=== PATIENT | male | born 1975 | race African-American/Black ===

== ENCOUNTER 2017-09-13 09:49 | Inpatient (IN) | payer OTHER ==
[2017-09-13 12:49] LABS: #Basophils 0.1 thou/uL (0.0-0.2); #Eosinphils 0.2 thou/uL (0.0-0.7); #Monocytes 0.6 thou/uL (0.11-0.59); #Neutrophils 5.6 thou/uL (1.40-6.50); %Basophils 0.6 % (0.0-1.0); %Eosinophils 2.4 % (0.0-10.0); %Lymphocytes 31.4 % (21.0-51.0); %Monocytes 6.4 % (0.0-10.0); %Neutrophils 59.3 % (42.0-75.0); Hemoglobin 13.3 g/dL (14.0-18.0); MDiff Complete? YES; Macrocytosis SLIGHT = 6-15 cells (100X) (0-5/hpf); Mean Corpuscular HGB CONC 34.8 g/dL (32.0-36.0); Mean Corpuscular Hemoglobin 36.3 pg (27.0-31.0); Mean Platelet Volume 6.7 fL (7.4-10.4); Platelet Count 253 thou/uL (130-400); RBC Distribution Width 13.2 % (11.5-14.5); Red Blood Cell (RBC) Count 3.66 mill/uL (4.70-6.10); White Blood Cell (WBC) Count 9.5 thou/uL (4.8-10.8)
[2017-09-13 12:54] LABS: ALT (SGPT) 28 U/L (8-55); AST (SGOT) 28 U/L (5-34); Albumin 3.9 g/dL (3.5-5.0); Alkaline Phosphatase 154 U/L (40-150); Anion Gap 17 mmol/L (10-20); BUN (Urea Nitrogen) 35 mg/dL (8.9-20.6); Bilirubin, Total 0.8 mg/dL (0.2-1.2); Calc. Creatinine Clearance 0 mL/min (70-130); Calcium 9.9 mg/dL (7.8-10.44); Carbon Dioxide 19 mmol/L (22-29); Chloride 104 mmol/L (98-107); Estimated GFR-MDRD 20; Globulin 5.6 g/dL (2.4-3.5); Glucose 80 mg/dL (70-105); Lipase 40 U/L (8-78); Protein, Total 9.5 g/dL (6.0-8.3); Sodium 137 mmol/L (136-145)
[2017-09-13 12:57] LABS: Potassium 2.9 mmol/L (3.5-5.1)
[2017-09-13] MEDS ORDERED: Potassium Chloride 20 MEQ TAB ONE (13:49)
--- NOTE | 2017-09-13 14:18 | RAD ---
UPRIGHT PORTABLE CHEST 1 VIEW: HISTORY: A 42-year-old male with a history of cough, not feeling well. FINDINGS: Monitor leads overlie the chest. Heart size is within normal limits. The lungs are clear. No confl uent pneumonia, overt edema, or pleural effusion. IMPRESSION: No acute intrathoracic disease. No evidence of pneumonia. Stable from prior study. Tracheostomy tu be in place. Gastrostomy tube overlies the left abdomen. POS: [facility]
--- NOTE | 2017-09-13 14:40 | RAD ---
ABDOMEN 2 VIEWS: HISTORY: A 42-year-old male with a history of bleeding around the feeding tube. The patient has not been feel ing well. FINDINGS: There is a PEG tube in place. There is some marked solid fecal material noted in the colon including a dilated rectum, evidence for significant obstipation. No evidence for free intraperitoneal air. Somewhat heterogeneous bony demineralization. Probable small right renal calculi. Possible small le ft renal calculus. IMPRESSION: PEG tube in place. Extensive solid fecal material throughout the colon including a markedly dilated rectum, evidence for significant obstipation. Probable small bilateral renal calculi. Bone deminera lization. POS: [facility]
[2017-09-13 16:45] LABS: Bilirubin Negative (Negative); Blood, Urine Moderate (Negative); Clarity CLEAR (Clear); Glucose, Urine (Dipstick) 100 mg/dL (Negative); Leukocyte Small (Negative); Nitrite Negative (Negative); Protein, Urine (Dipstick) 300 mg/dL (Neg-Trace); Specific Gravity, Urine 1.018 (1.002-1.036); Urobilinogen 0.2 mg/dL (0.2-1.0)
[2017-09-13 16:47] LABS: Bacteria/HPF Rare-Few HPF (None Seen); Hyaline Casts/LPF 4-6 HYALINE CAST LPF (0-3 Hyaline); RBC/HPF GREATER THAN 50-TNTC HPF (0-3); Squamous Epithelial 0-3 HPF (0-3)
[2017-09-13 16:49] LABS: Renal Epithelial None Seen HPF (0-3); Transitional Epithelial NONE SEEN HPF (0-3)
--- NOTE | 2017-09-13 17:29 | CT ---
ABDOMEN AND PELVIC CT SCAN WITHOUT IV CONTRAST: 09/13/17 HISTORY: 42-year-old male with history of bleeding around the PEG tube. Positive HIV, encephalitis, history of prior surgery for encephalitis. There are bilateral pleural based parenchymal changes in both lower lung zones, somewhat worse on the right side, slightly more prominent than on the prior study from 2016. This has more the appearance of chronic change or some subsegmental atelectasis. There appears to be a very small diameter contrac darron gallbladder containing gallstones without overt gallbladder wall thickening or pericholecystic fl uid. Multiple nonobstructing bilateral renal calculi. No evidence for acute obstruction. Considera ble solid fecal material throughout the colon including a markedly dilated rectum, evidence for signi ficant obstipation. No significant rectal wall thickening or perirectal edematous changes or presacra l fluid collection associated with this. Normal appearing appendix. Bone demineralization. Gastrostom y tube in place. No free intraperitoneal fluid or retroperitoneal hematoma. No free intraperitoneal a ir. IMPRESSION: Small contracted gallbladder with multiple gallstones. Left gastrostomy tube in place. Extensive pippa d fecal material including a markedly dilated rectum. Bilateral renal calculi but no acute obstruc tion. No CT evidence for acute appendicitis. POS: [facility]
--- NOTE | 2017-09-13 18:45 | RAD ---
ABDOMEN ONE VIEW 09/13/17 HISTORY: Femoral catheter placement. COMPARISON: Abdomen radiograph from 2016. FINDINGS: Femoral catheter tip projects over the right common iliac vasculature. There is extensive stool burde n throughout the rectal vault. Moderate gaseous distention of the sigmoid colon. Tube projects over the left upper quadrant of the a bdomen likely gastrostomy tube. IMPRESSION: 1. Femoral catheter tip placement in the expected location of the common femoral vasculature on the right. 2. Large volume stool throughout the rectal vault. 3. Bilateral renal calculi. POS: [facility]
[2017-09-13] MEDS ORDERED: Bacitracin Zinc 1 Packet ONE (18:52)
[2017-09-13] MEDS ORDERED: Sodium Chloride 0.9% 1,000 ML IV SCH (21:15)
--- NOTE | 2017-09-13 21:18 | PDOC.FPRHP ---
- History of Present Illness Chief Complaint: Pus from PEG tube History of Present Illness: This is a 42 y/o M with a PMHx of HIV, Hep B, and Seizure d/o, and previous nocardia brain abscess who presents due to the ED due to yellowish pus that has been coming from his PEG tube insertion site. The history was obtained predominately from the patient's mother who is his primary poultry dressing worker. She reports she first noticed the pus 2-3 days ago. He recently had his PEG tube replaced by Dr. Oswald on 08/29/2017 and this was the first time it has been changed out since it was first placed about 4 years ago. She also endorses that the patient has had worsening abdominal distension since yesterday and he had some nausea and one episode of vomiting yesterday. There was no hematemesis. She only gave him one PEG tube feeding yesterday instead of his normal 4-5 due to that. He has not been having decreased bowel movements lately. ED Course: The patient was evaluated in the ED by Dr. Luz and was given 1L NS, 40mEq KCl , and bacitracin was placed around the PEG tube. The patient also had a R femoral triple lumen placed for inability to obtain IV access. - Allergies/Adverse Reactions Allergies Allergy/AdvReac Type Severity Reaction Status Date / Time No Known Allergies Allergy Verified 09/13/17 22:48 - Home Medications Medication Instructions Recorded Confirmed Type Topiramate 50 mg PER TUBE BID 05/01/16 09/13/17 History Scopolamine [Transderm Scop] 1.5 mg TOP Q3D patch 07/02/16 09/13/17 Rx Ipratropium/Albuterol Sulfate 3 ml NEB Q4H PRN 09/13/17 09/13/17 History [Duoneb] Lopinavir/Ritonavir [Kaletra 80 5 ml PER TUBE BID 09/13/17 09/13/17 History mg-20 mg/ml Soln] Multivit,Tx with Iron,Minerals 1 tablet PER TUBE DAILY 09/13/17 09/13/17 History [Thera-M] Sodium Bicarbonate [Bicarbonate, 650 mg PER TUBE DAILY 09/13/17 09/13/17 History Sodium] Tenofovir DISOPROXIL FUMARATE 300 mg PER TUBE DAILY 09/13/17 09/13/17 History [Viread] lamiVUDine [Epivir Oral Solution] 7.5 ml PER TUBE BID 09/13/17 09/13/17 History levETIRAcetam [Levetiracetam] 7.5 ml PER TUBE BID 09/13/17 09/13/17 History - History PMHx: HIV Hepatitis B Seizure disorder h/o Nocardia brain abscess PSHx: Craniotomy for Nocardia brain abscess PEG tube Tracheostomy FHx: Denies Social: former tobacco user, no EtOH or drug use. Is disabled and lives with his mom as his primary poultry dressing worker. PCP: Dr. Briseno at [facility] - Review of Systems General: reports: fever/chills (99.4) Eyes: denies: eye pain ENT: reports: nasal congestion, rhinorrhea Respiratory: reports: congestion. denies: cough, shortness of breath Cardiovascular: denies: chest pain, edema Gastrointestinal: reports: nausea, vomiting, constipation, abdominal pain. denies: diarrhea, GI bleeding Genitourinary: denies: dysuria, polyuria Skin: denies: rashes, lesions Musculoskeletal: denies: pain, tenderness Neurological: reports: weakness (chronic). denies: seizure (last seizure was 1.5 years ago) - Vital signs BP: 107/79 HR: 76 RR: 16 Tmax: 98.6 Pox: 100% on RA Wt: 71 kg - Physical Exam Constitutional: NAD (trach in place), awake, alert and oriented HEENT: normocephalic and atraumatic, PERRLA, EOMI, conjunctiva clear, normal nasal mucosa, MMM, oropharynx clear Neck: supple, trachea midline (tracheostomy in place) Heart: RRR, normal S1/S2, pulses present -Lungs: No use of accessory muscles of respiration, good respiratory effort, coarse breath sounds bilaterally, numerous secretions from trach. Abdomen: soft, non-tender, bowel sounds present, no masses/distention (PEG tube in place, no signs of erythema or pus) -Neurological: follows commands, decreased strength bilaterally Skin: no rash/lesions, good turgor, capillary refill <2 seconds Psychiatric: normal mood and affect FMR H&P: Results - Labs Result Diagrams: 09/14/17 05:00 09/14/17 05:00 Lab results: WBC 9.5 thou/uL (4.8-10.8) 09/13/17 12:23 Hgb 13.3 g/dL (14.0-18.0) L 09/13/17 12:23 Hct 38.2 % (42.0-52.0) L 09/13/17 12:23 MCV 105.0 fl (80.0-94.0) H 09/13/17 12:23 Plt Count 253 thou/uL (130-400) 09/13/17 12:23 Neutrophils % 59.3 % (42.0-75.0) 09/13/17 12:23 Sodium 137 mmol/L (136-145) 09/13/17 12:23 Potassium 2.9 mmol/L (3.5-5.1) L* 09/13/17 12:23 Chloride 104 mmol/L (98-107) 09/13/17 12:23 Carbon Dioxide 19 mmol/L (22-29) L 09/13/17 12:23 BUN 35 mg/dL (8.9-20.6) H 09/13/17 12:23 Creatinine 4.08 mg/dL (0.6-1.3) H 09/13/17 12:23 Glucose 80 mg/dL (70-105) 09/13/17 12:23 Lactic Acid 1.5 mmol/L (0.5-2.2) 09/13/17 12:23 Calcium 9.9 mg/dL (7.8-10.44) 09/13/17 12:23 Total Bilirubin 0.8 mg/dL (0.2-1.2) 09/13/17 12:23 AST 28 U/L (5-34) 09/13/17 12:23 ALT 28 U/L (8-55) 09/13/17 12:23 Alkaline Phosphatase 154 U/L (40-150) H 09/13/17 12:23 Serum Total Protein 9.5 g/dL (6.0-8.3) H 09/13/17 12:23 Albumin 3.9 g/dL (3.5-5.0) 09/13/17 12:23 Lipase 40 U/L (8-78) 09/13/17 12:23 Urine Ketones Trace mg/dL (Negative) H 09/13/17 16:25 Urine Blood Moderate (Negative) H 09/13/17 16:25 Urine Nitrite Negative (Negative) 09/13/17 16:25 Ur Leukocyte Esterase Small (Negative) H 09/13/17 16:25 Urine RBC GREATER THAN 50-TNTC HPF (0-3) H 09/13/17 16:25 Urine WBC 11-20 HPF (0-3) H 09/13/17 16:25 Ur Squamous Epith Cells 0-3 HPF (0-3) 09/13/17 16:25 Urine Bacteria Rare-Few HPF (None Seen) 09/13/17 16:25 - Radiology Interpretation CT scan - abdomen Status: report reviewed by me Additional comment: PEG tube in place, significant amount of stool in rectum, bilaterally non- obstructing renal calculi Chest x-ray Status: report reviewed by me Additional comment: No acute process, trach in place, PEG in place FMR H&P: A/P - Problem List (1) SUSIE (acute kidney injury) Current Visit: Yes Status: Acute Code(s): N17.9 - ACUTE KIDNEY FAILURE, UNSPECIFIED (2) Hypokalemia Current Visit: Yes Status: Acute Code(s): E87.6 - HYPOKALEMIA (3) Constipation Current Visit: Yes Status: Acute Code(s): K59.00 - CONSTIPATION, UNSPECIFIED Qualifiers: Constipation type: unspecified constipation type Qualified Code(s): K59.00 - Constipation, unspecified (4) Human immunodeficiency virus (HIV) seropositivity Current Visit: No Status: Chronic Code(s): Z21 - ASYMPTOMATIC HUMAN IMMUNODEFICIENCY VIRUS INFECTION STATUS (5) S/P percutaneous endoscopic gastrostomy (PEG) tube placement Current Visit: No Status: Chronic Code(s): Z93.1 - GASTROSTOMY STATUS (6) Seizure disorder Current Visit: No Status: Chronic Code(s): G40.909 - EPILEPSY, UNSP, NOT INTRACTABLE, WITHOUT STATUS EPILEPTICUS (7) Status post tracheostomy Current Visit: No Status: Chronic Code(s): Z93.0 - TRACHEOSTOMY STATUS (8) Type B viral hepatitis Current Visit: No Status: Chronic Code(s): B19.10 - UNSPECIFIED VIRAL HEPATITIS B WITHOUT HEPATIC COMA (9) history of nocardia abscess brain Current Visit: No Status: Chronic - Plan SUSIE The patient has a signficant SUSIE with a Cr of 4 and GFR of 20. His baseline Cr is around 1. The patient has had this happen before about a year ago and it was found to be due to dehydration when he had an episode of C. diff. 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 He is s/p 1L NS bolus in the ED. -NS @ 125 -Avoid nephrotoxic agents -Urine Na, Urine Cr, Urine Osm, Serum Osm -Monitor BUN/Cr Hypokalemia The patient's initial K was 2.9. He is s/p 40mEq of K in the ED. Magnesium within normal limits. This could be 2/2 vomiting vs decreased PEG intake. -Replete as needed -Continue to monitor Constipation Unknown cause at this time. The patient had a small BM in the ED and a much larger BM when he got to the floor. -Bowel regimen and monitor Rule-Out for PEG tube Infection It is unlikely that this is infected at this time. There were no signs of infection on our exam. Per the ED physician there appeared to be friable tissue around the insertion site. s/p bacitracin in the ED -f/u outpatient with GI vs inpatient consult depending on if this continues to improve -Continue to monitor HIV -Hold nephrotoxic agents at this time due to SUSIE Seizure disorder Last seizure was 1.5 years ago. 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 removal about 4 years ago VTE ppx: Heparin Code status: full Symptomatic meds will be provided Disposition/LOS: Admit to tele, length of stay likely 2 days FMR H&P: Upper Level - Plan Date/Time: 09/13/172115 Jessica Harding, have evaluated this patient and agree with findings/plan as outlined by fashion intern resident. Pertinent changes/additions are listed here. 42 yr old male with PMH of HIV, epilepsy, hemiplegia, nocardiosis s/p craniotomy for intracranial abscess, Hep B, anemia who presented to ER today for abdominal distention and peg tube drainage. Patients primary poultry dressing worker, his mother, answers all questions. He had peg tube placed 4 years ago with trach and had first change of peg tube on 08/29/[address] Fowler. She notes some yellowish-white pus draining around side of peg tube. His abdomen was distended yesterday and vomited several times. No c/o abdominal pain. 2 large BM s today. Mother reports slightly decreased urine output at night however also had 400 ml last night. She reports a temp to low 99 this past week. Does have a hx of hospitalization at [facility] in 07/2016 for acute renal failure thought to be 2/2 to dehydration from diarrhea from C. diff infection. Cr at that time as high as 4 with improvement to 4. Appears Cr in 01/2017 was 1.94. PE: Gen: NAD, lying in bed Cardiac: RRR no M/R/G Resp: Rhonchi in BLL, course breath sounds throughout with evidence for upper airway secretions from trach Abd: soft, NTTP, hypoactive BS, no guarding or rigidity, no evidence for drainage from peg tube Ext: no BLE edema, 2+ post tibial pulse Imaging Abd and pelvis CT scan with IV contrast- extensive solid fecal material with markedly dilated rectum. Eliceo nonobstructing renal calculi CXR- no acute intrathoracic dz, no PNA, trach tube in place, gastrotomy tube overlies left abdomen. labs- see fashion intern note above A/P 42 year old AAM 1. Acute on chronic kidney injury- Will obtain urine studies and treat with IV fluids. Strict I/O. Will renally dose meds. check urine culture. 2. hypokalemia- repleted in ER and recheck stable. recheck BMP AM 3. Chronic respiratory failure s/p tracheostomy- cont trach care and PRN O2 4. Chronic dysphagia s/p PEG placement- Cont to monitor, consider GI consult if drainage worsens but otherwise likely f/u outpt. 5. HIV- hold HIV meds and monitor creatinine 6. Seizure disorder- will renally dose keppra and check keppra level. 7. history of obstructive hydrocephalus s/p evacuation. 8. hx of nocardia brain abscess s/p removal 9. Bed-bound status- will start ppx heparin 10. chronic Macrocytic anemia 11. hx of chronic Hep B Attending Addendum - Attending Addendum Date/Time: 09/14/17 1121 I personally evaluated the patient and discussed the management with Dr. Chery I agree with the History, Examination, Assessment and Plan documented above with any addition or exceptions noted below. Well known patient to [facility] with history HIV with Intracerebral Nocardia abscess s/p craniotomy secondary seizure d/o, tracheostomy , and peg tube. Recent change out of Peg tube lead to Business Economist(Mother) concern new drainage around tube ER evaluation and notable hypokalemia and SUSIE. Patient with prior SUSIE urine with cast , hematuria will ask Nephrology consultation. REC if none recently, check viral load and CD4 count consider ID consult review HIV Rx
[2017-09-13] MEDS ORDERED: Bisacodyl 10 MG SUPP PR PRN (22:05)
[2017-09-13] MEDS ORDERED: Ondansetron ODT 4 MG TAB PER TUBE PRN (22:05)
[2017-09-13] MEDS ORDERED: Ondansetron HCl/PF 4 MG/2 ML Vial IVP PRN (22:05)
[2017-09-13] MEDS: Sodium Chloride 0.9% 1,000 ML IV SCH (22:49)
[2017-09-13] MEDS ORDERED: Scopolamine 1.5 mg/72 hour Patch TOP SCH (23:00)
[2017-09-14 00:35] LABS: Anion Gap 12 mmol/L (10-20); BUN (Urea Nitrogen) 36 mg/dL (8.9-20.6); Calc. Creatinine Clearance 25 mL/min (70-130); Calcium 9.2 mg/dL (7.8-10.44); Carbon Dioxide 20 mmol/L (22-29); Chloride 109 mmol/L (98-107); Estimated GFR-MDRD 21; Glucose 75 mg/dL (70-105); Potassium 3.4 mmol/L (3.5-5.1); Sodium 138 mmol/L (136-145)
[2017-09-14 02:02] LABS: Creatinine, Urine 104.84 mg/dL (63-166)
[2017-09-14] MEDS: levETIRAcetam 500 mg/5 ml Oral Solution PER TUBE SCH ×3 (04:50→20:59)
[2017-09-14] MEDS: Sodium Chloride 0.9% 1,000 ML IV SCH ×3 (04:50→20:59)
[2017-09-14 05:25] LABS: #Basophils 0.1 thou/uL (0.0-0.2); #Eosinphils 0.2 thou/uL (0.0-0.7); #Lymphocytes 2.6 thou/uL (1.20-3.40); #Monocytes 0.8 thou/uL (0.11-0.59); %Basophils 0.8 % (0.0-1.0); %Eosinophils 2.8 % (0.0-10.0); %Lymphocytes 29.7 % (21.0-51.0); %Monocytes 8.7 % (0.0-10.0); Hemoglobin 11.3 g/dL (14.0-18.0); Mean Corpuscular HGB CONC 33.7 g/dL (32.0-36.0); Mean Corpuscular Hemoglobin 36.2 pg (27.0-31.0); Mean Platelet Volume 6.4 fL (7.4-10.4); Platelet Count 231 thou/uL (130-400); Red Blood Cell (RBC) Count 3.11 mill/uL (4.70-6.10); White Blood Cell (WBC) Count 8.7 thou/uL (4.8-10.8)
[2017-09-14 05:37] LABS: Anion Gap 12 mmol/L (10-20); BUN (Urea Nitrogen) 34 mg/dL (8.9-20.6); Calc. Creatinine Clearance 26 mL/min (70-130); Calcium 9.2 mg/dL (7.8-10.44); Carbon Dioxide 20 mmol/L (22-29); Chloride 113 mmol/L (98-107); Estimated GFR-MDRD 22; Glucose 78 mg/dL (70-105); Potassium 3.6 mmol/L (3.5-5.1); Sodium 141 mmol/L (136-145)
--- NOTE | 2017-09-14 07:47 | PDOC.FM ---
- Subjective Subjective: Pt reports doing fine. Mother is one in room. Denies any fever or chills overnight. Denies any acute events overnight. Denies any increased SOB. Concerned because he is having a lot of secretions out of his trach. Came in because was concerned about PEG tube sight. Denies any drainage this morning - Objective MAR Reviewed: Yes Vital Signs & Weight: Vital Signs (12 hours) Temp Pulse Resp BP Pulse Ox 09/14/17 06:16 100 09/14/17 05:06 97.8 F 71 17 105/62 100 09/14/17 04:33 100 09/13/17 21:34 98.3 F 89 18 164/64 H 92 L 09/13/17 21:21 98.3 F 89 18 100 Weight Weight 70.896 kg I&O: 09/13/17 09/14/17 09/15/17 06:59 06:59 06:59 Intake Total 1375 Output Total 350 Balance 1025 Result Diagrams: 09/14/17 05:00 09/14/17 05:00 Radiology Reviewed by me: Yes (Imaging reviewed. Shows obstipation in rectal canal) <Wilber Pollard - Last Filed: 09/14/17 07:43> - Objective Vital Signs & Weight: Vital Signs (12 hours) Temp Pulse Resp BP Pulse Ox 09/14/17 11:29 98.4 F 67 18 104/59 L 100 09/14/17 08:35 98.3 F 65 16 100 09/14/17 08:30 98.3 F 65 16 92/55 L 100 09/14/17 06:16 100 09/14/17 05:06 97.8 F 71 17 105/62 100 09/14/17 04:33 100 Weight Weight 70.896 kg I&O: 09/13/17 09/14/17 09/15/17 06:59 06:59 06:59 Intake Total 1375 Output Total 350 Balance 1025 Result Diagrams: 09/14/17 05:00 09/14/17 05:00 <Kevin Ryan - Last Filed: 09/14/17 12:41> Phys Exam - Physical Examination Constitutional: NAD HEENT: PERRLA, moist MMs Neck: no nodes, no JVD, supple, full ROM Rales and some mild crackles noted Cardiovascular: RRR, no significant murmur, no rub Gastrointestinal: soft, non-tender, positive bowel sounds Mild distention No sign of redness, swelling or drainage noted around PEG Tube Musculoskeletal: no edema, pulses present Neurological: non-focal, moves all 4 limbs Skin: no rash, cap refill <2 seconds <Wilber Pollard - Last Filed: 09/14/17 07:43> Dx/Plan (1) SUSIE (acute kidney injury) Code(s): N17.9 - ACUTE KIDNEY FAILURE, UNSPECIFIED Status: Acute (2) Constipation Code(s): K59.00 - CONSTIPATION, UNSPECIFIED Status: Acute QualifierTitle: Constipation type: unspecified constipation type Qualified Code(s): K59.00 - Constipation, unspecified (3) Hypokalemia Code(s): E87.6 - HYPOKALEMIA Status: Acute (4) Human immunodeficiency virus (HIV) seropositivity Code(s): Z21 - ASYMPTOMATIC HUMAN IMMUNODEFICIENCY VIRUS INFECTION STATUS Status: Chronic (5) Seizure disorder Code(s): G40.909 - EPILEPSY, UNSP, NOT INTRACTABLE, WITHOUT STATUS EPILEPTICUS Status: Chronic - Plan Plan: SUSIE The patient has a signficant SUSIE with a Cr of 4 and GFR of 20. His baseline Cr is around 1. The patient has had this happen before about a year ago and it was found to be due to dehydration when he had an episode of C. diff. 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 He is s/p 1L NS bolus in the ED. -NS @ 125 -Avoid nephrotoxic agents -Urine Na, Urine Cr, Urine Osm, Serum Osm. FeNa calculates 1.5%. Shows intrinsic pathology. Hyaline casts noted. Likely due to medications and dehydration. -Could be possible UTI, UA shows LE and WBC, not having sx's at this time. Will get urine cx and tx if positive. -Monitor BUN/Cr -improving today. -Possibly consult Nephrology to discuss medications and help with tx Hypokalemia-Resolved The patient's initial K was 2.9. He is s/p 40mEq of K in the ED. Magnesium within normal limits. This could be 2/2 vomiting vs decreased PEG intake. -K 3.6 today -Replete as needed -Continue to monitor Constipation Unknown cause at this time. The patient had a small BM in the ED and a much larger BM when he got to the floor. -Bowel regimen and monitor Rule-Out for PEG tube Infection It is unlikely that this is infected at this time. There were no signs of infection on our exam. Per the ED physician there appeared to be friable tissue around the insertion site. s/p bacitracin in the ED -f/u outpatient with GI vs inpatient consult depending on if this continues to improve -Continue to monitor. Improved today no redness or swelling noted. No sign of infection HIV -Hold nephrotoxic agents at this time due to SUSIE -Will want to f/u outpatient to discuss medications Seizure disorder Last seizure was 1.5 years ago. 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 removal about 4 years ago VTE ppx: Heparin Code status: full Symptomatic meds will be provided <Wibler Pollard - Last Filed: 09/14/17 07:43> (1) SUSIE (acute kidney injury) Code(s): N17.9 - ACUTE KIDNEY FAILURE, UNSPECIFIED Status: Acute (2) Hypokalemia Code(s): E87.6 - HYPOKALEMIA Status: Acute (3) Constipation Code(s): K59.00 - CONSTIPATION, UNSPECIFIED Status: Acute Qualifiers: Constipation type: unspecified constipation type Qualified Code(s): K59.00 - Constipation, unspecified (4) Human immunodeficiency virus (HIV) seropositivity Code(s): Z21 - ASYMPTOMATIC HUMAN IMMUNODEFICIENCY VIRUS INFECTION STATUS Status: Chronic (5) S/P percutaneous endoscopic gastrostomy (PEG) tube placement Code(s): Z93.1 - GASTROSTOMY STATUS Status: Chronic (6) Seizure disorder Code(s): G40.909 - EPILEPSY, UNSP, NOT INTRACTABLE, WITHOUT STATUS EPILEPTICUS Status: Chronic (7) Status post tracheostomy Code(s): Z93.0 - TRACHEOSTOMY STATUS Status: Chronic (8) Type B viral hepatitis Code(s): B19.10 - UNSPECIFIED VIRAL HEPATITIS B WITHOUT HEPATIC COMA Status: Chronic (9) history of nocardia abscess brain Status: Chronic <Kevin Ryan - Last Filed: 09/14/17 12:41> Attending Addendum - Attending Addendum Date/Time: 09/14/17 1240 I personally evaluated the patient and discussed the management with Dr. Pollard I agree with the History, Examination, Assessment and Plan documented above with any addition or exceptions noted below.Appreciate Pier Master Assistant rec regard SUSIE. <Kevin Ryan - Last Filed: 09/14/17 12:41>
[2017-09-14] MEDS ORDERED: FLU VACC QS2017-18 36 mo. & older 0.5 ML SYRINGE IM ONE (09:00)
[2017-09-14] MEDS ORDERED: Prevnar 13-Val Conj/PF 0.5 ML SYRINGE IM ONE (09:00)
[2017-09-14] MEDS ORDERED: Enoxaparin Sodium 30 MG/0.3 ML SYRINGE SC SCH (09:00)
[2017-09-14] MEDS: Multivitamin W/ Minerals 1 TAB PER TUBE SCH (09:05)
[2017-09-14] MEDS: Topiramate 25 MG TAB PER TUBE SCH ×2 (09:05→21:09)
[2017-09-14] MEDS: Docusate Sodium 100 MG/10 ML UDCUP PER TUBE SCH ×2 (09:05→21:00)
[2017-09-14] MEDS: Sodium Bicarbonate Tab 325 MG TAB PER TUBE SCH (09:06)
[2017-09-14] MEDS: Heparin 5,000 UNITS/ML VIAL SC SCH ×2 (09:07→16:17)
--- NOTE | 2017-09-14 19:28 | CON ---
DATE OF CONSULTATION: 09/14/2017 NEPHROLOGY CONSULTATION REASON FOR CONSULTATION: Elevated creatinine. HISTORY OF PRESENT ILLNESS: This is a very pleasant 42-year-old gentleman, who is bed-bound, present ed to the hospital last night for G-tube evaluation, which was site. The patient's baseline cr eatinine was 0.9 in 06/2016 and 1.9 in January, which increased to 4.08 yesterday and has improved to 3.76 after hydration. The patient has never been under the care of a robot programmer. The patient is n onverbal. PAST MEDICAL HISTORY: Significant for HIV, history of encephalopathy, history of feeding tube placem ent, history of bed-bound. HOME MEDICATIONS: Reviewed. HOSPITAL MEDICATIONS: Reviewed. FAMILY HISTORY: Reviewed. ALLERGIES: Reviewed. REVIEW OF SYSTEMS: Unobtainable, the patient is nonverbal. PHYSICAL EXAMINATION: VITAL SIGNS: The patient is afebrile, pulse 67, blood pressure 104/59. GENERAL APPEARANCE AND MENTAL STATUS: Fair. HEAD/NECK: Normocephalic. Atraumatic. EYES: EOMI. No deformity. EARS: Clear. No ulcers. NOSE: Intact. No lesions. MOUTH: Clear. No discharge. THROAT: Clear. No exudate. LUNGS: Clear. No crackles. CARDIAC: S1, S2. No rub. ABDOMEN: Benign. BS+. GENITALIA/RECTUM: Funez absent. BACK/EXTREMITIES: Edema 0+ Ulcer- NEUROLOGICAL: The patient is nonverbal. SKIN: Rash- Bruise- LYMPHATICS: Edema- Ulcer- LABORATORY DATA: Shows potassium 3.6, bicarbonate 20, and creatinine 3.76. ASSESSMENT AND RECOMMENDATIONS: 1. Acute kidney injury with chronic kidney disease, most likely because of the decreased effective a rterial blood volume. Other etiologies could be lactic acidosis and blood volume. Other possible causes could be tenofovir induced acute kidney injury. Again, I will leave it up to Infect ious Disease to adjust medications. 2. Metabolic acidosis, stable. 3. Hypotension. We would recommend hydration aggressive and follow renal function closely. No mary cation for dialysis at this time. Prognosis is extremely poor.
[2017-09-14] MEDS: Acetaminophen 650 MG/20.3 ML UDCUP PO PRN (20:59)
[2017-09-14] MEDS: Lopinavir/Ritonavir 80 MG/20 MG per ML Oral Solution PER TUBE SCH (21:00)
[2017-09-15] MEDS: Heparin 5,000 UNITS/ML VIAL SC SCH ×4 (00:14→21:45)
[2017-09-15] MEDS: Sodium Chloride 0.9% 1,000 ML IV SCH ×4 (04:47→18:54)
[2017-09-15] MEDS: Acetaminophen 650 MG/20.3 ML UDCUP PO PRN (04:48)
[2017-09-15 05:31] LABS: #Basophils 0.1 thou/uL (0.0-0.2); #Eosinphils 0.1 thou/uL (0.0-0.7); #Lymphocytes 2.6 thou/uL (1.20-3.40); #Monocytes 0.6 thou/uL (0.11-0.59); #Neutrophils 4.5 thou/uL (1.40-6.50); %Basophils 0.8 % (0.0-1.0); %Eosinophils 1.6 % (0.0-10.0); %Lymphocytes 32.4 % (21.0-51.0); %Monocytes 7.7 % (0.0-10.0); %Neutrophils 57.4 % (42.0-75.0); Hemoglobin 10.8 g/dL (14.0-18.0); Mean Corpuscular HGB CONC 34.9 g/dL (32.0-36.0); Mean Corpuscular Hemoglobin 36.7 pg (27.0-31.0); Mean Platelet Volume 7.3 fL (7.4-10.4); Platelet Count 205 thou/uL (130-400); Red Blood Cell (RBC) Count 2.94 mill/uL (4.70-6.10); White Blood Cell (WBC) Count 7.9 thou/uL (4.8-10.8)
[2017-09-15 06:01] LABS: Anion Gap 11 mmol/L (10-20); BUN (Urea Nitrogen) 30 mg/dL (8.9-20.6); Calc. Creatinine Clearance 33 mL/min (70-130); Calcium 8.7 mg/dL (7.8-10.44); Carbon Dioxide 16 mmol/L (22-29); Chloride 118 mmol/L (98-107); Estimated GFR-MDRD 26; Glucose 86 mg/dL (70-105); Potassium 3.2 mmol/L (3.5-5.1); Sodium 142 mmol/L (136-145)
--- NOTE | 2017-09-15 06:04 | PDOC.FM ---
- Subjective Subjective: This morning patient denies N/V/D, pain, shortness of breath, or cough. Mother states she has no concerns and is wondering when she will be able to take patient home. Discussed persistent elevated creatinine and need for IVF. Mother is in understanding. - Objective Vital Signs & Weight: Vital Signs (12 hours) Temp Pulse Resp BP Pulse Ox 09/15/17 00:05 99.1 F 58 L 24 H 105/50 L 100 09/14/17 20:05 100 F H 74 20 132/74 100 09/14/17 20:04 73 16 99 Weight Weight 74.979 kg I&O: 09/13/17 09/14/17 09/15/17 06:59 06:59 06:59 Intake Total 1375 367 Output Total 350 1010 Balance 1025 -643 Result Diagrams: 09/15/17 04:25 09/15/17 04:25 Phys Exam - Physical Examination Constitutional: NAD HEENT: PERRLA, moist MMs Neck: no nodes, full ROM Respiratory: no wheezing mild stridor throughout Cardiovascular: RRR, no significant murmur Gastrointestinal: soft, non-tender, no distention, positive bowel sounds Musculoskeletal: no edema, pulses present Neurological: non-focal, moves all 4 limbs Psychiatric: normal affect Skin: no rash, cap refill <2 seconds Deviation from normal: PEG site shows no signs of redness or inflammation Dx/Plan (1) SUSIE (acute kidney injury) Code(s): N17.9 - ACUTE KIDNEY FAILURE, UNSPECIFIED Status: Acute (2) Constipation Code(s): K59.00 - CONSTIPATION, UNSPECIFIED Status: Acute Qualifiers: Constipation type: unspecified constipation type Qualified Code(s): K59.00 - Constipation, unspecified (3) Hypokalemia Code(s): E87.6 - HYPOKALEMIA Status: Acute (4) UTI (urinary tract infection) Status: Acute Qualifiers: Urinary tract infection type: acute cystitis (5) Human immunodeficiency virus (HIV) seropositivity Code(s): Z21 - ASYMPTOMATIC HUMAN IMMUNODEFICIENCY VIRUS INFECTION STATUS Status: Chronic (6) S/P percutaneous endoscopic gastrostomy (PEG) tube placement Code(s): Z93.1 - GASTROSTOMY STATUS Status: Chronic (7) Status post tracheostomy Code(s): Z93.0 - TRACHEOSTOMY STATUS Status: Chronic (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 His baseline Cr is around 1. The patient has had this happen before about a year ago and it was found to be due to dehydration when he had an episode of C. diff. 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 He is s/p 1L NS bolus in the ED. -NS @ 150, 500ml bolus 09/15 -Avoid nephrotoxic agents - Keppra dose decreased by 1/2 -Urine Na, Urine Cr, Urine Osm, Serum Osm. FeNa calculates 1.5%. Shows intrinsic pathology. Hyaline casts noted. Likely due to medications and dehydration. -Could be possible UTI, UA shows LE and WBC, not having sx's at this time. Will get urine cx and tx if positive. -Cr 4 -> 3.79-> 3.19 -Possibly consult Nephrology to discuss medications and help with tx Hypokalemia-Resolved The patient's initial K was 2.9. He is s/p 40mEq of K in the ED. Magnesium within normal limits. This could be 2/2 vomiting vs decreased PEG intake. -K 3.2 today, added PO BID -Replete as needed -Continue to monitor Constipation - CT on admission shows obstipation, had large BM upon arriving on floor - large BM early AM 09/15 Rule-Out for PEG tube Infection It is unlikely that this is infected at this time. There were no signs of infection on our exam. Per the ED physician there appeared to be friable tissue around the insertion site. s/p bacitracin in the ED -f/u outpatient with GI vs inpatient consult depending on if this continues to improve -Continue to monitor. no redness or swelling noted. No sign of infection HIV -restarted HIV meds, will follow Cr - check viral load, CD4 Seizure disorder Last seizure was 1.5 years ago. 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
[2017-09-15 08:31] VITALS: BMI 24.4
[2017-09-15] MEDS ORDERED: Potassium Chloride 20 MEQ TAB PO SCH ×2 (08:43→09:00)
[2017-09-15] MEDS ORDERED: Sodium Chloride 0.9% 500 ML IV SCH (08:45)
[2017-09-15] MEDS: levETIRAcetam 500 mg/5 ml Oral Solution PER TUBE SCH ×2 (09:59→21:44)
[2017-09-15] MEDS: Topiramate 25 MG TAB PER TUBE SCH ×2 (09:59→21:44)
[2017-09-15] MEDS: Docusate Sodium 100 MG/10 ML UDCUP PER TUBE SCH ×2 (09:59→21:43)
[2017-09-15] MEDS: Sodium Bicarbonate Tab 325 MG TAB PER TUBE SCH (09:59)
[2017-09-15] MEDS: Multivitamin W/ Minerals 1 TAB PER TUBE SCH (09:59)
[2017-09-15] MEDS: Lopinavir/Ritonavir 80 MG/20 MG per ML Oral Solution PER TUBE SCH ×2 (10:03→21:46)
--- NOTE | 2017-09-15 12:03 | PRG ---
DATE OF SERVICE: 09/15/2017 SUBJECTIVE: Patient was seen and examined at bedside and overnight events noted. Patient denies any shortness of breath or chest pain or palpitation. No history of nausea or vomitin g or diarrhea or fever or chills or cramps. OBJECTIVE: GENERAL: This is a thin-built male, in no apparent distress. VITAL SIGNS: Temperature 98.9, pulse 60, respiratory rate 18, blood pressure 134/93. HEENT: Atraumatic, normocephalic. Oral mucosa is moist NECK: Supple. CARDIOVASCULAR: S1 and S2 heard. Rate and rhythm regular. RESPIRATORY: Clear to auscultation. GASTROINTESTINAL: Abdomen is soft. MUSCULOSKELETAL: No tenderness. No edema. DERMATOLOGIC: No skin rash. NEUROLOGIC: Alert and awake and oriented X3, No focal neurologic deficits. Moving all the extremitie s. PSYCHIATRIC: Mood and affect normal. LABORATORY DATA: Potassium is 3.2, BUN 30, creatinine is 3.1. ASSESSMENT AND PLAN: 1. Acute kidney injury on chronic kidney disease with significant improvement. Today, creatinine is 3.1 from 3.7. Continue supportive care, avoid nephrotoxins. 2. Hypokalemia, replace and monitor. 3. Metabolic acidosis seems to be chronic and need close monitoring as outpatient. 4. Hypertension with improvement today. 5. Continue supportive care. We will follow. 6. Anemia of chronic disease.
--- NOTE | 2017-09-15 13:39 | ADD-PRG ---
DATE OF SERVICE: 09/15/2017 ADDENDUM This is an addendum to the note of Dr. Isaias Rodriguez. Mr. Russell is an unfortunate 42-year-old black ma n well known to the service. He was admitted with acute kidney injury likely secondary to dehydratio n versus medication effect. In the event, we are giving him intravenous fluids. We have temporarily reduced and/or held medications that might be responsible for his SUSIE as well. His BUN and creatini ne are trending back to his baseline of normalcy. We will continue IV fluids and recheck this tomorr ow. Anticipation of discharge in a day or two.
[2017-09-15] MEDS: Potassium Chloride 20 MEQ TAB PO SCH (17:05)
[2017-09-16] MEDS: Sodium Chloride 0.9% 1,000 ML IV SCH ×3 (00:56→16:29)
[2017-09-16 05:34] LABS: #Basophils 0.1 thou/uL (0.0-0.2); #Eosinphils 0.2 thou/uL (0.0-0.7); #Lymphocytes 2.3 thou/uL (1.20-3.40); #Monocytes 0.6 thou/uL (0.11-0.59); %Basophils 0.8 % (0.0-1.0); %Eosinophils 2.2 % (0.0-10.0); %Lymphocytes 32.6 % (21.0-51.0); %Monocytes 8.1 % (0.0-10.0); %Neutrophils 56.4 % (42.0-75.0); Hemoglobin 10.5 g/dL (14.0-18.0); Mean Corpuscular HGB CONC 33.7 g/dL (32.0-36.0); Mean Platelet Volume 6.7 fL (7.4-10.4); Platelet Count 189 thou/uL (130-400); RBC Distribution Width 13.3 % (11.5-14.5); Red Blood Cell (RBC) Count 2.83 mill/uL (4.70-6.10); White Blood Cell (WBC) Count 7.1 thou/uL (4.8-10.8)
--- NOTE | 2017-09-16 06:05 | PDOC.FM ---
- Subjective Subjective: This morning patient's mother reports there were no concerns overnight. No pain or shortness of breath reported, making adequate urine. Patient's mother is anxious to go home when medically indicated. - Objective Vital Signs & Weight: Vital Signs (12 hours) Temp Pulse Resp BP BP Pulse Ox 09/16/17 04:00 97.8 F 61 20 98/63 100 09/16/17 00:00 97.9 F 59 L 20 92/50 L 100 09/15/17 20:00 98.3 F 59 L 18 99/55 L 100 Weight Admit Weight 71.033 kg Weight 74.979 kg I&O: 09/14/17 09/15/17 09/16/17 06:59 06:59 06:59 Intake Total 1375 2647 1295 Output Total 350 1710 750 Balance 1025 937 545 Result Diagrams: 09/16/17 05:05 09/16/17 05:05 Phys Exam - Physical Examination Constitutional: NAD HEENT: PERRLA, moist MMs Neck: no nodes, full ROM Respiratory: no wheezing, no rales, no rhonchi stridorous throughot, trach collar in place Cardiovascular: RRR, no significant murmur Gastrointestinal: soft, non-tender, no distention, positive bowel sounds Musculoskeletal: no edema, pulses present Neurological: non-focal Skin: no rash, cap refill <2 seconds Dx/Plan (1) SUSIE (acute kidney injury) Code(s): N17.9 - ACUTE KIDNEY FAILURE, UNSPECIFIED Status: Acute (2) Constipation Code(s): K59.00 - CONSTIPATION, UNSPECIFIED Status: Acute Qualifiers: Constipation type: unspecified constipation type Qualified Code(s): K59.00 - Constipation, unspecified (3) Hypokalemia Code(s): E87.6 - HYPOKALEMIA Status: Acute (4) UTI (urinary tract infection) Status: Acute Qualifiers: Urinary tract infection type: acute cystitis (5) Human immunodeficiency virus (HIV) seropositivity Code(s): Z21 - ASYMPTOMATIC HUMAN IMMUNODEFICIENCY VIRUS INFECTION STATUS Status: Chronic (6) S/P percutaneous endoscopic gastrostomy (PEG) tube placement Code(s): Z93.1 - GASTROSTOMY STATUS Status: Chronic (7) Status post tracheostomy Code(s): Z93.0 - TRACHEOSTOMY STATUS Status: Chronic (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 FeNa calculates 1.5%. Shows intrinsic pathology. Hyaline casts noted. Likely due to medications and dehydration. -Could be possible UTI, UA shows LE and WBC, not having sx's at this time. Will get urine cx and tx if positive. -Cr 4 -> 3.79-> 3.19 -> 2.59 -Nephro consulted, appreciate recs -anticipate d/c later today with close f/u outpatient, SUSIE likely 2/2 dehydration Hypokalemia-Resolved The patient's initial K was 2.9. He is s/p 40mEq of K in the ED. Magnesium within normal limits. -K 3.9 today -Replete as needed -Continue to monitor Constipation - CT on admission shows obstipation, had large BM upon arriving on floor - large BM early AM 09/15 Rule-Out for PEG tube Infection It is unlikely that this is infected at this time. There were no signs of infection on our exam. Per the ED physician there appeared to be friable tissue around the insertion site. s/p bacitracin in the ED -f/u outpatient with GI vs inpatient consult depending on if this continues to improve -Continue to monitor. no redness or swelling noted. No sign of infection HIV -restarted HIV meds, will follow Cr - check viral load, CD4 Seizure disorder Last seizure was 1.5 years ago. 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
[2017-09-16 06:07] LABS: Anion Gap 7 mmol/L (10-20); BUN (Urea Nitrogen) 21 mg/dL (8.9-20.6); Calc. Creatinine Clearance 40 mL/min (70-130); Calcium 8.4 mg/dL (7.8-10.44); Carbon Dioxide 16 mmol/L (22-29); Chloride 124 mmol/L (98-107); Estimated GFR-MDRD 33; Glucose 97 mg/dL (70-105); Potassium 3.9 mmol/L (3.5-5.1); Sodium 143 mmol/L (136-145)
[2017-09-16] MEDS: Docusate Sodium 100 MG/10 ML UDCUP PER TUBE SCH (09:52)
[2017-09-16] MEDS: Heparin 5,000 UNITS/ML VIAL SC SCH ×3 (09:53→16:29)
[2017-09-16] MEDS: Sodium Bicarbonate Tab 325 MG TAB PER TUBE SCH (09:53)
[2017-09-16] MEDS: Multivitamin W/ Minerals 1 TAB PER TUBE SCH (09:54)
[2017-09-16] MEDS: Topiramate 25 MG TAB PER TUBE SCH (09:54)
[2017-09-16] MEDS: Potassium Chloride 20 MEQ TAB PO SCH (09:55)
[2017-09-16] MEDS: Lopinavir/Ritonavir 80 MG/20 MG per ML Oral Solution PER TUBE SCH (09:57)
[2017-09-16] MEDS: levETIRAcetam 500 mg/5 ml Oral Solution PER TUBE SCH (10:37)
--- NOTE | 2017-09-16 13:55 | ADD-PRG ---
ADDENDUM This is an addendum to the note of Dr. Isaias Rodriguez. SUBJECTIVE: Mr. Russell is lying in bed in no distress. His hemoglobin is 10.5, hematocrit is 31. OBJECTIVE: VITAL SIGNS: He is afebrile. His pulse rate is 50 and regular, respirations 18. His blood pressure is 90/60, which is near his baseline. We will obtain an EKG given his relatively low heart rate, but it likely represents asymptomatic sinu s bradycardia. Otherwise, he is ready for discharge later today.
--- NOTE | 2017-09-16 14:21 | DIS-2 ---
DATE OF ADMISSION: 09/13/2017 DATE OF DISCHARGE: 09/16/2017 RESIDENT: Isaias Rodriguez MD ADMITTING ATTENDING: Kevin Ryan M.D. DISCHARGE ATTENDING: Elmo Delgado M.D. CONSULTATIONS: Nephrology. PROCEDURES: None. PRIMARY DIAGNOSIS: Acute kidney injury secondary to dehydration. SECONDARY DIAGNOSES: Hypokalemia, constipation, rule out PEG tube infection, human immunodeficiency virus, seizure disorder, history of nocardia brain abscess. DISCHARGE MEDICATIONS: Tenofovir 300 mg b.i.d., DuoNebs p.r.n., lamivudine 7.5 mL b.i.d., Keppra 750 mg b.i.d., topiramate 50 mg b.i.d., sodium bicarbonate 650 mg daily, scopolamine 1.5 mg every 3 days, multivitamin, Kaletra 5 mL b.i.d. DISCHARGE MEDICATIONS: Changed tenofovir to b.i.d. from daily until GFR is greater than 50. HISTORY OF PRESENT ILLNESS AND HOSPITAL COURSE: A 42-year-old male with history of HIV, hepatitis B, seizure disorder and previous nocardia brain abscess presented due to "yellowish pus" that has been coming from the PEG tube insertion site. He recently had the PEG tube replaced on 08/29/2017 and mother was concerned for infection. Upon evaluation in the ED, the PEG tube did not appear infected, but it was noted that the patient had a creatinine of around 4. His baseline is around 1. On the date of discharge, the patient's pulse was noted to be in the 50 whereas it was in the 60s during the rest of the hospitalization. Also, his blood pressure was noted to be in the low 90s, whereas it was in the high 90s to low 100s previously. An EKG was completed which showed normal sinus rhythm. The patient is discharged with instructions for close followup with PCP. SUSIE was worked up. Differential included medication-induced SUSIE versus dehydration. The patient had an acute kidney injury 1 year ago with similar creatinine elevation secondary to dehydration from C. diff. The patient's Keppra dose was halved while in the hospital and Keppra level was checked and it was within normal limits. Tenofovir was renally dosed, so it was moved from once daily dosing to b.i.d. Patient was aggressively hydrated while in the hospital and the creatinine decreased from starting of 4.1 down to 2.59 on day of discharge. DISPOSITION: Stable. DISCHARGE INSTRUCTIONS: 1. Location: Home with home health. 2. Diet: Tube feeds. Resume home regimen. ACTIVITY: As tolerated. FOLLOWUP: Dr. Diego Briseno in 2 days. Please follow up on creatinine and adjust tenofovir dose accordingly based on glomerular filtration rate. if greater than 50 the tenofovir can be given once daily. Please follow up on bradycardia and blood pressure as well. MTDD
[2017-09-16 14:31] LABS: %CD4 (Helper/Inducer) 12.5 % (30.8-58.5); Absolute CD4 313 /uL (359-1519); Lymphocytes/Gated Cell Count 2.5 x10E3/uL (0.7-3.1); Total Lymphocyte 31 % (Not Estab.); WBC Total Count 7.8 x10E3/uL (3.4-10.8)
--- NOTE | 2017-09-16 15:24 | PRG ---
DATE OF SERVICE: 09/16/2017 SUBJECTIVE: Patient was seen and examined at bedside and overnight events noted. Patient denies any shortness of breath or chest pain or palpitation. No history of nausea or vomitin g or diarrhea or fever or chills or cramps. OBJECTIVE: GENERAL: This is a well-built male, in no apparent distress. VITAL SIGNS: Temperature 97.7, pulse 49, respiratory rate 18, blood pressure 98/63. HEENT: Atraumatic, normocephalic. Oral mucosa is moist NECK: Supple. CARDIOVASCULAR: S1 and S2 heard. Rate and rhythm regular. RESPIRATORY: Clear to auscultation. GASTROINTESTINAL: Abdomen is soft. MUSCULOSKELETAL: No tenderness. No edema. DERMATOLOGIC: No skin rash. NEUROLOGIC: Alert and awake and oriented X3, No focal neurologic deficits. Moving all the extremitie s. PSYCHIATRIC: Mood and affect normal. LABORATORY DATA: Creatinine is 2.5 from 3.1, potassium is 3.9, bicarbonate is 16. ASSESSMENT AND PLAN: 1. Acute kidney injury. Renal function is much better. 2. Hypokalemia. 3. Metabolic acidosis, stable. 4. Hypertension. 5. Renal function better. Avoid nephrotoxins.
[2017-09-16 16:14] VITALS: BP 110/64; TEMP 97.5
--- NOTE | 2017-09-16 20:42 | EKG ---
Test Reason : Blood Pressure : / mmHG Vent. Rate : 053 BPM Atrial Rate : 053 BPM P-R Int : 180 ms QRS Dur : 090 ms QT Int : 472 ms P-R-T Axes : 057 083 073 degrees QTc Int : 442 ms Sinus bradycardia Otherwise normal ECG When compared with ECG of 05-OCT-2016 15:07, No significant change was found Confirmed by BARRON FIGUEROA, SZulma ([id number]) on 09/16/2017 8:42:17 PM Referred By: JERMAINE Confirmed By:DR. Yane MART MD
[2017-09-17 13:17] LABS: LOG10 HIV-1 RNA 2.653 (.)
== END 2017-09-16 16:34 | disposition home health service (06) | DRG 683 ==
LOC: ERS 09:49 → 2NO 19:45 → T4-A 09-15 12:21
PROVIDERS: ADMIT Family Medicine; ATTEND Family Medicine
DX: N17.9 Acute kidney failure, unspecified (principal); B19.10 Unspecified viral hepatitis B without hepatic coma; J96.10 Chronic respiratory failure, unspecified whether with hypoxia or hypercapnia; E87.2 Acidosis; Z93.0 Tracheostomy status; G81.90 Hemiplegia, unspecified affecting unspecified side; R13.10 Dysphagia, unspecified; Z93.1 Gastrostomy status; Z21 Asymptomatic human immunodeficiency virus [HIV] infection status; G40.909 Epilepsy, unspecified, not intractable, without status epilepticus; Z87.891 Personal history of nicotine dependence; E87.6 Hypokalemia; E86.0 Dehydration; K59.00 Constipation, unspecified; D63.8 Anemia in other chronic diseases classified elsewhere; N18.9 Chronic kidney disease, unspecified; Z74.01 Bed confinement status
CPT/HCPCS: 36415; 36556; 71045; 74018; 74019; 74176; 80048; 80053; 80177; 81003; 81015; 82550; 82570; 83605; 83690; 83735; 83930; 83935; 84300; 85025; 85048; 86361; 87040; 87086; 87536; 90471; 90670; 90682; 93005; 93010; 94640; 96360; 96361; A4216; C9399; G0008; G0009; J1644; J7620; Q2036

== ENCOUNTER 2019-09-08 11:45 | Inpatient (IN) | payer OTHER ==
[2019-09-08 13:14] LABS: #Basophils 0.1 thou/uL (0.0-0.2); #Eosinphils 0.2 thou/uL (0.0-0.7); #Lymphocytes 3.3 thou/uL (1.20-3.40); #Monocytes 0.7 thou/uL (0.11-0.59); #Neutrophils 6.6 thou/uL (1.40-6.50); %Basophils 0.5 % (0.0-1.0); %Eosinophils 1.6 % (0.0-10.0); %Lymphocytes 30.3 % (21.0-51.0); %Monocytes 6.3 % (0.0-10.0); %Neutrophils 61.3 % (42.0-75.0); Hemoglobin 11.4 g/dL (14.0-18.0); Mean Corpuscular HGB CONC 34.2 g/dL (32.0-36.0); Mean Corpuscular Volume 99.5 fL (78.0-98.0); Mean Platelet Volume 6.9 fL (7.4-10.4); Platelet Count 248 thou/uL (130-400); RBC Distribution Width 12.9 % (11.5-14.5); Red Blood Cell (RBC) Count 3.36 mill/uL (4.70-6.10); White Blood Cell (WBC) Count 10.8 thou/uL (4.8-10.8)
--- NOTE | 2019-09-08 13:42 | RAD ---
PORTABLE CHEST 1 VIEW: DATE: 09/08/2019. TIME: 12:35 PM. HISTORY: Mucus from tracheostomy tube. FINDINGS: Comparison is made with the exam of 09/13/2017. Tracheostomy tube remains in place. The aorta is tortuous. No lobar consolidation, pneumothoraces, or pleural effusions are seen. IMPRESSION: No acute process. POS: [facility]
[2019-09-08 13:56] LABS: ALT (SGPT) 41 U/L (8-55); AST (SGOT) 37 U/L (5-34); Albumin 3.8 g/dL (3.5-5.0); Alkaline Phosphatase 284 U/L (40-110); Anion Gap 15 mmol/L (10-20); BUN (Urea Nitrogen) 96 mg/dL (8.9-20.6); Bilirubin, Total 0.3 mg/dL (0.2-1.2); Calc. Creatinine Clearance 0 mL/min (70-130); Carbon Dioxide 28 mmol/L (22-29); Chloride 91 mmol/L (98-107); Estimated GFR-MDRD 10; Globulin 6.3 g/dL (2.4-3.5); Glucose 96 mg/dL (70-105); Lipase 121 U/L (8-78); Protein, Total 10.1 g/dL (6.0-8.3); Sodium 131 mmol/L (136-145)
[2019-09-08 14:06] LABS: Calcium 16.9 mg/dL (7.8-10.44)
--- NOTE | 2019-09-08 15:54 | PDOC.FPRHP ---
- Allergies/Adverse Reactions Allergies Allergy/AdvReac Type Severity Reaction Status Date / Time No Known Allergies Allergy Verified 09/13/17 22:48 - Home Medications Medication Instructions Recorded Confirmed Type Topiramate 50 mg PER TUBE BID 05/01/16 09/13/17 History Scopolamine [Transderm Scop] 1.5 mg TOP Q3D patch 07/02/16 09/13/17 Rx Ipratropium/Albuterol Sulfate 3 ml NEB Q4H PRN 09/13/17 09/13/17 History [DuoNeb] Lopinavir/Ritonavir [Kaletra 80 5 ml PER TUBE BID 09/13/17 09/13/17 History mg-20 mg/ml Soln] Multivit,Tx with Iron,Minerals 1 tablet PER TUBE DAILY 09/13/17 09/13/17 History [Thera-M] Sodium Bicarbonate [Bicarbonate, 650 mg PER TUBE DAILY 09/13/17 09/13/17 History Sodium] Tenofovir DISOPROXIL FUMARATE 300 mg PER TUBE DAILY 09/13/17 09/13/17 History [Viread] lamiVUDine [Epivir Oral Solution] 7.5 ml PER TUBE BID 09/13/17 09/13/17 History levETIRAcetam [Levetiracetam] 7.5 ml PER TUBE BID 09/13/17 09/13/17 History Tenofovir DISOPROXIL FUMARATE 300 mg PER TUBE BID 60 Days #30 tab 09/16/17 Rx [Viread] - History PMHx: PSHx: FHx: Social: - Vital signs BP: [] HR: [] RR: [] Tmax: [] Pox: []% on [] Wt: [] FMR H&P: Results - Labs Result Diagrams: 09/08/19 12:58 09/08/19 15:46 Lab results: WBC 10.8 thou/uL (4.8-10.8) 09/08/19 12:58 Hgb 11.4 g/dL (14.0-18.0) L 09/08/19 12:58 Hct 33.4 % (42.0-52.0) L 09/08/19 12:58 MCV 99.5 fL (78.0-98.0) H 09/08/19 12:58 Plt Count 248 thou/uL (130-400) 09/08/19 12:58 Neutrophils % 61.3 % (42.0-75.0) 09/08/19 12:58 Sodium 131 mmol/L (136-145) L 09/08/19 12:58 Potassium 3.0 mmol/L (3.5-5.1) L 09/08/19 12:58 Chloride 91 mmol/L (98-107) L 09/08/19 12:58 Carbon Dioxide 28 mmol/L (22-29) 09/08/19 12:58 BUN 96 mg/dL (8.9-20.6) H 09/08/19 12:58 Creatinine 7.09 mg/dL (0.7-1.3) H 09/08/19 12:58 Glucose 96 mg/dL (70-105) 09/08/19 12:58 Lactic Acid 1.9 mmol/L (0.5-2.2) 09/08/19 12:58 Calcium 16.9 mg/dL (7.8-10.44) H* 09/08/19 12:58 Total Bilirubin 0.3 mg/dL (0.2-1.2) 09/08/19 12:58 AST 37 U/L (5-34) H 09/08/19 12:58 ALT 41 U/L (8-55) 09/08/19 12:58 Alkaline Phosphatase 284 U/L (40-110) H 09/08/19 12:58 Serum Total Protein 10.1 g/dL (6.0-8.3) H 09/08/19 12:58 Albumin 3.8 g/dL (3.5-5.0) 09/08/19 12:58 Lipase 121 U/L (8-78) H 09/08/19 12:58 FMR H&P: Upper Level - Pertinent findings PCP: Atul HPI: This is a 44 yo gentleman brought in by his mother for bleeding from his trach site. She states he has just not been acting himself for the last 2 days. States he had a bloody nose last night and had some blood coming up when he was sneezing. She denies fevers, chills, sweats or cough. She states peg feeds are going as per normal. No reflux, no bleeding from PEG. She denies blood in stool. She says he was discharged from [facility] after treatment for pneumonia about a month ago and thought he was doing fine since that time up until a day or two ago. He is following commands, mom says he can say a few words, but is just not quite himself. 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 REVIEW OF SYSTEMS: Gen: no fever, chills, or sweats Neuro: denies headache Eyes: no visual changes ENT: no hearing changes, no sore throat, no congestion Resp: see hpi Card: denies palpitations or chest pain GI: no N/V/D, no abdominal pain Skin: no rash, no erythema Vitals: 98/67, MAP: 77, Pulse: 69, Resp: 16, Temp: 98.0 O2 sat: 100 on (Room Air), PHYSICAL EXAMINATION: General: NAD, alert and oriented x3 HEENT: PERRLA, EOMI, normal sclera, oropharynx without erythema or exudate, dry oral mucosa, no oozing from trach site at time of exam Neck: Supple. Full ROM. Heart/Cardiovascular System: RRR, Cap refill < 3 seconds, no rub, no murmur Lungs/Respiratory System: CTA-B, no resp distress Abdomen/Gastro-Intestinal System: no abdominal tenderness, normal bowel sounds Extremities: Warm extremities. No cyanosis or edema Neuro: able to follow commands, quadriplegic Psychiatry: Awake, Alert Skin: No lesions, rashes, or ulcers Musculoskeletal: Full ROM A/P: # Acute Renal Failure, Hypercalcemic Crisis, Hypokalemia - Baseline Cr 1, Cr 7.09, Calcium 16.9, K 3.0 - Mother refused dialysis even acutely, understands that this may mean he could , she would like to talk with palliative care team - Dr. Salazar consulted appreciate recs - Calcitonin, fluid resuscitation, check PTH - Recheck Calcium in AM - Elevated BUN could contribute to bleeding # HIV - Check CD4, viral load, cont home meds - Will start unasyn, tracheitis is a possibility # Seizure disorder - Renally dose keppra at 500mg once daily for now # Palliative Care - Mother wants patient to be full code for now - Refuses even acute dialysis - Will consult palliative care team appreciate assistance - Patient may ultimately be candidate for hospice Fluids: NS 200 ml/hr Code: full PPx: SCD Dispo: inpatient, pending palliative discussions - Plan Date/Time: 09/08/19 [id number] I, [], have evaluated this patient and agree with findings/plan as outlined by international logistics coordinator resident. Pertinent changes/additions are listed here. Addendum - Attending - Attending Attestation Date/Time: 09/08/19 [id number] I personally evaluated the patient and discussed the management with Dr. Rodriguez. I agree with the History, Examination, Assessment and Plan documented above with any addition or exceptions noted below. Patient very well known to our service here with bloody mucous from tracheostomy , and labs showing acute renal failure and hypercalcemia. Patient will be aggressively fluid hydrated, Calcitonin admin, and nephrology consult. Will start empiric Unasyn for possible tracheitis, possible pulm consult if does not improve or worsens but currently no evidence of pulmonary disease. He does have HIV so will keep immunosuppression in mind.
[2019-09-08 16:09] LABS: ALT (SGPT) 40 U/L (8-55); AST (SGOT) 36 U/L (5-34); Albumin 3.8 g/dL (3.5-5.0); Alkaline Phosphatase 282 U/L (40-110); Anion Gap 16 mmol/L (10-20); BUN (Urea Nitrogen) 92 mg/dL (8.9-20.6); Bilirubin, Total 0.3 mg/dL (0.2-1.2); Calc. Creatinine Clearance 0 mL/min (70-130); Carbon Dioxide 26 mmol/L (22-29); Chloride 91 mmol/L (98-107); Estimated GFR-MDRD 10; Globulin 6.3 g/dL (2.4-3.5); Glucose 80 mg/dL (70-105); Potassium 3.1 mmol/L (3.5-5.1); Protein, Total 10.1 g/dL (6.0-8.3); Sodium 130 mmol/L (136-145)
[2019-09-08 16:14] LABS: Calcium 16.5 mg/dL (7.8-10.44)
[2019-09-08 16:15] LABS: Bacteria/HPF None Seen HPF (None Seen); Bilirubin Negative (Negative); Blood, Urine 2+ (Negative); Clarity Clear (Clear); Glucose, Urine (Dipstick) 50 mg/dL (Negative); Leukocyte 25 Leu/uL (Negative); Nitrite Negative (Negative); Protein, Urine (Dipstick) 100 mg/dL (Neg-Trace); Squamous Epithelial 0-3 HPF (0-3); Urobilinogen Normal mg/dL (Less than 2)
[2019-09-08] MEDS ORDERED: Pharmacy to Dose UNASYN IVPB PRN (16:26)
--- NOTE | 2019-09-08 17:50 | CON ---
DATE OF CONSULTATION: REASON FOR CONSULTATION: Acute kidney injury and hypercalcemia. HISTORY OF PRESENT ILLNESS: This is a very pleasant 44-year-old gentleman, who presented to the hospital for increasing mucus from trachea. The patient was noted to have a calcium of 16.9 and a creatinine of 7.3. The patient can give no further history. The mother denies having giving him any calcium supplementation. PAST MEDICAL HISTORY: Significant for HIV, history of quadriplegia, history of chronic tracheostomy, history of encephalopathy, feeding tube placement, and history of being bedbound. MEDICATIONS: Home medications list, reviewed. Hospital medications list, reviewed. ALLERGIES: REVIEWED. REVIEW OF SYSTEMS: Unobtainable. PHYSICAL EXAMINATION: GENERAL: The patient is resting. VITAL SIGNS: Afebrile, pulse 75, breathing at 16, blood pressure 104/69. HEENT: Head normocephalic and atraumatic. Eyes intact, no ulcers. Nose intact, no ulcers. Ears intact, no ulcers. NECK: Supple. No JVD. CHEST: Symmetrical and clear. CARDIOVASCULAR: Shows S1 and S2, no rub, no murmur. GASTROINTESTINAL: Abdomen is soft, bowel sounds positive. EXTREMITIES: Show no edema or ulcers. SKIN: Shows no rash or petechiae. MUSCULOSKELETAL: Shows no joint swelling or stiffness. GENITOURINARY: Shows no Funez or CVA tenderness. NEUROLOGIC: The patient is nonverbal and cannot move extremities. LABORATORY DATA: Show calcium 16.9, potassium is 3.1, creatinine 7.3. ASSESSMENT AND PLAN: 1. Acute kidney injury with chronic kidney disease, stage 5, most likely due to decreased effective arterial blood volume. I have discussed risks versus benefits of dialysis. The patient's mother declined after understanding all risks and benefits. 2. Hypercalcemia. Offered dialysis. Family has declined. The patient wants to be treated with medical therapy. 3. Hypokalemia. Recommend low-dose potassium replacement. 4. History of human immunodeficiency virus and hypercalcemia. We would recommend Infectious Disease consultation. 5. Overall prognosis is poor. I will sign off on this patient. Please reconsult as needed. Job ID: [id number]
--- NOTE | 2019-09-08 18:12 | PDOC.BPN ---
- Brief Progress Note will hold HAART medications for tonight and see how renal function is doing in AM Alicia renally dosed
[2019-09-08] MEDS ORDERED: Ondansetron PF 4 MG/2 ML Vial IVP PRN (22:32)
[2019-09-08] MEDS ORDERED: Acetaminophen 325 MG TAB PO PRN (22:32)
[2019-09-08] MEDS ORDERED: Ampicillin/Sulbactam 1.5 GM in Sodium Chloride 0.9% 100 ML IVPB SCH (22:32)
[2019-09-08] MEDS ORDERED: Melatonin 3 MG TAB PO SCH (23:00)
[2019-09-08] MEDS ORDERED: Melatonin 3 MG TAB PER TUBE SCH (23:30)
[2019-09-08] MEDS: Sodium Chloride 0.9% 1,000 ML IV SCH (23:34)
[2019-09-09] MEDS ORDERED: Lactated Ringer's 500 ML IV SCH (02:00)
[2019-09-09] MEDS ORDERED: Sodium Chloride 0.9% 1,000 ML IV SCH (02:15)
[2019-09-09 04:31] LABS: #Eosinphils 0.1 thou/uL (0.0-0.7); #Lymphocytes 1.8 thou/uL (1.20-3.40); #Monocytes 0.5 thou/uL (0.11-0.59); #Neutrophils 4.5 thou/uL (1.40-6.50); %Basophils 0.1 % (0.0-1.0); %Eosinophils 1.3 % (0.0-10.0); %Lymphocytes 26.4 % (21.0-51.0); %Monocytes 7.5 % (0.0-10.0); %Neutrophils 64.7 % (42.0-75.0); Hemoglobin 9.1 g/dL (14.0-18.0); Mean Corpuscular HGB CONC 34.8 g/dL (32.0-36.0); Mean Corpuscular Hemoglobin 34.7 pg (27.0-31.0); Mean Corpuscular Volume 99.7 fL (78.0-98.0); Mean Platelet Volume 7.3 fL (7.4-10.4); Platelet Count 198 thou/uL (130-400); Red Blood Cell (RBC) Count 2.62 mill/uL (4.70-6.10)
[2019-09-09 05:05] LABS: ALT (SGPT) 31 U/L (8-55); AST (SGOT) 31 U/L (5-34); Albumin 2.9 g/dL (3.5-5.0); Alkaline Phosphatase 206 U/L (40-110); Anion Gap 10 mmol/L (10-20); BUN (Urea Nitrogen) 81 mg/dL (8.9-20.6); Bilirubin, Total 0.3 mg/dL (0.2-1.2); Calc. Creatinine Clearance 15 mL/min (70-130); Calcium 13.9 mg/dL (7.8-10.44); Carbon Dioxide 23 mmol/L (22-29); Chloride 105 mmol/L (98-107); Estimated GFR-MDRD 12; Globulin 4.9 g/dL (2.4-3.5); Glucose 101 mg/dL (70-105); Potassium 3.3 mmol/L (3.5-5.1); Protein, Total 7.8 g/dL (6.0-8.3); Sodium 135 mmol/L (136-145)
[2019-09-09] MEDS: Calcitonin,Salmon,Synthetic 200 UNITS/ML MDV IM SCH ×2 (07:33→16:23)
[2019-09-09] MEDS: Scopolamine 1.5 mg/72 hour Patch TOP SCH (07:33)
[2019-09-09] MEDS: Ampicillin/Sulbactam 3 GM in Sodium Chloride 0.9% 100 ML IVPB SCH ×3 (07:33→16:59)
[2019-09-09] MEDS: Sodium Chloride 0.9% 1,000 ML IV SCH ×4 (07:34→22:56)
--- NOTE | 2019-09-09 07:57 | PDOC.FM ---
- Subjective Subjective: Doing well this morning, did have hypothermia to 94.6 overnight, placed on bear- hugger and responded. Mother at bedside. Initial discussion with Dr. Salazar and primary team was for no acute dialysis. This morning pt himself states he would like to pursue dialysis, at least acutely. They would however still like to talk to hospice to get information from them as well. Pt confirms full code status. - Objective MAR Reviewed: Yes Vital Signs & Weight: Vital Signs (12 hours) Temp Pulse Resp BP Pulse Ox 09/09/19 06:49 100.6 F H 09/09/19 06:43 95 09/09/19 06:29 70 20 95 09/09/19 03:20 93 16 85/50 L 97 09/09/19 02:57 97 09/09/19 01:32 96.4 F L 75 18 86/52 L 96 Weight Weight 68.039 kg Result Diagrams: 09/09/19 04:08 09/09/19 04:08 EKG Reviewed by me: Yes (tele: no acute events, NSR, 1st degree block) Phys Exam - Physical Examination Constitutional: NAD (resting comfortably, nonverbal can answer yes or no questions) HEENT: moist MMs trach in place Neck: supple Respiratory: no wheezing, no rales, no rhonchi course upper airway sounds BL Cardiovascular: RRR, no significant murmur, no rub Gastrointestinal: soft, non-tender, no distention, positive bowel sounds Musculoskeletal: no edema quadreplegic Dx/Plan (1) Hypercalcemia Code(s): E83.52 - HYPERCALCEMIA Status: Acute (2) SUSIE (acute kidney injury) Code(s): N17.9 - ACUTE KIDNEY FAILURE, UNSPECIFIED Status: Acute (3) Human immunodeficiency virus (HIV) seropositivity Code(s): Z21 - ASYMPTOMATIC HUMAN IMMUNODEFICIENCY VIRUS INFECTION STATUS Status: Chronic - Plan Plan: 44yo M with h/o HIV, Hep B, seizure disorder, 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 Salazar, nephro, consulted, spoke with family and offered dialysis, mother initialy decline dialysis. Pt himself now wanting dialysis, spoke with Dr. Salazar who will discuss with pt and family and begin dialysis. - Dr. Lacy consulted for trialysis cath placement - Given calcitonin, PTH low at 18.3 - Hypercalcemia likely 2/2 ESRD, consider PTHrP, Vit D 1-25 and Vit D 25 for further workup - Palliative care team consulted, apprec assistance - family would like to speak with hospice but currently confirmed full code status and pursuing treatment - will replace K as needed, check Mg #HIV - Currently holding HAART, will consider restarting this AM - Check CD4 and viral load - Possible tracheitis - will cont unasyn #Seizure disorder and quadriplegia - cont keppra, renally dosed at 500mg daily #Palliative care - Mother currently wants full code for now, declines even acute dialysis - Palliative care team consulted, apprec assistance - consider hospice Code: Full PCP: ANGELICA IVF: NS @ 200cc/hr Diet: NPO VTE: SCDs Dispo: Admitted for ESRD and hypercalcemia. Plan for dialysis today. Palliative consulted to assist with care goals. Addendum - Attending - Attending Attestation Date/Time: 09/09/19 2186 I personally evaluated the patient and discussed the management with Dr. Cantu. I agree with the History, Examination, Assessment and Plan documented above with any addition or exceptions noted below.
[2019-09-09] MEDS ORDERED: levETIRAcetam 500 mg/5 ml Oral Solution PER TUBE SCH (09:00)
[2019-09-09] MEDS ORDERED: FLU VACC QS2019-20(6MOS UP)/PF 60 MCG/0.5 ML SYRINGE IM ONE (09:00)
[2019-09-09] MEDS ORDERED: levETIRAcetam 500 MG TAB PO SCH (09:00)
--- NOTE | 2019-09-09 09:48 | PDOC.PALCO ---
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 Became totally dependent for all ADL secondary to quadraplegia, PEG for nutritional support and trach for maintenance of airway. Patient lives in a private home with his mother as primary caregiver. He has had frequent hospital stays. 2 days prior to recent admission patient was having a non specific change. He had bleeding from his trach site and was brought to the hospital for further evaluation. Admitted for renal failure and higher level of care. - Pertinent PMH HIV, craniotomy for nocardia, quadriplegic, PEG, Trach, Hep B, seizure - Social History Smoking Status: Former smoker Smoking: no tobacco exposure Alcohol Use: none Living Situation: with caregiver (who is his mother and KHADAR Guerrier), other - Medications MAR Reviewed: Yes - Allergies Allergies/Adverse Reactions: Allergies Allergy/AdvReac Type Severity Reaction Status Date / Time No Known Allergies Allergy Verified 09/13/17 22:48 - Subjective Awake, able to communicate with Plug to trach. Bedbound. ROS difficult secondary to limited ability to talk, utilized for conversation related to dialysis and resuscitation status - ROS Constitutional: alert ENT: alteration in dentition (secretions from trach) Cardiology: other (negative for chest pain) Genitourinary: other (negative for changes in urination) Neurological: other (negative for changes in confusion) - Objective Vital Signs: Vital Signs - Most Recent Temp Pulse Resp BP Pulse Ox 98.9 F 102 H 14 93/51 L 94 L 09/09/19 08:15 09/09/19 08:15 09/09/19 08:15 09/09/19 08:15 09/09/19 08:15 Palliative Performance Scale: 30 - Physical Exam Constitutional: ill appearing HEENT: moist MMs, sclera anicteric Deviation from normal: trach, secretions milky white Cardiovascular: RRR Gastrointestinal: soft, non-tender, incontinent Deviation from normal: PEG Musculoskeletal: edema present, diffuse muscle atrophy Deviation from normal: focal deficit, quadraplegic Skin: cap refill <2 seconds, normal turgor Psychiatric: A&O x 3, normal affect - Problem List (1) Palliative care encounter Code(s): Z51.5 - ENCOUNTER FOR PALLIATIVE CARE Current Visit: Yes Status: Acute (2) Physical deconditioning Code(s): R53.81 - OTHER MALAISE Current Visit: Yes Status: Acute (3) Acute kidney failure Current Visit: Yes Status: Acute (4) Hypercalcemia Code(s): E83.52 - HYPERCALCEMIA Current Visit: Yes Status: Acute (5) Seizure Code(s): R56.9 - UNSPECIFIED CONVULSIONS Current Visit: Yes Status: Acute (6) Acquired immune deficiency syndrome (AIDS) Code(s): B20 - HUMAN IMMUNODEFICIENCY VIRUS [HIV] DISEASE Current Visit: No Status: Chronic (7) Hemiplegia affecting left nondominant side Code(s): G81.94 - HEMIPLEGIA, UNSPECIFIED AFFECTING LEFT NONDOMINANT SIDE Current Visit: No Status: Chronic (8) Seizure disorder Code(s): G40.909 - EPILEPSY, UNSP, NOT INTRACTABLE, WITHOUT STATUS EPILEPTICUS Current Visit: No Status: Chronic (9) Type B viral hepatitis Code(s): B19.10 - UNSPECIFIED VIRAL HEPATITIS B WITHOUT HEPATIC COMA Current Visit: No Status: Chronic (10) history of nocardia abscess brain Current Visit: No Status: Chronic - Plan/Recommendations Plan: Trach dependent with PEG. Physical deconditioning. At time of initial visit patient non verbal secondary to Trach. Visited with mother at length in relation to disease processes and need to initiate dialysis. Mother and patient initially agree to temp dialysis cath, uncertain of alf. Appear to have difficulty grasping fully the alf commitment to dialysis. Mother is overwhelmed and states that she currently has difficulty caring for son and transportation. When Dr Lacy came to assess patient and place dialysis cath patient adamantly refused. Palliative Care followed up, mother placed plug on trach so Brett could communicate. He expressed he did not want dialysis and that he also wanted to be a DNAR. Completed paper work for DNAR and communicated with physicians involved. Spiritual care (Rocael) present and engaged with patient and mother. Discussion in relation to outcome with decision of no dialysis, introduced Hospice again. Will continue to follow and provide emotional support and therapeutic listening. [75] minutes spent on this encounter with >50% of the time in counseling and coordination of care. Thank you for this very appropriate consult.
[2019-09-09] MEDS: Famotidine/PF 20 mg/2ml Vial SLOW IVP SCH (10:27)
[2019-09-09 10:53] LABS: Prothrombin Time 13.6 SEC (12.0-14.7)
[2019-09-09 11:23] LABS: HBSAB Concentration 0.24 mIU/mL; Hep B Surf AB Non-Reactive (NonReactive); Hep C IgG Ab Non-Reactive (NonReactive)
[2019-09-09 11:23] LABS: Phosphorus 2.7 mg/dL (2.3-4.7)
[2019-09-09 12:17] LABS: HBSAg Index 7358.58 S/CO (0-0.99); Hep B Core Total Index 11.54 S/CO (0-0.79)
[2019-09-09 12:18] LABS: Hep B Core Total Ab Reactive (NonReactive); Hep B Surf Ag Reflx Confirmation S/CO (NonReactive)
--- NOTE | 2019-09-09 12:33 | PRG ---
DATE OF SERVICE: 09/09/2019 SUBJECTIVE: A 44-year-old male being seen for chronic kidney disease. The patient denies any nausea, vomiting, or chest pain. OBJECTIVE: GENERAL: The patient is awake and alert. VITAL SIGNS: Afebrile, pulse 75, breathing at 16, blood pressure 93/51. HEENT: Head normocephalic and atraumatic. Eyes intact, no ulcers. Nose intact, no ulcers. Ears intact, no ulcers. NECK: Supple. No JVD. CHEST: Symmetrical and clear. CARDIOVASCULAR: Shows S1 and S2, no rub, no murmur. GASTROINTESTINAL: Abdomen is soft, bowel sounds positive. EXTREMITIES: Show no edema or ulcers. SKIN: Shows no rash or petechiae. MUSCULOSKELETAL: Shows no joint swelling or stiffness. GENITOURINARY: Shows no Funez or CVA tenderness. NEUROLOGIC: Motor intact. Cranial nerves intact. LABORATORY DATA: Labs show hemoglobin 9.1. Potassium 3.3, creatinine 6.04, calcium 13.9. ASSESSMENT AND PLAN: 1. Acute kidney injury with chronic kidney disease stage 5 family has agreed for dialysis. We will plan dialysis. 2. Uremia. We will plan dialysis. 3. Hypercalcemia, improved. We will plan dialysis with 2.5 calcium bath. Recheck calcium. 4. Hyperparathyroidism is not present, and vitamin D levels . 5. Hypercalcemia. Plan dialysis. 6. Hypokalemia. Recommend 40 mEq of potassium. 7. Medication based on GFR appropriate. Job ID: [id number]
[2019-09-09 14:34] LABS: Band 9 % (5-11); Eosinophils 2 % (0-10); Lymphocytes 17 % (21-51); Monocytes 7 % (0-10); Reactive Lymphocytes 4 % (0-10)
[2019-09-09 14:35] LABS: Macrocytosis SLIGHT = 6-15 cells (100X) (0-5/hpf); Polychromasia SLIGHT = 2-3 cells (100X) (0-2/hpf)
[2019-09-09 14:37] LABS: Anisocytosis SLIGHT = 6-15 cells (100X) (0-5/hpf)
[2019-09-09 14:38] LABS: Platelet Morphology Comment Appears Adequate
--- NOTE | 2019-09-09 16:38 | CON ---
DATE OF CONSULTATION: Brett Russell has progressive chronic kidney disease and denies the need of dialysis access. I have been asked to see him regarding temporary dialysis access. The patient has not wanted dialysis in the past. He is a full code, HIV positive, nonambulatory. The patient with a permanent tracheostomy and a feeding tube. He is 44 years old. When I entered the room to place the dialysis femoral catheter to initiate dialysis, family had other questions. I then paused to talk to them. The patient stated he had changed his mind and he does not want dialysis. I have told the patient and his family that if he does not want dialysis, then DNR would be necessary and explained that in detail. After explaining this, the patient and family are agreeable to DNR status. At this point, I would not place a dialysis catheter. We will initiate DNR. I have called the palliative care team and employment case manager to initiate hospice care and DNR status and we will order DNR in the chart. Job ID: [id number]
[2019-09-09] MEDS: Topiramate 100 MG TAB PER TUBE SCH (22:56)
[2019-09-10] MEDS ORDERED: Lorazepam 2 MG/ML VIAL ONE ×2 (03:10→03:17)
[2019-09-10] MEDS ORDERED: levETIRAcetam In NaCl (Iso-Os) 1,000 MG in Premix Bag 1 BAG IVPB SCH (03:45)
--- NOTE | 2019-09-10 04:01 | PDOC.BPN ---
- Brief Progress Note Called by Drs. Hinkle and Liane to Brett's room. Patient is having status epilepticus. Ativan doses have been given but without cessation of seizure activity. They are also going to give keppra. Seizure activity continues. He is DNAR. However, his seizure activity requires higher level of nursing care, so we are moving to IMCU while seizure medication is judiciously given to try to avoid respiratory depression while achieving cessation of seizure activity. Prognosis is poor.
[2019-09-10 04:17] LABS: #Basophils 0.1 thou/uL (0.0-0.2); #Eosinphils 0.2 thou/uL (0.0-0.7); #Lymphocytes 4.9 thou/uL (1.20-3.40); #Monocytes 1.1 thou/uL (0.11-0.59); #Neutrophils 6.3 thou/uL (1.40-6.50); %Basophils 0.7 % (0.0-1.0); %Eosinophils 1.8 % (0.0-10.0); %Lymphocytes 38.9 % (21.0-51.0); %Monocytes 8.4 % (0.0-10.0); %Neutrophils 50.1 % (42.0-75.0); Hemoglobin 9.5 g/dL (14.0-18.0); Mean Corpuscular HGB CONC 33.2 g/dL (32.0-36.0); Platelet Count 231 thou/uL (130-400); RBC Distribution Width 13.1 % (11.5-14.5); White Blood Cell (WBC) Count 12.5 thou/uL (4.8-10.8)
[2019-09-10 04:39] LABS: ALT (SGPT) 29 U/L (8-55); AST (SGOT) 29 U/L (5-34); Alkaline Phosphatase 267 U/L (40-110); Anion Gap 12 mmol/L (10-20); BUN (Urea Nitrogen) 69 mg/dL (8.9-20.6); Bilirubin, Total 0.2 mg/dL (0.2-1.2); Calc. Creatinine Clearance 17 mL/min (70-130); Carbon Dioxide 22 mmol/L (22-29); Chloride 113 mmol/L (98-107); Estimated GFR-MDRD 14; Glucose 101 mg/dL (70-105); Potassium 3.4 mmol/L (3.5-5.1); Sodium 144 mmol/L (136-145)
[2019-09-10 04:42] LABS: Calcium 12.8 mg/dL (7.8-10.44)
[2019-09-10] MEDS: Sodium Chloride 0.9% 1,000 ML IV SCH ×4 (04:59→20:40)
[2019-09-10] MEDS: Ampicillin/Sulbactam 3 GM in Sodium Chloride 0.9% 100 ML IVPB SCH ×2 (05:10→16:05)
--- NOTE | 2019-09-10 06:28 | PDOC.FM ---
- Subjective Subjective: Overnight had seizure and status epilepticus, given Ativan and loading dose keppra with increase dose of keppra to 500 BID, total event lasted approx 15min , transferred to [facility]. This morning he is still lethargic and post-ictal however resting comfortably and no seizure-like activity. He does not open eyes and only withdrawals from pain. Spoke with mom and states she is overwhelmed with his new condition and events. He did decide yesterday to not pursue dialysis and with help of Palliative care team, goals of care transitioning to comfort and pt decided to change to DNR status. This morning mom states they are still considering hospice but need time to think and process. Told we are here for any questions. - Objective MAR Reviewed: Yes Vital Signs & Weight: Vital Signs (12 hours) Temp Pulse Resp BP Pulse Ox 09/10/19 04:25 95 09/10/19 04:00 97.4 F L 09/09/19 20:00 97.6 F 77 18 98/58 L 100 Weight Admit Weight 68.039 kg Weight 69.309 kg Most Recent Monitor Data Heart Rate from ECG 91 NIBP 106/70 NIBP BP-Mean 82 Respiration from ECG 28 SpO2 100 I&O: 09/08/19 09/09/19 09/10/19 06:59 06:59 06:59 Intake Total 4130 Balance 4130 Result Diagrams: 09/10/19 03:16 09/10/19 03:16 Phys Exam - Physical Examination Constitutional: NAD (resting comfortably, does not respond to sternal rub, only withdrawals from pain) HEENT: moist MMs trach in place, no gag with suctioning Neck: supple Respiratory: no wheezing, no rales, no rhonchi upper airway noise throughout Cardiovascular: RRR, no significant murmur, no rub Gastrointestinal: soft, no distention, positive bowel sounds Musculoskeletal: no edema quadraplegic Dx/Plan (1) Hypercalcemia Code(s): E83.52 - HYPERCALCEMIA Status: Acute (2) SUSIE (acute kidney injury) Code(s): N17.9 - ACUTE KIDNEY FAILURE, UNSPECIFIED Status: Acute (3) Human immunodeficiency virus (HIV) seropositivity Code(s): Z21 - ASYMPTOMATIC HUMAN IMMUNODEFICIENCY VIRUS INFECTION STATUS Status: Chronic (4) Seizure Code(s): R56.9 - UNSPECIFIED CONVULSIONS Status: Acute - Plan Plan: 44yo M with h/o HIV, Hep B, seizure disorder, 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 Salazar, nephro, consulted, spoke with family and offered dialysis, mother initially decline dialysis, pt and mother then decided to pursue temporary dialysis, but after further discuss with Dr. Lacy, primary team, and palliative care, pt and family declined dialysis and changed code status to DNR and would like to pursue comfort care, considering hospice - Given calcitonin initially, PTH low at 18.3, Vit D normal at 54.6 - Hypercalcemia likely 2/2 ESRD, consider PTHrP, Vit D 1-25 - Palliative care team consulted, apprec assistance - mother overwhelmed this morning, will allow time to process and told we are here to provide any information, spiritual care consulted; will consult hospice when mother ready #Status epilepticus, known seizure disorder - s/p 15min event, given ativan and keppra with increased daily dose - post ictal this AM - cont vimpat and keppra 500 BID, monitor status - in IMCU for close monitoring #Leukocytosis - WBC 12.5, likely 2/2 seizure, will monitor #HIV - Cont HAART, renally dosed - Check CD4 and viral load #Possible tracheitis - will cont unasyn (Day 3) #Palliative care - Apprec Palliative care team assistance - Changed to DNR/DNI yesterday - Spiritual care consulted - Mother considering hospice but states needs time to process, given support Code: DNR PCP: ANGELICA IVF: NS @ 150cc/hr Diet: NPO VTE: SCDs Dispo: Admitted for ESRD and hypercalcemia. Palliative consulted. Goals of care transitioning to comfort and changed to DNR. S/p status epilectipus, cont seizure medications and monitoring. Addendum - Attending - Attending Attestation Date/Time: 09/10/19 1037 I personally evaluated the patient and discussed the management with Dr. Cantu. I agree with the History, Examination, Assessment and Plan documented above with any addition or exceptions noted below.
[2019-09-10] MEDS: Lopinavir/Ritonavir 80 MG/20 MG per ML Oral Solution PER TUBE SCH (09:46)
[2019-09-10] MEDS: Famotidine/PF 20 mg/2ml Vial SLOW IVP SCH (09:46)
[2019-09-10] MEDS: Loratadine 10 MG TAB PER TUBE SCH (09:46)
[2019-09-10] MEDS ORDERED: Lorazepam 2 MG/ML VIAL SLOW IVP SCH (10:00)
[2019-09-10] MEDS: Lacosamide 50 mg Tablet PER TUBE SCH (10:15)
[2019-09-10] MEDS ORDERED: Calcitonin,Salmon,Synthetic 200 UNITS/ML MDV IM SCH ×2 (10:45)
[2019-09-10] MEDS ORDERED: Aspirin 81 mg Enteric Coated Tablet PO SCH (13:00)
[2019-09-10 13:13] LABS: Troponin I 0.031 ng/mL (< 0.028)
[2019-09-10 13:27] VITALS: BMI 22.5
--- NOTE | 2019-09-10 14:03 | PDOC.PALPN ---
Palliative Progress Note - Subjective Less responsive today. Seizure activity noted intermittently. Makes eye contact at time, not able to communicate today with trachplug secondary to increasing encelopathic state. - Objective Vital Signs: Vital Signs - Most Recent Temp Pulse Resp BP Pulse Ox 95.9 F L 102 H 22 H 113/64 96 09/10/19 12:00 09/10/19 03:10 09/10/19 03:10 09/10/19 03:10 09/10/19 08:00 - Physical Exam Constitutional: encephalitic, ill appearing, mild distress HEENT: moist MMs, sclera anicteric, poor dentition Deviation from normal: Strabismus Deviation from normal: trach/ intermittantly clear/milky secretions via trach Cardiovascular: RRR, diminished peripheral pulses Gastrointestinal: soft, non-tender, positive bowel sounds, incontinent Deviation from normal: PEG Genitourinary: incontinent Musculoskeletal: diffuse muscle atrophy Deviation from normal: focal deficit, quadriplegic Skin: no lesions, no rash Deviation from normal: encelopathic - Assessment (1) Acute kidney failure Current Visit: Yes Status: Acute (2) Hypercalcemia Code(s): E83.52 - HYPERCALCEMIA Current Visit: Yes Status: Acute (3) Seizure Code(s): R56.9 - UNSPECIFIED CONVULSIONS Current Visit: Yes Status: Acute (4) Aspiration pneumonia due to gastric secretions Code(s): J69.0 - PNEUMONITIS DUE TO INHALATION OF FOOD AND VOMIT Current Visit : No Status: Acute Qualifiers: Laterality: bilateral Lung location: unspecified part of lung Qualified Code(s): J69.0 - Pneumonitis due to inhalation of food and vomit (5) Acquired immune deficiency syndrome (AIDS) Code(s): B20 - HUMAN IMMUNODEFICIENCY VIRUS [HIV] DISEASE Current Visit: No Status: Chronic (6) Status post tracheostomy Code(s): Z93.0 - TRACHEOSTOMY STATUS Current Visit: No Status: Chronic - Plan Plan: 09/09/2019 patient elected to not pursue dialysis and transition to no resuscitation measures if indicated. He was transferred to [facility] last night for a higher level of care. Episodes of bradycardia with altered EKG, increasing confusion, facial tick/seizure activity today. Dr Cantu myself and RN Met with his mother Cee after she arrived to [facility] to discuss transition to hospice care for comfort measures. Dr Cantu reviewed current trajectory toward decline with multiple morbidities and absence of dialysis. Ramakrishna Ruiz mother understanding, tearful, however is in agreement to transition to hospice care. Choice letter, [facility] contacted to evaluate Ramakrishna Russell. Order placed and Ant Gonzales CM contacted. Father Gabo to bedside to offer spiritual care. Continued emotional support and therapeutic listening offered. [60] minutes spent on this encounter with >50% of the time in counseling and coordination of care. - ROS Non Response: due to mental status
--- NOTE | 2019-09-10 15:11 | PQF ---
DATE: 09-10-19 ATTN: DR. DANN PHELPS Please exercise your independent, professional judgment in responding to the clarification form. Clinical indicators are provided on the bottom of this form for your review Please check appropriate box(s): [ x ] Encephalopathy: Type: [ x] Acute [ ] Subacute [ ] Chronic Etiology: [ x] Metabolic [ ] Toxic [ ] Hypoxic [ ] Other (please specify) [ ] Transient Alteration of Awareness [ ] Other diagnosis [ ] Unable to determine In addition, please specify: Present on Admission (POA): [ x ] Yes [ ] No [ ] Unable to determine For continuity of documentation, please document condition throughout progress notes and discharge summary. Thank You. CLINICAL INDICATORS - SIGNS / SYMPTOMS / LABS / RESULTS AND LOCATION IN EMR: PN DR. DANN PHELPS 09-10-19: OVERNIGHT HAS SEIZURE AND STATUS EPILEPTICUS, STILL LETHARGIC AND POST-ICTAL CONSULT NOTE [facility] 09-10-19: LESS RESPONSIVE TODAY, INCREASING ENCEPHALOPATHIC STATE RISK FACTORS / RESULTS AND LOCATION IN EMR: PN DR. DANN PHELPS 09-10-19: OVERNIGHT HAS SEIZURE AND STATUS EPILEPTICUS, STILL LETHARGIC AND POST-ICTAL, PATIENT ELECTED NOT TO PURSUE DIALYSIS, TREATMENTS / RESULTS AND LOCATION IN EMR: CONSULT NOTE [facility] 09-10-19: PATIENT ELECTED NOT TO PURSUE DIALYSIS, TRANSFERRED LAST NIGHT FOR HIGHER LEVEL OF CARE. COMFORT MEASURES DISCUSSION MAR: 09-10-19: KEPPRA IV, 09-08-19: ZOSYN IV RT OXYGEN 09-09-19: TRACH COLLAR 6L/MIN (This form is maintained as a part of the permanent medical record) 2014 [employer] All Rights Reserved TAY [email or web address] Office: [phone] [facility]
[2019-09-10] MEDS ORDERED: DOLUTEGRAVIR SODIUM 50 MG PER TUBE SCH (15:15)
[2019-09-10] MEDS: DOLUTEGRAVIR SODIUM 50 MG PER TUBE SCH (15:24)
[2019-09-10] MEDS: Lorazepam 2 MG/ML VIAL SLOW IVP PRN (17:49)
--- NOTE | 2019-09-10 18:13 | PDOC.BPN ---
- Brief Progress Note Patient made it very clear to Primary team, Palliative and Surgeon that he did not want dialysis or resuscitation DNAR was documented very thorougly by Palliative team Patient continuing to have seizures this afternoon Added phenytoin Long discussion with family and palliative care team Mother not ready to transition to hospice but agrees that son did not want aggressive measures when he was able to speak for himself Mother is in agreement with current treatment plan at this time
[2019-09-10] MEDS: Topiramate 100 MG TAB PER TUBE SCH (20:40)
[2019-09-11] MEDS: Lorazepam 2 MG/ML VIAL SLOW IVP PRN ×4 (00:32→23:44)
[2019-09-11] MEDS: Ampicillin/Sulbactam 3 GM in Sodium Chloride 0.9% 100 ML IVPB SCH ×2 (04:15→17:02)
[2019-09-11 04:21] LABS: ALT (SGPT) 32 U/L (8-55); AST (SGOT) 38 U/L (5-34); Albumin 2.7 g/dL (3.5-5.0); Alkaline Phosphatase 244 U/L (40-110); Anion Gap 15 mmol/L (10-20); BUN (Urea Nitrogen) 60 mg/dL (8.9-20.6); Bilirubin, Total Less than 0.2 mg/dL (0.2-1.2); Calc. Creatinine Clearance 20 mL/min (70-130); Calcium 11.4 mg/dL (7.8-10.44); Carbon Dioxide 16 mmol/L (22-29); Chloride 117 mmol/L (98-107); Estimated GFR-MDRD 17; Globulin 4.7 g/dL (2.4-3.5); Glucose 111 mg/dL (70-105); Potassium 3.6 mmol/L (3.5-5.1); Protein, Total 7.4 g/dL (6.0-8.3); Sodium 144 mmol/L (136-145)
[2019-09-11 04:26] LABS: Band 1 % (5-11); Eosinophils 2 % (0-10); Lymphocytes 17 % (21-51); MDiff Complete? YES; Mean Corpuscular HGB CONC 33.3 g/dL (32.0-36.0); Mean Corpuscular Hemoglobin 33.8 pg (27.0-31.0); Mean Platelet Volume 7.1 fL (7.4-10.4); Monocytes 5 % (0-10); Neutrophil 74 % (42-75); Platelet Count 187 thou/uL (130-400); Platelet Morphology Comment Appears Adequate; RBC Distribution Width 13.3 % (11.5-14.5); Reactive Lymphocytes 1 % (0-10); Red Blood Cell (RBC) Count 2.67 mill/uL (4.70-6.10); White Blood Cell (WBC) Count 10.9 thou/uL (4.8-10.8)
[2019-09-11] MEDS: Sodium Chloride 0.9% 1,000 ML IV SCH ×3 (05:57→23:43)
--- NOTE | 2019-09-11 06:20 | PDOC.FM ---
- Subjective Subjective: See Palliative care and brief progress notes. Yesterday had long discussion at beside with mom, Palliative care and RN about current state of Brett's health and wishes he had expressed to team prior to his change in condition. Around lunch yesterday he began to have increased seizure activity as well as episodes of bradycardia into the 30s. Pt had expressed very adamently that he did not want dialysis and wanted to be DNR prior to this change on the day prior. After discussion with mom, decision was made to pursue hospice, [facility] was contacted. Overnight, pt has had some seizure-like activity but not requiring prn's and no other acute events. Nursing staff state no gag reflex with suctioning of trach. Mom states she is doing well. Pt's brother is driving into town this AM and they plan to have a family meeting regarding plan of care. - Objective MAR Reviewed: Yes Vital Signs & Weight: Vital Signs (12 hours) Temp Pulse Ox 09/11/19 03:51 96.4 F L 09/11/19 00:00 96.2 F L 09/10/19 20:00 96.1 F L 100 Weight Admit Weight 68.039 kg Weight 70.125 kg Most Recent Monitor Data Heart Rate from ECG 79 NIBP 102/71 NIBP BP-Mean 81 Respiration from ECG 12 SpO2 100 I&O: 09/09/19 09/10/19 09/11/19 06:59 06:59 06:59 Intake Total 4130 5673 Balance 4130 5673 Result Diagrams: 09/11/19 03:33 09/11/19 03:33 Phys Exam - Physical Examination Constitutional: NAD (resting comfortably at time of exam with no seizure activity at this time) HEENT: moist MMs trach in place, no gag reflex with suctioning Neck: supple Respiratory: no wheezing course upper airway sounds transmitted to lower Cardiovascular: RRR, no significant murmur, no rub Gastrointestinal: soft, no distention, positive bowel sounds Musculoskeletal: no edema quadreplegic Deviation from normal: withdrawal only to pain Dx/Plan (1) Hypercalcemia Code(s): E83.52 - HYPERCALCEMIA Status: Acute (2) SUSIE (acute kidney injury) Code(s): N17.9 - ACUTE KIDNEY FAILURE, UNSPECIFIED Status: Acute (3) Human immunodeficiency virus (HIV) seropositivity Code(s): Z21 - ASYMPTOMATIC HUMAN IMMUNODEFICIENCY VIRUS INFECTION STATUS Status: Chronic (4) Seizure Code(s): R56.9 - UNSPECIFIED CONVULSIONS Status: Acute - Plan Plan: 44yo M with h/o HIV, Hep B, seizure disorder, 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 #ARF, Hypercalcemia - Cr 1 -> 7.09 -> 6.04 -> 5.43-> 4.62 - Ca 16.9 -> 13.9 -> 12.8 -> 11.4 (corrected 12.4) - Dr. Salazar, nephro, consulted, spoke with family and offered dialysis, mother initially decline dialysis, pt and mother then decided to pursue temporary dialysis, but after further discuss with Dr. Lacy, primary team, and palliative care, pt and family declined dialysis and changed code status to DNR and would like to pursue comfort care. Discussions occurred on 09/08 when patient was able to fully make decisions and verbalize understanding with trach speaking valve - Given calcitonin initially, PTH low at 18.3, Vit D normal at 54.6. Hypercalcemia likely 2/2 ESRD, consider PTHrP, Vit D 1-25 if pursuing full treatment - Overnight on 09/08-09/09 pt had episode of status epilepticus, transferred to IMCU, throughout the day condition worsened with continuedseizures, and bradycardia episodes - Palliative care team consulted, apprec assistance - Long discussion with mom and PC team on 09/09, honoring pt wishes, plan to pursue hospice care. This morning mom states family is coming in town this morning to help with decision making. Will await family decision and cont to provide support #Status epilepticus, known seizure disorder - s/p 15min event, given ativan and keppra with increased daily dose on 09/09 - still minimally responsive this morning, added phenytoin yesterday - occasional, short seizure episodes overnight, none on exam this morning - cont vimpat and keppra 500 BID, monitor status - in IMCU for close monitoring #Acute metabolic encephalopathy - pt only withdrawal from pain - likely 2/2 ARF, hypercalcemia, uremia - cont to monitor #Bradycardia - occasional episodes, likely 2/2 metabolic derrangements - Trop 0.031 after event, likely elevated from ARF, EKG bradycaria - will monitor #Leukocytosis - WBC 12.5 ->10.9, likely 2/2 seizure, will monitor #HIV - Cont HAART, renally dosed - Check CD4 and viral load #Possible tracheitis - will cont unasyn (Day 3) #Palliative care - Apprec Palliative care team assistance - Changed to DNR/DNI per pt wishes - Spiritual care consulted - Family meeting today to decide on inpt vs outpt hospice Code: DNR PCP: ANGELICA IVF: NS @ 150cc/hr Diet: NPO VTE: SCDs Dispo: Admitted for ESRD and hypercalcemia. Palliative consulted. Goals of care transitioning to comfort and changed to DNR. S/p status epilectipus, cont seizure medications and monitoring.
[2019-09-11] MEDS: ENTECAVIR 0.05 MG/ML PER TUBE SCH (09:28)
[2019-09-11] MEDS: Loratadine 10 MG TAB PER TUBE SCH (09:28)
[2019-09-11] MEDS: DOLUTEGRAVIR SODIUM 50 MG PER TUBE SCH (09:28)
[2019-09-11] MEDS: Famotidine/PF 20 mg/2ml Vial SLOW IVP SCH (09:29)
[2019-09-11] MEDS: Lopinavir/Ritonavir 80 MG/20 MG per ML Oral Solution PER TUBE SCH (10:00)
[2019-09-11] MEDS: Lacosamide 50 mg Tablet PER TUBE SCH (10:01)
--- NOTE | 2019-09-11 12:54 | PRG ---
DATE OF SERVICE: 09/11/2019 Please see the note from Dr. Cantu, for which I agree. The patient was seen, evaluated, discussed, and examined with the residents by bedside. 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 Looking at the computer, it looks like the renal issues have been now for a couple of years or at least that they were present in 2018 as well. Mental status has been waxing and waning a couple of days ago. He was mentally with it and refused dialysis and also refused resuscitation, wanted to be DNR, and so appreciate Palliative Care's help. We are going to get a hospice consult. It sounds like we are debating inpatient versus outpatient hospice at this point in time. He has become more encephalopathic in the last 24 hours, sounds like he is having more seizures despite numerous seizure medicines and as needed benzodiazepines. We will continue obviously treating those as needed and with routine seizure medicines. Mother discussed the case with me in the room and she understands the plan and agrees with that. At this point in time, she stated she had no questions for us. Job ID: [id number]
[2019-09-11 15:13] LABS: %CD4 (Helper/Inducer) 12.8 % (30.8-58.5); Absolute CD4 307 /uL (359-1519); Lymphocytes/Gated Cell Count 2.4 x10E3/uL (0.7-3.1); Total Lymphocyte 28 % (Not Estab.); WBC Total Count 8.5 x10E3/uL (3.4-10.8)
[2019-09-11] MEDS: Topiramate 100 MG TAB PER TUBE SCH (20:48)
[2019-09-11] MEDS: Scopolamine 1.5 mg/72 hour Patch TOP SCH (20:49)
[2019-09-12] MEDS: Sodium Chloride 0.9% 1,000 ML IV SCH ×3 (03:27→16:30)
[2019-09-12] MEDS: Ampicillin/Sulbactam 3 GM in Sodium Chloride 0.9% 100 ML IVPB SCH ×2 (04:22→16:26)
[2019-09-12] MEDS: Lorazepam 2 MG/ML VIAL SLOW IVP PRN ×3 (04:44→17:10)
--- NOTE | 2019-09-12 06:02 | PDOC.FM ---
- Subjective Subjective: Stable this morning, no acute events overnight. Occasional seizure-like activity controlled with prn Ativan. Mom this morning states they are leaning towards outpt hospice, possible with [facility] but still needs to talk to family. Has specific questions regarding logistics of HH and hospice which we will defer to CM and Hospice reps to answer. Pt mentation unimproved per mom and nursing staff , occasionally opens eyes, does not tract, no gag reflex with suctioning. - Objective MAR Reviewed: Yes Vital Signs & Weight: Vital Signs (12 hours) Temp Pulse Ox 09/12/19 04:00 96.7 F L 09/11/19 23:54 97.5 F L 09/11/19 20:00 96.7 F L 100 Weight Admit Weight 68.039 kg Weight 70.125 kg Most Recent Monitor Data Heart Rate from ECG 81 NIBP 96/62 NIBP BP-Mean 73 Respiration from ECG 13 SpO2 100 I&O: 09/10/19 09/11/19 09/12/19 06:59 06:59 06:59 Intake Total 4130 5673 4121 Balance 4130 5673 4121 Result Diagrams: 09/11/19 03:33 09/11/19 03:33 Phys Exam - Physical Examination Constitutional: NAD (resting comfortably, withdrawls to pain. GCS of 7) HEENT: moist MMs trach in place, increased secretions Neck: supple Respiratory: no wheezing, no rales, no rhonchi upper airway sounds transmitted to lower Cardiovascular: RRR, no significant murmur, no rub Gastrointestinal: soft, no distention, positive bowel sounds Musculoskeletal: no edema quadraplegic Dx/Plan (1) Hypercalcemia Code(s): E83.52 - HYPERCALCEMIA Status: Acute (2) SUSIE (acute kidney injury) Code(s): N17.9 - ACUTE KIDNEY FAILURE, UNSPECIFIED Status: Acute (3) Human immunodeficiency virus (HIV) seropositivity Code(s): Z21 - ASYMPTOMATIC HUMAN IMMUNODEFICIENCY VIRUS INFECTION STATUS Status: Chronic (4) Seizure Code(s): R56.9 - UNSPECIFIED CONVULSIONS Status: Acute - Plan Plan: 44yo M with h/o HIV, Hep B, seizure disorder, 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 #ARF, Hypercalcemia - Cr 1 -> 7.09 -> 6.04 -> 5.43-> 4.62 - Ca 16.9 -> 13.9 -> 12.8 -> 11.4 (corrected 12.4) - Dr. Salazar, nephro, consulted, spoke with family and offered dialysis, mother initially decline dialysis, pt and mother then decided to pursue temporary dialysis, but after further discuss with Dr. Lacy, primary team, and palliative care, pt and mother(mPOA) declined dialysis and changed code status to DNR and would like to pursue comfort care. Discussions occurred on 09/08 when patient was able to fully make decisions and verbalize understanding with trach speaking valve - Given calcitonin initially, PTH low at 18.3, Vit D normal at 54.6. Hypercalcemia likely 2/2 ESRD, consider PTHrP, Vit D 1-25 if pursuing full treatment - Overnight on 09/08-09/09 pt had episode of status epilepticus, transferred to IMCU, throughout the day condition worsened with continued seizures, and bradycardia episodes. Seizure episodes more controlled overnight. - Palliative care team consulted, apprec assistance - Long discussion with mom and PC team on 09/09, honoring pt wishes, plan to pursue hospice care. This morning mom states family are most likely to pursue outpt hospice, wanting to talk to [facility] instead of [facility]. Has specific questions regarding logistics. Will await assistance. #Status epilepticus, known seizure disorder - s/p 15min event, given ativan and keppra with increased daily dose on 09/09 - still minimally responsive this morning, prn ativan - occasional, short seizure episodes overnight, none on exam this morning - cont vimpat and keppra 500 BID, monitor status - in IMCU for close monitoring #Acute metabolic encephalopathy - pt only withdrawal from pain, GCS 6-7 - likely 2/2 ARF, hypercalcemia, uremia, seizures - cont to monitor #Bradycardia - occasional episodes, likely 2/2 metabolic derrangements - Trop 0.031 after event, likely elevated from ARF, EKG bradycaria - will monitor #Leukocytosis - WBC 12.5 ->10.9, likely 2/2 seizure, will monitor #HIV - Cont HAART, renally dosed #Possible tracheitis - will cont unasyn (Day 4) #Palliative care - Apprec Palliative care team assistance - Changed to DNR/DNI per pt wishes - Spiritual care consulted - plan to pursue opt hospice, apprec CM and Palliative assistance Code: DNR PCP: ANGELICA IVF: NS @ 100cc/hr Diet: NPO - tube feeds VTE: SCDs Dispo: Admitted for ESRD and hypercalcemia. Palliative consulted. Goals of care transitioning to comfort and changed to DNR. Pursue opt hospice. S/p status epilectipus, cont seizure medications and monitoring.
[2019-09-12] MEDS: DOLUTEGRAVIR SODIUM 50 MG PER TUBE SCH (08:42)
[2019-09-12] MEDS: Famotidine/PF 20 mg/2ml Vial SLOW IVP SCH (08:43)
[2019-09-12] MEDS: Lacosamide 50 mg Tablet PER TUBE SCH (08:43)
[2019-09-12] MEDS: Loratadine 10 MG TAB PER TUBE SCH (08:43)
[2019-09-12] MEDS: Lopinavir/Ritonavir 80 MG/20 MG per ML Oral Solution PER TUBE SCH (09:11)
--- NOTE | 2019-09-12 10:55 | PRG ---
DATE OF SERVICE: 09/12/2019 Please see note [address] Tom Cantu for which I agree. The patient was seen, evaluated, discussed, and examined with residents by bedside. Unfortunately, no real improvement in mental state. He is still having seizures, but sounds like less frequent and less active, but he is not really responding to his mother or anyone else at this point time. He is able to open his eyes often with a dysconjugate gaze. It is a real worst situation, where the family is discussing and deciding either inpatient or outpatient hospice. Discussed this with the mom in the room and she agrees that is the plan and she is "taking one day at a time," and it sounds like she understands the plan and wants to proceed with the plan. So, at this point in time, the patient is do not resuscitate/do not intubate, and we are giving him palliative measures to try to prevent seizures and to keep him comfortable, but mother understands this is keeping with the patient's wishes when he was cognizant and conscious and discussed with some of the previous physicians. We will honor wishes by proceeding with hospice, end of life care. Job ID: [id number]
[2019-09-12] MEDS: Topiramate 100 MG TAB PER TUBE SCH (21:09)
[2019-09-13] MEDS: Sodium Chloride 0.9% 1,000 ML IV SCH (00:16)
[2019-09-13] MEDS: Lorazepam 2 MG/ML VIAL SLOW IVP PRN ×3 (03:15→22:42)
[2019-09-13] MEDS: Ampicillin/Sulbactam 3 GM in Sodium Chloride 0.9% 100 ML IVPB SCH ×2 (05:14→16:51)
--- NOTE | 2019-09-13 06:02 | PDOC.FM ---
- Subjective Subjective: Stable this morning, no change in mentation. Occasional breakthrough seizures, treated with prn ativan. No acute events overnight. Mom at bedside, states plan to speak with Case management, HH, and hospice today so that we can get the process started to get them home with hospice today vs tomorrow. Mom eager to get him home to be around family. - Objective MAR Reviewed: Yes Vital Signs & Weight: Vital Signs (12 hours) Temp Pulse Resp BP Pulse Ox 09/13/19 04:00 97.6 F 88 16 108/75 95 09/13/19 03:28 97.6 F 09/13/19 00:00 97.4 F L 87 15 105/78 100 09/12/19 23:28 97.4 F L 09/12/19 20:00 100 09/12/19 19:43 97.0 F L Weight Admit Weight 68.039 kg Weight 70.125 kg Most Recent Monitor Data Heart Rate from ECG 91 NIBP 101/71 NIBP BP-Mean 81 Respiration from ECG 16 SpO2 99 I&O: 09/11/19 09/12/19 09/13/19 06:59 06:59 06:59 Intake Total 5673 6352 3074 Balance 5673 6352 3074 Result Diagrams: 09/11/19 03:33 09/11/19 03:33 Phys Exam - Physical Examination Constitutional: NAD (resting comfortably, occasional facial twitch, withdrawals from pain, does not track) HEENT: moist MMs trach in place Neck: supple Respiratory: no wheezing trach upper airway noise, good aeration Cardiovascular: RRR, no significant murmur, no rub Gastrointestinal: soft, no distention, positive bowel sounds mild hand and foot, nonpitting edema quadreplegic, occasional facial twitching seizure-like activity Dx/Plan (1) Hypercalcemia Code(s): E83.52 - HYPERCALCEMIA Status: Acute (2) SUSIE (acute kidney injury) Code(s): N17.9 - ACUTE KIDNEY FAILURE, UNSPECIFIED Status: Acute (3) Human immunodeficiency virus (HIV) seropositivity Code(s): Z21 - ASYMPTOMATIC HUMAN IMMUNODEFICIENCY VIRUS INFECTION STATUS Status: Chronic (4) Seizure Code(s): R56.9 - UNSPECIFIED CONVULSIONS Status: Acute - Plan Plan: 44yo M with h/o HIV, Hep B, seizure disorder, 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 #ARF, Hypercalcemia - Cr 1 -> 7.09 -> 6.04 -> 5.43-> 4.62 - Ca 16.9 -> 13.9 -> 12.8 -> 11.4 (corrected 12.4) - Dr. Salazar, nephro, consulted, spoke with family and offered dialysis, mother initially decline dialysis, pt and mother then decided to pursue temporary dialysis, but after further discussion with Dr. Lacy, primary team, and palliative care, pt and mother(mPOA) declined dialysis and changed code status to DNR and would like to pursue comfort care. Discussions occurred on 09/08 when patient was able to fully make decisions and verbalize understanding with trach speaking valve - Given calcitonin initially, PTH low at 18.3, Vit D normal at 54.6. Hypercalcemia likely 2/2 ESRD, consider PTHrP, Vit D 1-25 if pursuing full treatment - Overnight on 09/08-09/09 pt had episode of status epilepticus, transferred to IMCU, throughout the day condition worsened with continued seizures, and bradycardia episodes. Seizure episodes more controlled overnight with occasional breakthrough treated with prn Ativan - Palliative care team consulted, apprec assistance - Long discussion with mom and PC team on 09/09, honoring pt wishes, plan to pursue hospice care. This morning, mom is eager to transition to home care and plans to speak with HH and Hospice as well as CM this morning to begin arrangements, provided support and will assist. - On IVF, however pt appears volume overloaded this AM with BL hand and feet swelling, getting feeds per tube, will d/c IVF this AM #Status epilepticus, resolved, known seizure disorder - s/p 15min event, given ativan and keppra with increased daily dose on 09/09 - still minimally responsive this morning, prn ativan - occasional, short seizure episodes overnight - cont vimpat and keppra 500 BID, monitor status - in IMCU for close monitoring #Acute metabolic encephalopathy - pt only withdrawal from pain, stable - likely 2/2 ARF, hypercalcemia, uremia, seizures - cont to monitor #Bradycardia - occasional episodes, likely 2/2 metabolic derrangements - Trop 0.031 after event, likely elevated from ARF, EKG bradycardia - will monitor #HIV - Cont HAART, renally dosed #Possible tracheitis - Low suspicion, will cont unasyn (Day 5) #Palliative care - Apprec Palliative care team assistance - Changed to DNR/DNI per pt wishes - Spiritual care consulted - plan to pursue opt hospice, apprec CM and Palliative assistance Code: DNR PCP: ANGELICA IVF: SL Diet: NPO - tube feeds VTE: SCDs Dispo: Admitted for ESRD and hypercalcemia. Palliative consulted. Goals of care transitioning to comfort and changed to DNR. Pursue opt hospice. S/p status epilectipus, cont seizure medications and monitoring. Addendum - Attending - Attending Attestation Date/Time: 09/13/19 1150 I personally evaluated the patient and discussed the management with Dr. Cantu. I agree with the History, Examination, Assessment and Plan documented above with any addition or exceptions noted below.
[2019-09-13] MEDS: Loratadine 10 MG TAB PER TUBE SCH (08:11)
[2019-09-13] MEDS: Famotidine/PF 20 mg/2ml Vial SLOW IVP SCH (08:11)
[2019-09-13] MEDS: DOLUTEGRAVIR SODIUM 50 MG PER TUBE SCH (08:12)
[2019-09-13] MEDS ORDERED: levETIRAcetam 500 MG TAB PER TUBE SCH (09:00)
[2019-09-13] MEDS: Lacosamide 50 mg Tablet PER TUBE SCH (09:21)
[2019-09-13] MEDS: Lopinavir/Ritonavir 80 MG/20 MG per ML Oral Solution PER TUBE SCH (09:21)
--- NOTE | 2019-09-13 16:42 | PDOC.PALPN ---
Palliative Progress Note - Subjective Visited patient on two separate occasions today. Initial visit family member at bedside, and mother was running errands. Second visit mother was at bedside with Brett. She continue to hope for recovery, fatigued. Brett has continued to have seizure activity through the day, no purposeful eye contact during my assessment. Head phones on playing his favorite music. - Objective Vital Signs: Vital Signs - Most Recent Temp Pulse Resp BP Pulse Ox 97.3 F L 93 17 108/75 96 09/13/19 15:26 09/13/19 06:48 09/13/19 06:48 09/13/19 04:00 09/13/19 11:03 - Physical Exam Constitutional: encephalitic, ill appearing, mild distress HEENT: EOMI, moist MMs, sclera anicteric Respiratory: no wheezing Deviation from normal: mucous from trach, Cardiovascular: RRR Gastrointestinal: non-tender, positive bowel sounds, incontinent Musculoskeletal: no cyanosis, no clubbing, diffuse muscle atrophy Deviation from normal: quadraplegic Deviation from normal: focal deficits Skin: cap refill <2 seconds, no rash Deviation from normal: encephalopathic - Assessment (1) Palliative care encounter Code(s): Z51.5 - ENCOUNTER FOR PALLIATIVE CARE Current Visit: Yes Status: Acute (2) Physical deconditioning Code(s): R53.81 - OTHER MALAISE Current Visit: Yes Status: Acute (3) Acute kidney failure Current Visit: Yes Status: Acute (4) Hypercalcemia Code(s): E83.52 - HYPERCALCEMIA Current Visit: Yes Status: Acute (5) Seizure Code(s): R56.9 - UNSPECIFIED CONVULSIONS Current Visit: Yes Status: Acute (6) Acquired immune deficiency syndrome (AIDS) Code(s): B20 - HUMAN IMMUNODEFICIENCY VIRUS [HIV] DISEASE Current Visit: No Status: Chronic (7) Hemiplegia affecting left nondominant side Code(s): G81.94 - HEMIPLEGIA, UNSPECIFIED AFFECTING LEFT NONDOMINANT SIDE Current Visit: No Status: Chronic (8) Seizure disorder Code(s): G40.909 - EPILEPSY, UNSP, NOT INTRACTABLE, WITHOUT STATUS EPILEPTICUS Current Visit: No Status: Chronic (9) Type B viral hepatitis Code(s): B19.10 - UNSPECIFIED VIRAL HEPATITIS B WITHOUT HEPATIC COMA Current Visit: No Status: Chronic (10) history of nocardia abscess brain Current Visit: No Status: Chronic - Plan Plan: Continued supportive care, therapeutic listening. Mother continues to hope for full recovery. Brett continues with decline and poor hope of recovery to his baseline on admission. Spiritual Care, Rocael, involved and has good rapport with Ms Ferro. Ms Ferro continues to not wish to sign OOHDNAR, A [facility] registrar followed up. [facility] met with mother to transition home with hospice, mother reluctant and expressed to Hospice she is not certain if she wants to transition home with hospice or home health. Dr Cantu notified of mothers transition of wanting Hospice to possible seeking home health. [30] minutes spent on this encounter with >50% of the time in counseling and coordination of care. - ROS Non Response: due to mental status
[2019-09-13] MEDS: levETIRAcetam 500 mg/5 ml Oral Solution PER TUBE SCH (20:56)
[2019-09-13] MEDS: Topiramate 100 MG TAB PER TUBE SCH (20:57)
[2019-09-13] MEDS ORDERED: levETIRAcetam 100 mg/ml Oral Solution PO SCH (21:00)
[2019-09-14 01:00] VITALS: BP 92/60
[2019-09-14] MEDS: Lorazepam 2 MG/ML VIAL SLOW IVP PRN ×3 (05:18→14:13)
[2019-09-14] MEDS: Ampicillin/Sulbactam 3 GM in Sodium Chloride 0.9% 100 ML IVPB SCH (05:18)
--- NOTE | 2019-09-14 06:19 | PDOC.FM ---
- Subjective Subjective: Overnight pt stable. Decreased breakthrough seizures with increase in Keppra dose, required ativan x2 overnight. Palliative care, spiritual care, and CM spoke with pt's mother yesterday. Has decided to use [facility] and go home with home hospice. She is very eager to be discharged and get him home to be around family and friends. No concerns expressed for this morning. Pt himself with non purposeful eye movement, clear drainage from trach collar. Withdrawals to pain. - Objective MAR Reviewed: Yes Vital Signs & Weight: Vital Signs (12 hours) Temp Pulse Resp BP Pulse Ox 09/14/19 04:00 97.6 F 104 H 09/14/19 00:00 97.6 F 81 20 92/60 94 L 09/13/19 20:00 97.4 F L 87 20 91/66 100 Weight Admit Weight 68.039 kg Weight 70.125 kg Most Recent Monitor Data Heart Rate from ECG 104 NIBP 110/68 NIBP BP-Mean 82 Respiration from ECG 12 SpO2 99 I&O: 09/12/19 09/13/19 09/14/19 06:59 06:59 06:59 Intake Total 6352 4714 1850 Output Total 0 Balance 6352 4714 1850 Result Diagrams: 09/11/19 03:33 09/11/19 03:33 Phys Exam - Physical Examination Constitutional: NAD (non purposeful eye movement, withdrawls to pain) HEENT: moist MMs trach in place with clear drainage Neck: supple Respiratory: no wheezing upper airway rounds, mild rales from increased secretions Cardiovascular: RRR, no significant murmur, no rub Gastrointestinal: soft, no distention, positive bowel sounds Musculoskeletal: no edema quadraplegic Dx/Plan (1) Hypercalcemia Code(s): E83.52 - HYPERCALCEMIA Status: Acute (2) SUSIE (acute kidney injury) Code(s): N17.9 - ACUTE KIDNEY FAILURE, UNSPECIFIED Status: Acute (3) Human immunodeficiency virus (HIV) seropositivity Code(s): Z21 - ASYMPTOMATIC HUMAN IMMUNODEFICIENCY VIRUS INFECTION STATUS Status: Chronic (4) Seizure Code(s): R56.9 - UNSPECIFIED CONVULSIONS Status: Acute - Plan Plan: 44yo M with h/o HIV, Hep B, seizure disorder, 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 #ARF, Hypercalcemia - Cr 1 -> 7.09 -> 6.04 -> 5.43-> 4.62 - Ca 16.9 -> 13.9 -> 12.8 -> 11.4 (corrected 12.4) - Dr. Salazar, nephro, consulted, spoke with family and offered dialysis, mother initially decline dialysis, pt and mother then decided to pursue temporary dialysis, but after further discussion with Dr. Lacy, primary team, and palliative care, pt and mother(mPOA) declined dialysis and changed code status to DNR and would like to pursue comfort care. Discussions occurred on 09/08 when patient was able to fully make decisions and verbalize understanding with trach speaking valve and express his personal wishes. - Given calcitonin initially, PTH low at 18.3, Vit D normal at 54.6. Hypercalcemia likely 2/2 ESRD, consider PTHrP, Vit D 1-25 if pursuing full treatment - Overnight on 09/08-09/09 pt had episode of status epilepticus, transferred to IMCU, throughout the day condition worsened with continued seizures, and bradycardia episodes. Keppra dose incrased. Seizure episodes more controlled overnight with occasional breakthrough treated with prn Ativan - Palliative care team consulted, apprec assistance - Long discussion with mom and PC team on 09/09, honoring pt wishes, plan to pursue hospice care. This morning, mom is eager for discharge home. States she plants to use [facility], awaiting arrangements and plan to discharge as home as soon as arranged. #Status epilepticus, resolved, known seizure disorder - s/p 15min event, given ativan and keppra with increased daily dose on 09/09 - still minimally responsive this morning, prn ativan - occasional, short seizure episodes overnight - cont vimpat. Increased keppra to 750mg BID with improvement of seizure control - in IMCU for close monitoring #Acute metabolic encephalopathy - pt only withdrawal from pain, stable - likely 2/2 ARF, hypercalcemia, uremia, seizures - cont to monitor #Bradycardia - occasional episodes, likely 2/2 metabolic derrangements - Trop 0.031 after event, likely elevated from ARF, EKG bradycardia - will monitor #HIV - Cont HAART, renally dosed #Possible tracheitis - Low suspicion, Unasyn Day 6 #Palliative care - Apprec Palliative care team assistance - Changed to DNR/DNI per pt wishes - Spiritual care consulted - plan to pursue opt hospice, apprec CM and Palliative assistance Code: DNR PCP: ANGELICA IVF: SL Diet: NPO - tube feeds VTE: SCDs Dispo: Admitted for ESRD and hypercalcemia. Palliative consulted. Goals of care transitioning to comfort and changed to DNR. Pursue opt hospice. S/p status epilectipus, cont seizure medications and monitoring. Discharge to [facility] as soon as arranged. Addendum - Attending - Attending Attestation Date/Time: 09/14/19 1100 I personally evaluated the patient and discussed the management with Dr. Cantu. I agree with the History, Examination, Assessment and Plan documented above with any addition or exceptions noted below.
[2019-09-14 07:38] VITALS: TEMP 98.5
[2019-09-14] MEDS: Famotidine/PF 20 mg/2ml Vial SLOW IVP SCH (10:09)
[2019-09-14] MEDS: Loratadine 10 MG TAB PER TUBE SCH (10:09)
[2019-09-14] MEDS: Lacosamide 50 mg Tablet PER TUBE SCH (10:14)
[2019-09-14] MEDS: DOLUTEGRAVIR SODIUM 50 MG PER TUBE SCH (10:14)
[2019-09-14] MEDS: levETIRAcetam 500 mg/5 ml Oral Solution PER TUBE SCH (10:15)
[2019-09-14] MEDS: Lopinavir/Ritonavir 80 MG/20 MG per ML Oral Solution PER TUBE SCH (10:15)
[2019-09-14] MEDS: ENTECAVIR 0.05 MG/ML PER TUBE SCH (10:16)
--- NOTE | 2019-09-14 11:19 | PQF ---
DATE: 09-14-19 ATTN: DR. DANN PHELPS Please exercise your independent, professional judgment in responding to the clarification form. Clinical indicators are provided on the bottom of this form for your review Please check appropriate box(s): [ x ] Hyponatremia [ ] Insignificant Lab Values [ ] Other diagnosis [ ] Unable to determine In addition, please specify: Present on Admission (POA): [ x] Yes [ ] No [ ] Unable to determine For continuity of documentation, please document condition throughout progress notes and discharge summary. Thank You. CLINICAL INDICATORS - SIGNS / SYMPTOMS/ LABS are present in the medical record: SODIUM: 09-08-19: 131 09-08-19: 130 09-09-19: 135 RISK FACTORS: H&P: 09-08-19: ACUTE RENAL FAILURE, HYPERCALCEMIC CRISIS, HYPOKALEMIA, SEIZURE DISORDER TREATMENT: H&P: 09-08-19: NS IVF SERIES OF LABS 09-08-19 THROUGH 09-11-19 (This form is maintained as a part of the permanent medical record) 2014 [employer] All Rights Reserved TAY [email or web address] Office: [phone] [facility]ITALGerman
--- NOTE | 2019-09-14 14:15 | PQF ---
DATE: 09-14-19 ATTN: DR. PING BOLANOS Please exercise your independent, professional judgment in responding to the clarification form. Clinical indicators are provided on the bottom of this form for your review Please check appropriate box(s) to clarify if the following diagnosis has been ruled in or ruled out: PNEUMONIA [ ] Ruled in diagnosis [ ] Continue to treat [ ] Resolved [ ] Ruled out diagnosis [ ] Other diagnosis [ ] Unable to determine In addition, please specify: Present on Admission (POA): [ ] Yes [ ] No [ ] Unable to determine For continuity of documentation, please document condition throughout progress notes and discharge summary. Thank You. CLINICAL INDICATORS - SIGNS / SYMPTOMS / LABS / RESULTS AND LOCATION IN MR: ER DX 09-10-19: NEUTROPENIC FEVER, HEMOPTYSIS, INTRACTABLE NAUSEA AND VOMITING , L INGUINAL HERNIA, PNEUMONIA H&P 09-10-19: NEUTROPENIC FEVER, PLEURAL EFFUSION, TRACE HEMOPTYSIS, LARYNGEAL MASS WBC: 09-10-19: 0.9 09-12-19: 4.1 09-13-19: 9.7 RISK FACTORS / RESULTS AND LOCATION IN MR: H&P 09-10-19: FEVER OF 100.9, SECRETIONS IN THE TRACH, NEUTROPENIC FEVER, PLEURAL EFFUSIONS, TRACE HEMOPTYSIS TREATMENTS / RESULTS AND LOCATION IN MR: ER DX 09-10-19: VANCOMYCIN IV , CEFEPIME IV, NS IVF PULMONARY CONSULT 09-11-19 (This form is maintained as a part of the permanent medical record) 2014 [employer] All Rights Reserved TAY [email or web address] Office: [phone] NEW
--- NOTE | 2019-09-15 13:42 | DIS ---
DATE OF ADMISSION: 09/08/2019 DATE OF DISCHARGE: 09/14/2019 DISCHARGE ATTENDING: Dr. Fernando Truong. CONSULTS: 1. General surgery, Dr. Lacy. 2. Nephrology, Dr. Jerez. 3. Palliative Care. 4. [facility]. PROCEDURES: 1. Chest x-ray on 09/08/2019 demonstrating no acute cardiopulmonary process. 2. Kriss buitrago called on 09/09 for status epilepticus. PRIMARY DIAGNOSES: 1. Acute renal failure and hypercalcemia. 2. Status epilepticus, resolved, secondary to known seizure disorder. 3. Acute metabolic encephalopathy. SECONDARY DIAGNOSES: 1. Bradycardia episodes. 2. HIV. DISCHARGE MEDICATIONS: 1. Topiramate 100 mg per tube at bedtime. 2. Multivitamin one tablet per tube daily. 3. Lamivudine 10 mg/ml solution 5 mL per tube daily. 4. Protonix 40 mg per tube daily. 5. Vimpat 100 mg per tube b.i.d. 6. Zyrtec 10 mg per tube daily. 7. Aspirin 81 mg per tube daily. 8. Entecavir 0.05 mg/mL solution 10 mg per tube q.3 days. 9. Tivicay 50 mg per tube daily. 10. Magnesium oxide 400 mg per tube b.i.d. 11. Kaletra per tube daily. 12. Keppra 750 mg per tube b.i.d. HISTORY OF PRESENT ILLNESS/HOSPITAL COURSE: Mr. Russell is a 44-year-old gentleman brought in by his mother from bleeding from his trach site and states that he has just not been acting himself for the past 2 days. She states that he had a bloody nose the night prior and had mild blood coming from his trach when sneezing. She denied any fevers, chills, sweats or cough and states that his PEG tube feeds are going as normal. No reflux and no bleeding from the PEG. She denies any stool in the blood. Of note, he was recently discharged from [facility] after treatment for pneumonia about a month ago and has been doing fine since then until a day or two ago. He was following commands and able to say few words and was not acting himself. In the ED, he was noted to have a creatinine of 7.09 up from a baseline creatinine of 1. He was hypercalcemic at 12.9 and hypokalemic at 3.0. The patient was given fluid resuscitation and calcitonin and Nephrology was called for emergent dialysis. Initially at presentation, the mother stated that she did not want to pursue dialysis and that she would like to speak with the Palliative Care team. The patient was admitted to telemetry for further evaluation and management. Regarding the patient's acute renal failure and hypercalcemia, initially Dr. Jerez with Nephrology was consulted. I spoke with the family and offered dialysis again. Mother initially declined dialysis and the patient was monitored with IV fluids. On the first day of hospitalization, his creatinine had decreased from 7.09 to 6.04. The patient was given a trach speaking valve and was more alert and awake, able to verbalize understanding of medical decisions and provide further information. After discussion, they decided to pursue temporary dialysis and Dr. Lacy was consulted for dialysis catheter placement. Palliative Care team was also consulted to help elucidate goals of care. After discussion with Dr. Lacy, Dr. Salazar, the primary team, and palliative care, the patient himself was able to vocalize that he would like to decline dialysis, changes code status to DNR, and would like to pursue to comfort care with home hospice. These discussions occurred on September 08 when the patient was able to make decisions and verbalized understanding using his trach speaking valve and expresses personal wishes. Palliative Care team was able to continue to assist. Please see their notes for further information. The patient was monitored closely as the hospice was begun to be arranged. Overnight on through 09/09, the patient had an episode of status epilepticus and thus was transferred to the [facility] for closer monitoring. Throughout that days, condition did continue to worsen with continued seizures and bradycardic episodes. The patient was given initial Keppra loading dose and this was increased to help control breakthrough seizures and he was using p.r.n. Ativan for breakthrough seizures. Starting with the status epilepticus event, the patient continued to have acute metabolic encephalopathy secondary to the acute renal failure, hypercalcemia, uremia, and seizures. The patient did not return to baseline mentation and throughout the remainder of his hospitalization was nonverbal and having nonpurposeful movements. He did not have a gag reflex with deep suctioning and only appeared to withdrawal from pain. The patient's home medications were continued for his HIV and Keppra was initially restarted at 500 b.i.d. and this was increased to 750 b.i.d. to help control breakthrough seizures. All medications were dosed renally. The patient did have bradycardic events throughout the IMCU stay. This is likely secondary to the metabolic derangements including his hypercalcemia, acute renal failure. Troponin was 0.031. During these events, an EKG showed sinus bradycardia, no further intervention was pursued as the patient was transitioned to hospice. Throughout the time in the IMCU, there was much discussion with mother who is MPOA at bedside with palliative care and primary team. As the patient had voiced his wishes to multiple physicians, bilingual patient support caseworker, and palliative care team. This continued to be discussed with mom to arrange home hospice. Mother spoke with family members, who came to visit the patient and had difficulty coming to his ultimate decision, but ultimately voiced that she would like to pursue his wishes and go home with home hospice. This was arranged with the assistance of case management, Palliative Care team, and the patient was discharged home with home hospice. The patient did complete a course of antibiotics for possible tracheitis throughout his hospitalization as well. Spiritual care was consulted, who assisted with comforting family. Palliative Care team to work with mom regarding goals of care and the patient was continued to be DNR DNI during the hospitalization; however, mom states she did not want to sign an out of hospital DNR at this time and home hospice would help with this in the future. At the time of discharge, the patient was stable, having less breakthrough seizures; however, still minimally responsive, only withdrawing to pain. Discharge plan to home hospice discussed with mom at bedside, who voiced agreement understanding and was eager to be discharged home. All questions were answered appropriately. DISPOSITION: Stable. DISCHARGE INSTRUCTIONS: 1. Location: Home with home hospice. 2. Diet: PEG tube feed. 3. Activity: As tolerated. 4. Followup: The patient will follow up with hospice as directed and primary care physician as directed as well. Job ID: [id number] NEW
== END 2019-09-14 14:36 | disposition hospice, home (50) | DRG 682 ==
LOC: ERS 11:45 → ERHOLD 15:34 → 2NO 21:56 → IMCU/EMU 09-10 04:15
PROVIDERS: ADMIT Student in an Organized Health Care Education/Training Program; ATTEND Student in an Organized Health Care Education/Training Program
DX: N17.9 Acute kidney failure, unspecified (principal); G93.41 Metabolic encephalopathy; G82.50 Quadriplegia, unspecified; E87.1 Hypo-osmolality and hyponatremia; B19.10 Unspecified viral hepatitis B without hepatic coma; B20 Human immunodeficiency virus [HIV] disease; Z51.5 Encounter for palliative care; Z66 Do not resuscitate; N18.6 End stage renal disease; E83.52 Hypercalcemia; E87.6 Hypokalemia; G40.909 Epilepsy, unspecified, not intractable, without status epilepticus; J04.10 Acute tracheitis without obstruction; Z93.0 Tracheostomy status; Z87.891 Personal history of nicotine dependence; R00.1 Bradycardia, unspecified; Z87.01 Personal history of pneumonia (recurrent); Z93.1 Gastrostomy status
CPT/HCPCS: 36415; 51701; 71045; 80053; 81015; 82306; 82330; 82652; 83605; 83615; 83690; 83735; 83970; 84100; 84484; 85025; 85048; 85060; 85610; 86361; 86704; 86706; 86803; 87040; 87086; 87149; 87340; 87536; 90471; 90686; 93005; 93010; 94640; 94760; 96360; 96361; 96372; C1752; C9399; G0008; J0295; J0630; J1953; J2060; J3490; J7620; Q2009; S0028

== ENCOUNTER 2020-04-06 08:15 | Emergency (ER) | payer OTHER ==
[2020-04-06] MEDS ORDERED: Lorazepam 2 MG/ML VIAL ONE (08:20)
[2020-04-06] MEDS ORDERED: levETIRAcetam 500 MG/100 ML PREMIX BAG ONE ×2 (08:23→08:25)
[2020-04-06 08:41] LABS: #Eosinphils 0.2 thou/uL (0.0-0.7); #Lymphocytes 3.2 thou/uL (1.20-3.40); #Monocytes 0.6 thou/uL (0.11-0.59); #Neutrophils 4.1 thou/uL (1.40-6.50); %Basophils 0.5 % (0.0-1.0); %Eosinophils 2.3 % (0.0-10.0); %Lymphocytes 39.4 % (21.0-51.0); %Monocytes 6.9 % (0.0-10.0); Hemoglobin 13.7 g/dL (14.0-18.0); Mean Corpuscular HGB CONC 32.9 g/dL (32.0-36.0); Mean Corpuscular Hemoglobin 32.5 pg (27.0-31.0); Mean Corpuscular Volume 98.7 fL (78.0-98.0); Platelet Count 233 thou/uL (130-400); RBC Distribution Width 12.5 % (11.5-14.5); Red Blood Cell (RBC) Count 4.22 mill/uL (4.70-6.10); White Blood Cell (WBC) Count 8.1 thou/uL (4.8-10.8)
[2020-04-06 08:58] LABS: Bacteria/HPF None Seen HPF (None Seen); Bilirubin Negative (Negative); Blood, Urine 2+ (Negative); Clarity Clear (Clear); Glucose, Urine (Dipstick) Normal (Negative); Ketone, Urine Negative (Negative); Leukocyte Negative Leu/uL (Negative); Nitrite Negative (Negative); Protein, Urine (Dipstick) 70 mg/dL (Neg-Trace); Specific Gravity, Urine 1.013 (1.002-1.036); Squamous Epithelial None Seen HPF (0-3); Urobilinogen Normal mg/dL (Less than 2); WBC/HPF 0-3 HPF (0-3)
[2020-04-06 08:59] LABS: AST (SGOT) 52 U/L (5-34); Albumin 3.4 g/dL (3.5-5.0); Alkaline Phosphatase 324 U/L (40-110); Anion Gap 13 mmol/L (10-20); BUN (Urea Nitrogen) 73 mg/dL (8.9-20.6); Bilirubin, Total 0.2 mg/dL (0.2-1.2); Calc. Creatinine Clearance 0 mL/min (70-130); Carbon Dioxide 26 mmol/L (22-29); Chloride 100 mmol/L (98-107); Estimated GFR-MDRD 16; Globulin 5.8 g/dL (2.4-3.5); Glucose 97 mg/dL (70-105); Protein, Total 9.2 g/dL (6.0-8.3); Sodium 136 mmol/L (136-145)
[2020-04-06 09:00] LABS: ALT (SGPT) 42 U/L (8-55); CK (CPK) 64 U/L (30-200)
--- NOTE | 2020-04-06 09:00 | CT ---
CT Brain WO Con: 04/06/2020 8:46 AM CLINICAL HISTORY: History of epilepsy and recent seizure. IMAGING TECHNIQUE: Multiple CT images were obtained of the brain without IV contrast. COMPARISON: CT of the brain without contrast dated April 30, 2016. FINDINGS: BRAIN: Evidence of acute infarct: None. Evidence of chronic ischemic change:There are areas of encephalomalacia involving the left frontal lo be and right frontoparietal cortex that are stable. Diffuse hypodensity and atrophy of the cerebellum appears similar. Evidence of intracranial hemorrhage: None. Evidence of midline shift: Third ventricle and septum pellucidum are midline. Ventricles: There is ex vacuo dilatation of the lateral ventricles due to the encephalomalacia invol ving both cerebral hemispheres. There is ex vacuo dilatation of the fourth ventricle due to the diffuse cerebellar atrophy. SKULL: There is a stable left frontal skull craniectomy. Right frontal craniotomy is similar. No acu te osseous abnormality is demonstrated. VISUALIZED PARANASAL SINUSES: Clear. MASTOID AIR CELLS: Clear. EXTRACRANIAL SOFT TISSUES: Normal. IMPRESSION: No acute intracranial abnormality.
[2020-04-06 09:02] LABS: Calcium 12.8 mg/dL (7.8-10.44); Potassium 2.9 mmol/L (3.5-5.1)
--- NOTE | 2020-04-07 07:46 | RAD ---
Chest AP view INDICATION: History of epileptic seizures COMPARISON: Prior exam dated September 08, 2019 FINDINGS: Lungs: Bronchiectasis and interstitial scarring involving both lower lobes, right greater than left are stable. Cardiac silhouette: The cardiomediastinal silhouette appears within normal limits. Pulmonary vasculature: Normal Pleural spaces: No pleural effusion or pneumothorax is demonstrated. Upper abdomen: No abnormality seen. Osseous structures: There is diffuse osteopenia. No acute fracture or subluxation demonstrated. Additional findings: Tracheostomy tube is unchanged. There is a percutaneous gastrostomy tube within the left upper quadrant of the abdomen. IMPRESSION: No acute cardiopulmonary abnormality.
== END 2020-04-06 14:23 | disposition short-term general hospital (02) ==
LOC: ERS 08:15
DX: G40.901 Epilepsy, unspecified, not intractable, with status epilepticus (principal); N17.9 Acute kidney failure, unspecified; E86.0 Dehydration; Z21 Asymptomatic human immunodeficiency virus [HIV] infection status; G82.50 Quadriplegia, unspecified; F41.9 Anxiety disorder, unspecified; Z87.891 Personal history of nicotine dependence; Z79.899 Other long term (current) drug therapy
CPT/HCPCS: 51701; 70450; 71045; 80053; 81003; 81015; 82550; 83605; 85025; 96365; 96366; 96372; J1953; J2060

== ENCOUNTER 2020-07-25 06:57 | Outpatient (CLI) | payer OTHER ==
[2020-07-25 20:52] LABS: SARS-CoV-2 PCR by NAA Not Detected (NotDetected)
== END 2020-07-25 06:58 | disposition home or self-care (01) ==
LOC: LABBT 06:57
PROVIDERS: ATTEND Internal Medicine Gastroenterology
DX: Z01.812 Encounter for preprocedural laboratory examination (principal); Z20.822 Contact with and (suspected) exposure to COVID-19
CPT/HCPCS: 87635; U0003; U0005

== ENCOUNTER 2020-07-28 09:53 | Day surgery (SDC) | payer OTHER ==
[2020-07-26 12:23] VITALS: BMI 22.1
--- NOTE | 2020-08-01 14:07 | OP ---
DATE OF PROCEDURE: 07/28/2020 OPERATIVE PROCEDURE: Removal of gastrostomy tube at bedside with the subsequent replacement, placed a 22-Thai gastrostomy tube. PREOPERATIVE DIAGNOSES: Status post cerebrovascular accident, aspiration, dysphagia. PROCEDURE NOTE: The original plan was for the patient to have an upper endoscopy to rule out G-tube replace. Due to intravenous access, it was decided to remove the gastrostomy tube at bedside in Day Surgery. DESCRIPTION OF PROCEDURE: The patient was placed on his backside and cleaned the G-tube site with Betadine solution, 10 mL used to aspirate the G-tube alone, and 20 mL of water was aspirated. The tube was easily removed. The area appeared very healthy. A 22-Thai new gastrostomy tube placed without any difficulty. There was good aspiration of gastric contents and also flushing was very easy and return was very easy. The bumper was applied to the G-tube site and dressing applied. The patient did well postprocedure. DISCHARGE PLANNING: This is a 45-year-old male who came for a G-tube placement in the ED. However, the EGD could not be done because of the lack of IV access. The patient underwent replacement of G-tube at bedside in the Day Surgery. He did well and is being discharged home. DISCHARGE RECOMMENDATIONS: His mother advised to call me if he develops any DKA, fever, abdominal pain, nausea, vomiting. The patient will come back to see me as needed. Job ID: [id number]
--- NOTE | 2020-08-01 14:07 | HP ---
HISTORY OF PRESENT ILLNESS: This is a 45-year-old unfortunate black male who has had a CVA, aphasia, dysphagia. The patient had an NG tube placement done in the past. The G-tube appears to warrant a new tube placement. The patient was brought to Day Surgery by the patient's mother for the procedure . MEDICAL ILLNESSES: Significant for: 1. CVA. 2. Nonverbal. 3. Dysphagia from aspiration. 4. Chronic kidney disease. 5. Anemia. ALLERGIES: NONE. PHYSICAL EXAMINATION: GENERAL: Reveals a fragile looking male, appears comfortable. VITAL SIGNS: He is afebrile. Pulse is 76, blood pressure 120/70. HEENT: Conjunctivae are clear. CARDIOVASCULAR SYSTEM: Normal heart sounds. LUNGS: Clear to auscultation. ABDOMEN: Soft. No organomegaly. No tenderness. No masses. The G-tube site appears healthy and does not show any infection. PLAN: Replacement of G-tube at bedside, as an EGD cannot be done because of his lack of IV access. Job ID: [id number]
== END 2020-07-28 12:52 | disposition home or self-care (01) ==
LOC: SDC 09:53
PROVIDERS: ATTEND Internal Medicine Gastroenterology
PROC: 0D20XUZ Change Feeding Device in Upper Intestinal Tract, External Approach (ICD-10-PCS; principal; 2020-07-28)
DX: K94.23 Gastrostomy malfunction (principal); R13.10 Dysphagia, unspecified; N18.9 Chronic kidney disease, unspecified; D64.9 Anemia, unspecified; Z86.73 Personal history of transient ischemic attack (TIA), and cerebral infarction without residual deficits; Z79.82 Long term (current) use of aspirin; Z79.899 Other long term (current) drug therapy

== ENCOUNTER 2020-08-02 20:52 | Inpatient (IN) | payer OTHER ==
--- NOTE | 2020-08-02 21:18 | RAD ---
EXAM: CHEST ONE VIEW HISTORY: Dyspnea and difficulty breathing. Low blood pressure. COMPARISON: 04/06/2020 FINDINGS: Tracheostomy device remains in place. The cardiac silhouette is at the upper limits of normal in size . Minimal bibasilar peripheral opacities are seen at the medial aspect of each lung base which may be related to atelectasis, aspiration pneumonitis, or developing pneumonia. No consolidation or pleur al fluid is identified. No other interval change. IMPRESSION: 1. Mild bibasilar opacities which may be related to atelectasis, aspiration pneumonitis, or related t o developing pneumonia. Follow-up to resolution is recommended.
[2020-08-02] MEDS ORDERED: Cefepime 2 GM VIAL ONE (21:31)
[2020-08-02] MEDS ORDERED: Vancomycin 1 GM/200 ML BAG ONE (21:31)
[2020-08-02 21:33] LABS: Bilirubin Negative (Negative); Blood, Urine Trace (Negative); Clarity Clear (Clear); Glucose, Urine (Dipstick) Normal (Negative); Ketone, Urine Negative (Negative); Leukocyte Negative Leu/uL (Negative); Nitrite Negative (Negative); Protein, Urine (Dipstick) 30 mg/dL (Neg-Trace); Specific Gravity, Urine 1.012 (1.002-1.036); Squamous Epithelial 0-3 HPF (0-3); Urobilinogen Normal mg/dL (Less than 2); pH, Urine 5.5 (5.0-9.0)
[2020-08-02 21:34] LABS: Bacteria/HPF 2+ HPF (None Seen)
[2020-08-02 21:54] LABS: Hemoglobin 9.1 g/dL (14.0-18.0); Mean Corpuscular HGB CONC 32.6 g/dL (32.0-36.0); Mean Corpuscular Hemoglobin 34.1 pg (27.0-31.0); Mean Platelet Volume 10.9 fL (7.4-10.4); Platelet Count 192 thou/uL (130-400); RBC Distribution Width 14.2 % (11.5-14.5); Red Blood Cell (RBC) Count 2.68 mill/uL (4.70-6.10)
[2020-08-02 22:10] LABS: Band 2 % (5-11); Lymphocytes 22 % (21-51); MDiff Complete? YES; Macrocytosis SLIGHT = 6-15 cells (100X) (0-5/hpf); Monocytes 3 % (0-10); Neutrophil 73 % (42-75); Target Cells SLIGHT = 2-5 cells (100X) (0-1/hpf)
[2020-08-02 22:37] LABS: BUN (Urea Nitrogen) 144 mg/dL (8.9-20.6)
[2020-08-02] MEDS ORDERED: Norepinephrine 8 MG/0.9% NS 250 ML ONE (22:54)
[2020-08-02 23:20] LABS: Albumin 2.1 g/dL (3.5-5.0)
[2020-08-02 23:21] LABS: Chloride 89 mmol/L (98-107); Sodium 123 mmol/L (136-145)
[2020-08-02 23:22] LABS: Calcium 11.2 mg/dL (7.8-10.44); Glucose 113 mg/dL (70-105)
[2020-08-02 23:23] LABS: Protein, Total 6.1 g/dL (6.0-8.3)
[2020-08-02 23:24] LABS: Anion Gap 14 mmol/L (10-20); Bilirubin, Total 1.3 mg/dL (0.2-1.2); Carbon Dioxide 23 mmol/L (22-29)
[2020-08-02 23:25] LABS: Alkaline Phosphatase 500 U/L (40-110)
[2020-08-02 23:26] LABS: Calc. Creatinine Clearance 0 mL/min (70-130)
[2020-08-02 23:28] LABS: ALT (SGPT) 52 U/L (8-55); AST (SGOT) 46 U/L (5-34)
[2020-08-02 23:44] LABS: Potassium 2.5 mmol/L (3.5-5.1)
--- NOTE | 2020-08-02 23:44 | PDOC.FPRHP ---
- History of Present Illness Chief Complaint: AMS History of Present Illness: This is a 45-year-old male who presents to the emergency department for a chief complaint of altered mental status and difficulty breathing. The patient was last admitted for pneumonia at [facility] on 05/31/2020. He does have a history of seizure disorder quadriplegia tracheostomy dependence and HIV. Patient also has had acute renal failure hyponatremia and hypercalcemia. The p the patient's mother stated that the patient had been more somnolent today when she spoke with the Neurologist for his seizures. She was concerned and thought about calling an ambulance which she did later call and they were toned out for his difficulty breathing. The patient is unable to provide any history at this time. Per EMS his baseline is slightly improved from this he is usually noncommunicative. His temperature was apparently low at home. - Allergies/Adverse Reactions Allergies Allergy/AdvReac Type Severity Reaction Status Date / Time No Known Allergies Allergy Verified 07/26/20 12:17 - Home Medications Medication Instructions Recorded Confirmed Type Topiramate 100 mg PER TUBE HS 05/01/16 07/26/20 History Multivit,Tx with Iron,Minerals 1 tablet PER TUBE DAILY 09/13/17 07/26/20 History [Thera-M] lamiVUDine [Epivir Oral Solution] 5 ml PER TUBE DAILY 09/13/17 07/26/20 History Aspirin [Ecotrin Low Strength] 81 mg PER TUBE DAILY 09/08/19 07/26/20 History Cetirizine HCl [Zyrtec] 10 mg PER TUBE DAILY PRN 09/08/19 07/26/20 History Dolutegravir Sodium [Tivicay] 50 mg PER TUBE DAILY 09/08/19 07/26/20 History Entecavir [Baraclude] 10 mg PER TUBE Q3DAYS 09/08/19 07/26/20 History Lacosamide [Vimpat] 100 mg PER TUBE BID 09/08/19 07/26/20 History Lopinavir/Ritonavir [Kaletra 80 5 ml PER TUBE DAILY 09/08/19 07/26/20 History mg-20 mg/ml Soln] Nut.tx.impaired Renal Fxn,Soy 1 can PO TID 09/08/19 07/26/20 History [Nepro Carb Steady] levETIRAcetam [Keppra Oral 750 mg PER TUBE BID #450 ml 09/14/19 07/26/20 Rx Solution] Albuterol Sulfate [Albuterol 2.5 mg NEB Q6H PRN 07/26/20 07/26/20 History Sulfate Neb] Hydrocortisone [Cortef] 10 mg PO DAILY 07/26/20 07/26/20 History - History PMHx: HIV, hep B, seizure disorder, 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 - Vital signs BP: [] HR: [] RR: [] Tmax: [] Pox: []% on [] Wt: [] FMR H&P: Results - Labs Result Diagrams: 08/02/20 21:26 08/02/20 23:06 Lab results: WBC 9.0 thou/uL (4.8-10.8) 08/02/20 21:26 Hgb 9.1 g/dL (14.0-18.0) L 08/02/20 21:26 Hct 28.0 % (42.0-52.0) L 08/02/20 21:26 MCV 104.0 fL (78.0-98.0) H 08/02/20 21:26 Plt Count 192 thou/uL (130-400) 08/02/20 21:26 Band Neuts % (Manual) 2 % (5-11) L 08/02/20 21:26 Sodium 123 mmol/L (136-145) L 08/02/20 23:06 Chloride 89 mmol/L (98-107) L 08/02/20 23:06 Carbon Dioxide 23 mmol/L (22-29) 08/02/20 23:06 BUN 144 mg/dL (8.9-20.6) H 08/02/20 23:06 Creatinine 6.20 mg/dL (0.7-1.3) H 08/02/20 23:06 Glucose 113 mg/dL (70-105) H 08/02/20 23:06 Lactic Acid 0.8 mmol/L (0.5-2.2) 08/02/20 Unknown Calcium 11.2 mg/dL (7.8-10.44) H 08/02/20 23:06 Total Bilirubin 1.3 mg/dL (0.2-1.2) H 08/02/20 23:06 AST 46 U/L (5-34) H 08/02/20 23:06 ALT 52 U/L (8-55) 08/02/20 23:06 Alkaline Phosphatase 500 U/L (40-110) H 08/02/20 23:06 Serum Total Protein 6.1 g/dL (6.0-8.3) 08/02/20 23:06 Albumin 2.1 g/dL (3.5-5.0) L 08/02/20 23:06 Urine Ketones Negative mg/dL (Negative) 08/02/20 21:14 Urine Blood Trace (Negative) A 08/02/20 21:14 Urine Nitrite Negative (Negative) 08/02/20 21:14 Ur Leukocyte Esterase Negative Jared/uL (Negative) 08/02/20 21:14 Urine RBC 11-20 HPF (0-3) A 08/02/20 21:14 Urine WBC 4-6 HPF (0-3) A 08/02/20 21:14 Ur Squamous Epith Cells 0-3 HPF (0-3) 08/02/20 21:14 Urine Bacteria 2+ HPF (None Seen) A 08/02/20 21:14 FMR H&P: Upper Level - Plan Date/Time: 08/02/20 2920 I, [], have evaluated this patient and agree with findings/plan as outlined by sourcing intern resident. Pertinent changes/additions are listed here.
[2020-08-02] MEDS ORDERED: Sulfamethoxazole/Trimethoprim 320 MG in Dextrose 5% in Water 500 ML IVPB SCH (23:45)
[2020-08-03] MEDS ORDERED: Acetaminophen 650 MG Suppository PR PRN (02:00)
[2020-08-03] MEDS ORDERED: Norepinephrine 8 MG/0.9% NS 250 ML IVPB PRN (02:00)
[2020-08-03] MEDS ORDERED: Acetaminophen 325 MG TAB PER TUBE PRN (02:00)
--- NOTE | 2020-08-03 02:16 | PDOC.FPRHP ---
- History of Present Illness Chief Complaint: AMS History of Present Illness: This is a 45-year-old male who presents to the emergency department for a chief complaint of altered mental status and difficulty breathing. He presented with his mother who is his strategic communications specialist. Mom stated that she noticed a change in his mental status over the last day and that his trach secretions had changed from clear to a brown/green color. He was also having aspiration as well. For this reason, EMS was called to bring patient to ED for further evaluation. He is usually noncommunicative at baseline. Mom states that at one point, patient was on hospice as he was having worsening renal function into renal failure and did not want dialysis. Pt was taken off of hospice and currently does not have this status at this time. The rest of his ROS was negative. ED Course: ED: NS bolus 30ml/kg, Cefepime, Vancomycin, Bactrim (PJP) R femoral line placed for levophed CXR obtained and showed mild bibasilar opacities which may be related to atelectasis, aspiration pneumonitis, or related to developing PNA - Allergies/Adverse Reactions Allergies Allergy/AdvReac Type Severity Reaction Status Date / Time No Known Allergies Allergy Verified 07/26/20 12:17 - Home Medications Medication Instructions Recorded Confirmed Type Topiramate 100 mg PER TUBE HS 05/01/16 08/03/20 History Multivit,Tx with Iron,Minerals 1 tablet PER TUBE DAILY 09/13/17 08/03/20 History [Thera-M] lamiVUDine [Epivir Oral Solution] 15 ml PER TUBE DAILY 09/13/17 08/03/20 History Aspirin [Ecotrin Low Strength] 81 mg PER TUBE DAILY 09/08/19 08/03/20 History Cetirizine HCl [Zyrtec] 10 mg PER TUBE DAILY PRN 09/08/19 07/26/20 History Dolutegravir Sodium [Tivicay] 50 mg PER TUBE DAILY 09/08/19 08/03/20 History Entecavir [Baraclude] 10 mg PER TUBE Q3DAYS 09/08/19 08/03/20 History Lacosamide [Vimpat] 200 mg PER TUBE BID 09/08/19 08/03/20 History Lopinavir/Ritonavir [Kaletra 80 5 ml PER TUBE BID 09/08/19 08/03/20 History mg-20 mg/ml Soln] Nut.tx.impaired Renal Fxn,Soy 1 can PO TID 09/08/19 07/26/20 History [Nepro Carb Steady] Albuterol Sulfate [Albuterol 2.5 mg NEB Q6H PRN 07/26/20 08/03/20 History Sulfate Neb] Hydrocortisone [Cortef] 10 mg PO DAILY 07/26/20 07/26/20 History Chlorhexidine Gluconate 15 ml MM BID 08/03/20 08/03/20 History [Chlorhexidine Gluconate 0.12% Oral Rinse] Magnesium Oxide 400 mg PER TUBE BID 08/03/20 08/03/20 History levETIRAcetam [Keppra Oral 500 mg PER TUBE DAILY 08/03/20 08/03/20 History Solution] - History PMHx: Quadriplegic, HIV, hep B, seizure disorder, chronic renal failure PSHx: Craniotomy for Nocardia brain abscess, Tracheostomy, PEG placed on 07/19/20 FHx: Non contributory Social: former tobacco user, no EtOH or drug use. - Review of Systems ROS unobtainable: due to mental status - Vital signs BP: 91/58, MAP: 69, Pulse: 72, Resp: 19, Pain: 0, O2 sat: 96 on (Room Air), Time: 08/03/2020 00:15. - Physical Exam Constitutional: NAD HEENT: normocephalic and atraumatic Neck: supple Heart: RRR, normal S1/S2, no murmurs/rubs/gallops Lungs: no respiratory distress, good air movement, no rales/rhonchi, no wheezing, no retractions Abdomen: soft, non-tender, bowel sounds present, no masses/distention Heme/Lymphatic: no unusual bruising or bleeding Psychiatric: other (unable to obtain due to mental status) FMR H&P: Results - Labs Result Diagrams: 08/03/20 06:52 08/03/20 10:22 Lab results: WBC 9.0 thou/uL (4.8-10.8) 08/02/20 21:26 Hgb 9.1 g/dL (14.0-18.0) L 08/02/20 21:26 Hct 28.0 % (42.0-52.0) L 08/02/20 21:26 MCV 104.0 fL (78.0-98.0) H 08/02/20 21:26 Plt Count 192 thou/uL (130-400) 08/02/20 21:26 Band Neuts % (Manual) 2 % (5-11) L 08/02/20 21:26 Sodium 123 mmol/L (136-145) L 08/02/20 23:06 Potassium 2.5 mmol/L (3.5-5.1) L* 08/02/20 23:06 Chloride 89 mmol/L (98-107) L 08/02/20 23:06 Carbon Dioxide 23 mmol/L (22-29) 08/02/20 23:06 BUN 144 mg/dL (8.9-20.6) H 08/02/20 23:06 Creatinine 6.20 mg/dL (0.7-1.3) H 08/02/20 23:06 Glucose 113 mg/dL (70-105) H 08/02/20 23:06 Lactic Acid 0.8 mmol/L (0.5-2.2) 08/02/20 Unknown Calcium 11.2 mg/dL (7.8-10.44) H 08/02/20 23:06 Total Bilirubin 1.3 mg/dL (0.2-1.2) H 08/02/20 23:06 AST 46 U/L (5-34) H 08/02/20 23:06 ALT 52 U/L (8-55) 08/02/20 23:06 Alkaline Phosphatase 500 U/L (40-110) H 08/02/20 23:06 Serum Total Protein 6.1 g/dL (6.0-8.3) 08/02/20 23:06 Albumin 2.1 g/dL (3.5-5.0) L 08/02/20 23:06 Urine Ketones Negative mg/dL (Negative) 08/02/20 21:14 Urine Blood Trace (Negative) A 08/02/20 21:14 Urine Nitrite Negative (Negative) 08/02/20 21:14 Ur Leukocyte Esterase Negative Jared/uL (Negative) 08/02/20 21:14 Urine RBC 11-20 HPF (0-3) A 08/02/20 21:14 Urine WBC 4-6 HPF (0-3) A 08/02/20 21:14 Ur Squamous Epith Cells 0-3 HPF (0-3) 08/02/20 21:14 Urine Bacteria 2+ HPF (None Seen) A 08/02/20 21:14 FMR H&P: A/P - Plan ##Septic Shock 2/2 Aspiration PNA -Presented hypotensive, hypothermic, and altered with CXR findings as described above. Dependent on trach and peg -LA 0.8 -Levophed drip started due to pressures to keep MAP > 65 -Continue with vanc and add zosyn, renally dosing -Blood and urine cultures pending, UA showed 2+ bacteria, was obtained via condom cath -COVID, flu negative -Given bactrim in ED for PJP PPX due to HIV status, sulfa allergy noted on chart on PICIS, day team to confirm this before continuing -Will hold of on fluids after 2L bolus in ED as patient is currently anuric ##Acute Renal Failure -Uremic: presented with BUN 144, Garment Supervisor 6.2, does not desire dialysis at this time -Palliative care consulted to re-discuss goals of care and hospice with family ##Electrolyte Disturbances -K 2.5, replete as necessary -Na 123 -Ca 11.2 -BMP in AM Chronic Conditions: ##HIV ##Quadriplegia ##Seizure disorder ##Hx Hep B -aware, to restart home meds CODE: DNAR DIET: PEG feedings VTE: Heparin PCP: ANGELICA Dispo: admit to CCU based on requirement of levophed for maintaining MAPs > 65. palliative care to see patient in morning to discuss hospice status again and goals of care as patient does not want to pursue dialysis per his wishes. FMR H&P: Upper Level - Plan Date/Time: 08/03/20215 Kyle Harding pgy3, have evaluated this patient and agree with findings/plan as outlined by internet specialist resident. Pertinent changes/additions are listed here. 45yo M with pmh of HIV, ESRD, and quadriplegia 2/2 complication for surgical mgmt of a nocardia brain abscess presents with 1 day hx of "acting different" and changes in sputum. Sputum changed from clear to dark per mother and he has had a temp of 96 at home. On exam pt appears to be very fatigued, he is hypothermic to 95.2 and RR 20. BPs were persistently 80/50s before starting levophed in the ED. He has bilateral inspiratory cracles in lung bases. heart RRR, he rests under bear hugger. A/P GOALS OF CARE: Discussed with mother/caregiver. He was DCd to hospice in August 2019 but mother states eventually hospice was revoked. He has refused dialysis since August per mother. She is somewhat conflicted on his goals of care but knows he would refuse dialysis at this time even with full knowledge that it is the only lifesaving option. She would like to speak with palliative care in the morning about the possibility of hospice. She states he is DNAR but would like to treat his pneumonia and septic shock for the time being. She would like to continue pressors for the time being but may want to discontinue them in the morning after talking with palliative care, she is not ready to make that decision now. Septic Shock 2/2 PNA A- stable on 5 of levophed. He is s/p 30ml/kg IVF. Will be mindful of fluids as it is uncertain how much urine he is able to produce. S/p dose of cefepime and vanc. LA .08. CXR shows bibasilar developing pneumonia. UA gathered from condom cath has bacteria P- admit to CCU -DC cefepime -continue Vanc and start Zosyn for anaerobic coverage, pharmacy to dose renally -fluids will be KVO considering ESRD -if pressures become unstable will titrate up levophed and consider adding more fluids based on volume status/exam Hypokalemia -potassium 2.5, will give IV and check later this morning Hyponatremia -Na 123 on admission, pt then got bolus IVF. ultimately dialysis would be indicated but pt refuses per mother ESRD -pt refuses dialysis, unknown how much urine he produces Uremia -BUN 144, pt seems to be somewhat altered. likely hospice consult in AM Elevated Alk phos -hold workup until palliative consult ESRD, Anemia, HIV, Seizure d/o, HepB -home meds CODE: DNAR dispo: intpt, expect > 2 midnights IVF: KVO Diet: Dietary consulted for PEG feeds Addendum - Attending - Attending Attestation Date/Time: 08/02/20 5471 I personally evaluated the patient and discussed the management with resident team I agree with the History, Examination, Assessment and Plan documented above with any addition or exceptions noted below. Will admit for treatment of sepsis. Currently pending bed placement and will be in ER overnight. Continuous tele monitoring for now. Restart home meds. Patient unsure on HD. Will need to decide due to severity of uremia and GFR. Renal dose meds. Trend labs closely due to changes and effects of GFR along with metabolites. Patient previously on hospice. Discussed with mom but unsure curr ently. Will continue to follow closely throughout the night. Has received fluid bolus. Will add maintenance for now but will likely need to slow after 4 hours. Replace electrolytes. Jennifer
[2020-08-03 02:28] LABS: SARS-CoV-2 NAA Rapid Test Not Detected (NotDetected)
[2020-08-03] MEDS ORDERED: Potassium Chloride 40 MEQ in Sodium Chloride 0.9% 250 ML 250 ML IVPB SCH (03:00)
[2020-08-03] MEDS ORDERED: Albuterol Sulfate 2.5 mg/3 ml Neb NEB PRN (06:06)
[2020-08-03] MEDS ORDERED: Loratadine 10 MG TAB PER TUBE PRN (06:12)
[2020-08-03 06:30] LABS: Anion Gap 17 mmol/L (10-20); Calc. Creatinine Clearance 0 mL/min (70-130); Calcium 11.6 mg/dL (7.8-10.44); Carbon Dioxide 20 mmol/L (22-29); Chloride 89 mmol/L (98-107); Potassium 3.4 mmol/L (3.5-5.1); Sodium 123 mmol/L (136-145)
[2020-08-03 06:33] LABS: Glucose 59 mg/dL (70-105)
[2020-08-03 06:41] LABS: BUN (Urea Nitrogen) 138 mg/dL (8.9-20.6)
[2020-08-03] MEDS: Piperacillin/Tazobactam 2.25 GM in Sodium Chloride 0.9% 100 ML IVPB SCH ×3 (06:50→21:53)
[2020-08-03] MEDS ORDERED: Piperacillin/Tazobactam 2.25 GM VIAL ONE (06:51)
[2020-08-03] MEDS ORDERED: Norepinephrine 8 MG/0.9% NS 250 ML ONE (06:58)
[2020-08-03] MEDS ORDERED: Dextrose 50% Abboject 50 ML SYRINGE ONE (06:59)
[2020-08-03 07:03] LABS: #Lymphocytes 1.2 thou/uL (1.20-3.40); #Monocytes 0.8 thou/uL (0.11-0.59); #Neutrophils 7.4 thou/uL (1.40-6.50); %Basophils 0.3 % (0.0-1.0); %Lymphocytes 13.1 % (21.0-51.0); %Monocytes 8.6 % (0.0-10.0); Hemoglobin 7.4 g/dL (14.0-18.0); Mean Corpuscular Hemoglobin 34.9 pg (27.0-31.0); Mean Platelet Volume 8.1 fL (7.4-10.4); Platelet Count 162 thou/uL (130-400); RBC Distribution Width 13.6 % (11.5-14.5); Red Blood Cell (RBC) Count 2.12 mill/uL (4.70-6.10); White Blood Cell (WBC) Count 9.5 thou/uL (4.8-10.8)
[2020-08-03] MEDS ORDERED: Dextrose 50% Abboject 50 ML SYRINGE SLOW IVP PRN (07:04)
[2020-08-03] MEDS ORDERED: Lorazepam 2 MG/ML VIAL ONE (07:16)
[2020-08-03] MEDS ORDERED: Lorazepam 2 MG/ML VIAL SLOW IVP SCH ×2 (07:30→08:00)
[2020-08-03] MEDS ORDERED: Cefepime 2 GM in Sodium Chloride 0.9% 100 ML IVPB SCH (09:00)
[2020-08-03] MEDS ORDERED: Aspirin Chewable 81 MG TAB ONE (09:09)
[2020-08-03] MEDS ORDERED: Multivitamin W/ Minerals 1 TAB ONE (09:09)
[2020-08-03] MEDS: Heparin 5,000 UNITS/ML VIAL SC SCH ×3 (09:16→21:51)
[2020-08-03] MEDS: Aspirin 81 mg Enteric Coated Tablet PER TUBE SCH (10:47)
[2020-08-03] MEDS: Multivitamin W/ Minerals 1 TAB PER TUBE SCH (10:48)
[2020-08-03] MEDS: Magnesium Oxide 400 MG TAB PO SCH ×2 (10:48→21:53)
[2020-08-03] MEDS: Famotidine 40 MG/5 ML Oral Suspension PER TUBE SCH (10:48)
[2020-08-03] MEDS: levETIRAcetam 500 mg/5 ml Oral Solution PER TUBE SCH (10:48)
[2020-08-03 10:58] LABS: Anion Gap 18 mmol/L (10-20); Calc. Creatinine Clearance 0 mL/min (70-130); Calcium 11.7 mg/dL (7.8-10.44); Carbon Dioxide 20 mmol/L (22-29); Chloride 92 mmol/L (98-107); Glucose 87 mg/dL (70-105); Potassium 3.5 mmol/L (3.5-5.1); Sodium 126 mmol/L (136-145)
[2020-08-03 11:13] LABS: BUN (Urea Nitrogen) 127 mg/dL (8.9-20.6)
[2020-08-03 20:50] LABS: Vancomycin, Random 18.7 ug/mL (See Comment)
[2020-08-03] MEDS: Chlorhexidine Gluconate 15 ML UDCUP SSP SCH (21:51)
[2020-08-03] MEDS: Lopinavir/Ritonavir 80 MG/20 MG per ML Oral Solution PER TUBE SCH (21:52)
[2020-08-03] MEDS: Lacosamide 50 mg Tablet PER TUBE SCH (21:52)
[2020-08-03] MEDS: Topiramate 100 MG TAB PER TUBE SCH (21:53)
[2020-08-03] MEDS ORDERED: Vancomycin HCl 500 MG in Sodium Chloride 0.9% 100 ML IVPB SCH (22:00)
[2020-08-03] MEDS ORDERED: Vancomycin 1 GM in Premix Bag 1 BAG IVPB SCH (22:00)
--- NOTE | 2020-08-04 00:46 | CON ---
DATE OF CONSULTATION: 08/03/2020 CONSULTING PHYSICIAN: Cierra Li DO REASON FOR CONSULTATION: Acute kidney injury. REASON FOR ADMISSION: Altered mentation. HISTORY OF PRESENT ILLNESS: This is a 45-year-old male with history of cardioplegia, HIV, hep B, and seizure disorder, came to the hospital with altered mentation and the patient was diagnosed with aspiration pneumonia and is being treated, where he was found to have worsening renal labs. The patient has seen Dr. Salazar in the past, but did not follow up at the clinic. Family is even thinking about hospice and they do not wish to have any dialysis. PAST MEDICAL HISTORY: Positive for cardioplegia, HIV, hepatitis B, and seizure disorder. PAST SURGERY HISTORY: Craniotomy, tracheostomy, and PEG tube placement. HOME MEDICATIONS: Reviewed. ALLERGIES: NO KNOWN DRUG ALLERGIES. SOCIAL HISTORY: Former smoker. No alcohol or illicit drug abuse. FAMILY HISTORY: No history of kidney disease. REVIEW OF SYSTEMS: Could not be obtained due to mental status. PHYSICAL EXAMINATION: GENERAL: This is a well-built male, in no apparent distress, but not responding. VITAL SIGNS: Blood pressure 91/58, pulse 72, respiratory rate 19, and temperature afebrile. HEENT: Atraumatic, normocephalic. NECK: Supple. CV: S1 and S2 heard. RESPIRATORY: Clear. GI: Abdomen is soft. MUSCULOSKELETAL: Negative for pain, swelling. NEUROLOGIC: Responding. LABORATORY DATA: Hemoglobin is 7.4. Potassium is 3.5, sodium is 126, BUN is 127, and creatinine is 6.3. ASSESSMENT AND PLAN: 1. Acute kidney injury on chronic kidney disease stage 4 or 5. BUN actually getting better. Continue hydration, supportive care, and antibiotics. 2. Hyponatremia. 3. Hyperkalemia, better. 4. Edema, controlled. 5. Hypoalbuminemia. 6. Quadriplegia. 7. Anemia. 8. History of hypertension. No acute indication for dialysis. The patient wishes not to have any hemodialysis. The patient's mom was asking questions on peritoneal dialysis at home, but that may be even harder for them to do as the patient is not able to have clinic visits that often. Family is also exploring hospice options. We will continue to follow. Avoid nephrotoxins and renally dose the medications with close monitoring of renal function and electrolytes. Thank you for the consult. We will be happy to follow the case along with you. Job ID: [id number]
[2020-08-04] MEDS: Piperacillin/Tazobactam 2.25 GM in Sodium Chloride 0.9% 100 ML IVPB SCH (05:17)
--- NOTE | 2020-08-04 06:57 | PDOC.FM ---
- Subjective Subjective: Pt has had last secretions overnight. Discussed with mom regular intake. He gets Nepro 3-4 times a day and has 20 mL total of flushes around feeds. He also has 4 flushes throughout the day of 20 mL, so total intake is 140 mL/day of free water. Mother also states that he has high residuals. She says every time he comes into the hospital he is dehydrated. - Objective MAR Reviewed: Yes Vital Signs & Weight: Vital Signs (12 hours) Temp Pulse Resp BP Pulse Ox 08/04/20 04:30 97 F L 60 19 106/67 100 08/04/20 00:30 98 F 58 L 17 99/60 98 08/03/20 19:20 97.9 F 76 20 106/65 99 Weight Weight 68.946 kg I&O: 08/02/20 08/03/20 08/04/20 06:59 06:59 06:59 Intake Total 550 Output Total 1100 Balance -550 Result Diagrams: 08/03/20 06:52 08/03/20 10:22 Phys Exam - Physical Examination Constitutional: NAD film over eyes, dry mucous membranes Trach in place, no phlegm present at this time coarse breath sounds Cardiovascular: RRR Gastrointestinal: soft, non-tender, positive bowel sounds Musculoskeletal: pulses present Unable to follow commands Deviation from normal: decreased skin turgor Dx/Plan (1) Sepsis Code(s): A41.9 - SEPSIS, UNSPECIFIED ORGANISM Status: Acute (2) PNA (pneumonia) Code(s): J18.9 - PNEUMONIA, UNSPECIFIED ORGANISM Status: Acute (3) Hypercalcemia Code(s): E83.52 - HYPERCALCEMIA Status: Acute (4) Hypokalemia Code(s): E87.6 - HYPOKALEMIA Status: Acute (5) Hyponatremia Code(s): E87.1 - HYPO-OSMOLALITY AND HYPONATREMIA Status: Acute (6) Seizure Code(s): R56.9 - UNSPECIFIED CONVULSIONS Status: Acute (7) UTI (urinary tract infection) Status: Acute Qualifiers: Urinary tract infection type: acute cystitis - Plan Plan: This is a 45-year-old male who presents to the emergency department for a chief complaint of altered mental status and difficulty breathing.' 1. Septic Shock 2/2 PNA Vs. UTI -Meds: * Abx: S/p dose of cefepime and vanc in ED. Currently on Vanc and Zosyn, will transition to Augmentin and Azithro * Pressors: Weaned off levophed yesterday -LA .08 -CXR shows bibasilar developing pneumonia. -UA: 2+ micha, 4-6 wbc, no LE, no nitrates.UCx: shows gram neg rods -LR @ 100 -COVID, Flu: Neg 2. Hypokalemia, Resolved K: 2.5 > 3.5 -Will monitor with daily labs 3. Hyponatremia, Improving Na: 123 > 126 -Likely due to dehydration, calcualted totals and was receiving 140 mL/d -Will monitor with daily labs 4. SUSIE on CKD Stage 4-5 Cre: 6.2 > 6.3 -Giving fluids as still producing urine and pt has good urinary output 5. Uremia BUN 144 > 127 -Pt was more somnolent to mother -Will continue to monitor, will likely improve with hydration 6. Elevated Alk phos, likely due to chronic deconditioning Alk Phos: 500 -Consider work up 7. Anemia Hgb: 7.2, baseline 9, MCV: 106 -Vit B12 & Folate obtained -Will monitor, likely chronic due to renal diseas 8. HIV -CD4 ordered -Continue home meds 9.Seizure d/o -Continue home meds -Ativan prn 10. Hx of HepB -Continue home meds 11. Hypercalcemia Ca: 11.2 -Will give fluids and re-evaluate IVF: LR @ 100 Diet: Dietary consulted for PEG feeds, Nepro restarted DVT PPx: Heparin GI PPx: None PCP: RAFFAELE Saravia Code Status: DNAR Dispo: Med inpt, will give fluids today. Increase flushes. Monitor residuals and switch to PO Abx. Likey d/c tomorrow.
[2020-08-04] MEDS ORDERED: Lactated Ringer's 1,000 ML IV SCH (08:00)
[2020-08-04] MEDS: Lactated Ringer's 1,000 ML IV SCH ×3 (08:40→21:34)
[2020-08-04] MEDS: Lopinavir/Ritonavir 80 MG/20 MG per ML Oral Solution PER TUBE SCH ×2 (09:10→21:09)
[2020-08-04] MEDS: Aspirin 81 mg Enteric Coated Tablet PER TUBE SCH (09:11)
[2020-08-04] MEDS: Chlorhexidine Gluconate 15 ML UDCUP SSP SCH ×2 (09:11→21:10)
[2020-08-04] MEDS: levETIRAcetam 500 mg/5 ml Oral Solution PER TUBE SCH (09:11)
[2020-08-04] MEDS: Heparin 5,000 UNITS/ML VIAL SC SCH (09:11)
[2020-08-04] MEDS: Lacosamide 50 mg Tablet PER TUBE SCH ×2 (09:11→21:09)
[2020-08-04] MEDS: Famotidine 40 MG/5 ML Oral Suspension PER TUBE SCH (09:11)
[2020-08-04] MEDS: Magnesium Oxide 400 MG TAB PO SCH ×2 (09:11→21:09)
[2020-08-04] MEDS: Multivitamin W/ Minerals 1 TAB PER TUBE SCH (09:12)
[2020-08-04 10:45] LABS: ALT (SGPT) 50 U/L (8-55); AST (SGOT) 37 U/L (5-34); Albumin 2.1 g/dL (3.5-5.0); Alkaline Phosphatase 238 U/L (40-110); Anion Gap 15 mmol/L (10-20); Bilirubin, Total 1.3 mg/dL (0.2-1.2); Calc. Creatinine Clearance 15 mL/min (70-130); Calcium 11.3 mg/dL (7.8-10.44); Carbon Dioxide 18 mmol/L (22-29); Chloride 101 mmol/L (98-107); Globulin 4.1 g/dL (2.4-3.5); Glucose 73 mg/dL (70-105); Potassium 3.4 mmol/L (3.5-5.1); Protein, Total 6.2 g/dL (6.0-8.3); Sodium 131 mmol/L (136-145)
[2020-08-04] MEDS ORDERED: Azithromycin 200 MG/5 ML Oral Suspension PER TUBE SCH (11:00)
[2020-08-04 11:03] LABS: BUN (Urea Nitrogen) 122 mg/dL (8.9-20.6)
[2020-08-04 11:20] LABS: #Lymphocytes 1.3 thou/uL (1.20-3.40); #Monocytes 0.4 thou/uL (0.11-0.59); #Neutrophils 4.1 thou/uL (1.40-6.50); %Basophils 0.4 % (0.0-1.0); %Eosinophils 0.1 % (0.0-10.0); %Monocytes 6.1 % (0.0-10.0); %Neutrophils 70.4 % (42.0-75.0); Hemoglobin 6.3 g/dL (14.0-18.0); Hypochromia SLIGHT = 6-15 cells (100X) (0-5/hpf); MDiff Complete? YES; Mean Corpuscular HGB CONC 33.4 g/dL (32.0-36.0); Mean Corpuscular Hemoglobin 36.2 pg (27.0-31.0); Mean Platelet Volume 7.8 fL (7.4-10.4); Platelet Count 100 thou/uL (130-400); Platelet Morphology Comment Appears Decreased; Polychromasia SLIGHT = 2-3 cells (100X) (0-2/hpf); RBC Distribution Width 13.6 % (11.5-14.5); Red Blood Cell (RBC) Count 1.74 mill/uL (4.70-6.10); White Blood Cell (WBC) Count 5.8 thou/uL (4.8-10.8)
--- NOTE | 2020-08-04 12:40 | PQF ---
CLINICAL DOCUMENTATION CLARIFICATION FORM: Dear Dr. Cantu Date: 08/04/20 Please exercise your independent, professional judgment in responding to the clarification form. Clinical indicators are provided on the bottom of this form for your review. Please check appropriate box(es): [ ] Sepsis with Septic Shock r/t Chronic Indwelling Smith [ ] Sepsis with Septic Shock NOT r/t Chronic Indwelling Smith [ x ] Sepsis with Septic Shock r/t Other diagnosis:Pneumonia [ ] Unable to determine In addition, please specify: Present on Admission (POA): [ x ] Yes [ ] No [ ] Unable to determine For continuity of documentation, please document condition throughout progress notes and discharge summary. Thank You. 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
--- NOTE | 2020-08-04 15:52 | PRG ---
DATE OF SERVICE: 08/04/2020 SUBJECTIVE: The patient was seen and examined, mom was at the bedside. The patient is nonverbal OBJECTIVE: GENERAL: This is a well-built male, in no apparent distress. VITAL SIGNS: Temperature 97.3. Heart rate 62. Respiratory rate 18. Blood pressure 102/60. HEENT: Atraumatic, normocephalic. NECK: Supple. CV: S1 and S2 heard. RESPIRATORY: Clear. GI: Abdomen is soft. MUSCULOSKELETAL: 1+ edema. DERMATOLOGIC: No skin rash. NEUROLOGICAL: Not responding. LABORATORY DATA: Potassium 3.4, sodium 131, BUN is 122, creatinine is 6.2. ASSESSMENT AND PLAN: 1. Acute kidney injury on chronic kidney stage 4/5. The patient's family refuses to have dialysis and is also interested in hospice care. 2. Hyponatremia. 3. Hyperkalemia. 4. Edema. 5. Hypoalbuminemia. 6. Quadriplegia. 7. Anemia. 8. History of hypertension. Family was given information on hospice and they wanted to discuss the hospice regarding options at home. Family does not think he can tolerate dialysis and will not be able to get dialysis three times a week and home dialysis would be an issue too. We will follow. Job ID: [id number]
[2020-08-04] MEDS ORDERED: Amoxicillin/Potassium Clav 500 MG TAB PO SCH (21:00)
[2020-08-04] MEDS: Amoxicillin/Potassium Clav 500 MG TAB PER TUBE SCH (21:09)
[2020-08-04] MEDS: Topiramate 100 MG TAB PER TUBE SCH (21:10)
[2020-08-05] MEDS: Lactated Ringer's 1,000 ML IV SCH ×2 (05:47→17:20)
--- NOTE | 2020-08-05 06:25 | PDOC.FM ---
- Subjective Subjective: Patient overall doing well. No acute events overnight. Mom in the room to discuss plan with. Discussed dialysis,mom reports she is interested in PD but thinks that it will be too hard to set up HD and getting transportation to the dialysis center. - Objective MAR Reviewed: Yes Vital Signs & Weight: Vital Signs (12 hours) Temp Pulse Resp BP Pulse Ox 08/05/20 05:55 97.4 F L 70 18 156/76 H 100 08/05/20 00:33 97.3 F L 70 18 121/77 100 08/04/20 20:38 97.4 F L 66 18 102/62 100 08/04/20 20:00 100 Weight Admit Weight 68.765 kg Weight 68.946 kg I&O: 08/03/20 08/04/20 08/05/20 06:59 06:59 06:59 Intake Total 550 9736 Output Total 1100 600 Balance -550 9136 Result Diagrams: 08/05/20 08:38 08/05/20 05:52 Phys Exam - Physical Examination Constitutional: NAD Respiratory: no wheezing, no rales, no rhonchi, clear to auscultation bilateral Snoring Cardiovascular: RRR, no significant murmur, no rub Gastrointestinal: soft, non-tender, no distention, positive bowel sounds positive bowel sounds Musculoskeletal: no edema, pulses present Skin: no rash, normal turgor Dx/Plan - Plan Plan: This is a 45-year-old male who presents to the emergency department for a chief complaint of altered mental status and difficulty breathing.' Septic Shock 2/2 PNA Vs. UTI -Meds: * Abx: S/p dose of cefepime and vanc in ED -> Vanc and Zosyn, now on Augmentin and Azithro * Pressors: Weaned off levophed 2/4 -LA .08 -CXR shows bibasilar developing pneumonia. -UA: 2+ micha, 4-6 wbc, no LE, no nitrates.UCx: shows gram neg rods -LR @ 100 -COVID, Flu: Neg Thrombocytopenia - Hold heparin at this time, continue to monitor Hypokalemia K: 2.5 > 3.5 > 3.0 -Will monitor with daily labs Hyponatremia, Improving -Likely due to dehydration, calcualted totals and was receiving 140 mL/d -Will monitor with daily labs SUSIE on CKD Stage 4-5 -Giving fluids as still producing urine and pt has good urinary output Uremia BUN 144 > 127 -Pt was more somnolent to mother -Will continue to monitor, will likely improve with hydration Elevated Alk phos, likely due to chronic deconditioning Alk Phos: 500 -Consider work up Anemia Hgb: 7.2, baseline 9, MCV: 106 -Vit B12 & Folate obtained -Will monitor, likely chronic due to renal diseas HIV -CD4 ordered -Continue home meds -Will evaluate medications given worsening renal fx Seizure d/o -Continue home meds -Ativan prn Hx of HepB -Continue home meds Hypercalcemia Ca: 11.2 -Will give fluids and re-evaluate IVF: LR @ 100--consider stopping, monitor fluid status Diet: Dietary consulted for PEG feeds, Nepro restarted DVT PPx: Heparin GI PPx: None PCP: RAFFAELE Saravia Code Status: DNAR Dispo: Med inpt, will give fluids today. PO Abx. Possible d/c tomorrow. Addendum - Attending - Attending Attestation Date/Time: 08/05/20 2620 I personally evaluated the patient and discussed the management with the team. I agree with the History, Examination, Assessment and Plan documented above with any addition or exceptions noted below. Essentially non communicative and moved RUE. Does not follow commands. Monitor creatinine and K.
[2020-08-05 06:50] LABS: ALT (SGPT) 50 U/L (8-55); AST (SGOT) 34 U/L (5-34); Albumin 2.1 g/dL (3.5-5.0); Alkaline Phosphatase 324 U/L (40-110); Anion Gap 15 mmol/L (10-20); BUN (Urea Nitrogen) 120 mg/dL (8.9-20.6); Calc. Creatinine Clearance 17 mL/min (70-130); Calcium 11.8 mg/dL (7.8-10.44); Carbon Dioxide 21 mmol/L (22-29); Chloride 103 mmol/L (98-107); Globulin 4.3 g/dL (2.4-3.5); Glucose 108 mg/dL (70-105); Protein, Total 6.4 g/dL (6.0-8.3); Sodium 136 mmol/L (136-145)
[2020-08-05] MEDS ORDERED: Potassium Bicarbonate/Cit Ac 20 MEQ TAB PO SCH (08:30)
[2020-08-05 09:05] LABS: #Lymphocytes 1.5 thou/uL (1.20-3.40); #Monocytes 0.6 thou/uL (0.11-0.59); #Neutrophils 4.4 thou/uL (1.40-6.50); %Basophils 0.2 % (0.0-1.0); %Eosinophils 0.3 % (0.0-10.0); %Lymphocytes 23.1 % (21.0-51.0); %Monocytes 8.5 % (0.0-10.0); %Neutrophils 67.8 % (42.0-75.0); Hemoglobin 8.7 g/dL (14.0-18.0); Mean Corpuscular HGB CONC 34.2 g/dL (32.0-36.0); Mean Corpuscular Hemoglobin 35.5 pg (27.0-31.0); Mean Platelet Volume 7.7 fL (7.4-10.4); Platelet Count 95 thou/uL (130-400); RBC Distribution Width 14.6 % (11.5-14.5); Red Blood Cell (RBC) Count 2.44 mill/uL (4.70-6.10); White Blood Cell (WBC) Count 6.5 thou/uL (4.8-10.8)
[2020-08-05] MEDS: levETIRAcetam 500 mg/5 ml Oral Solution PER TUBE SCH (09:11)
[2020-08-05] MEDS: Amoxicillin/Potassium Clav 500 MG TAB PER TUBE SCH ×2 (09:12→22:02)
[2020-08-05] MEDS: Magnesium Oxide 400 MG TAB PO SCH ×2 (09:12→22:00)
[2020-08-05] MEDS: Aspirin 81 mg Enteric Coated Tablet PER TUBE SCH (09:13)
[2020-08-05] MEDS: Multivitamin W/ Minerals 1 TAB PER TUBE SCH (09:13)
[2020-08-05] MEDS: Lacosamide 50 mg Tablet PER TUBE SCH (09:13)
[2020-08-05] MEDS: Chlorhexidine Gluconate 15 ML UDCUP SSP SCH ×2 (09:14→22:01)
[2020-08-05] MEDS: Famotidine 40 MG/5 ML Oral Suspension PER TUBE SCH (09:14)
[2020-08-05] MEDS: Lopinavir/Ritonavir 80 MG/20 MG per ML Oral Solution PER TUBE SCH ×2 (09:32→22:02)
[2020-08-05] MEDS: Azithromycin 200 MG/5 ML Oral Suspension PER TUBE SCH (10:12)
--- NOTE | 2020-08-05 11:59 | PRG ---
DATE OF SERVICE: 08/05/2020 SUBJECTIVE: The patient was seen and examined at bedside. Mom was at the bedside. The patient remains nonverbal. OBJECTIVE: GENERAL: This is a well-built male, in no apparent distress. VITAL SIGNS: Temperature Heart rate 69. Respiratory rate 20. Blood pressure 145/73. HEENT: Atraumatic, normocephalic. NECK: Supple. CV: S1, S2 heard. Rate and rhythm regular. RESPIRATORY: Clear. GI: Abdomen is soft. MUSCULOSKELETAL: 1+ edema. DERMATOLOGIC: No skin rash. NEUROLOGIC: Lethargic. LABORATORY DATA: Potassium 3.0, BUN is 120, creatinine is 5.63. ASSESSMENT AND PLAN: 1. Acute kidney injury on chronic kidney disease, stage 4. Creatinine with improvement. BUN is slow improvement. 2. Hypokalemia. 3. Acidosis. 4. Hypoalbuminemia. 5. Edema. 6. Anemia of chronic disease. 7. History of hypertension. We will give dose of Epogen. Replace potassium. Monitor renal function. We will follow. Job ID: [id number]
[2020-08-05] MEDS ORDERED: EPOETIN ALFA-EPBX (ESRD) 10,000 UNIT/ML VIAL SC SCH (13:00)
[2020-08-05] MEDS: Lacosamide 50 mg Tablet PO SCH (22:01)
[2020-08-05] MEDS: Topiramate 100 MG TAB PER TUBE SCH (22:01)
--- NOTE | 2020-08-05 22:29 | EKG ---
Test Reason : Blood Pressure : / mmHG Vent. Rate : 065 BPM Atrial Rate : 065 BPM P-R Int : 204 ms QRS Dur : 120 ms QT Int : 428 ms P-R-T Axes : 051 084 066 degrees QTc Int : 445 ms Normal sinus rhythm Non-specific intra-ventricular conduction delay Nonspecific T wave abnormality Abnormal ECG Confirmed by RIMA MUÑOZ DO ([id number]), editor in chief newspaper LIDA ROMEO ([id number]) on 08/05/2020 10:29:11 PM Referred By: Confirmed By:RIMA MUÑOZ DO
[2020-08-06] MEDS: Lactated Ringer's 1,000 ML IV SCH (06:01)
--- NOTE | 2020-08-06 08:11 | PDOC.FM ---
- Subjective Subjective: Mother present in room, concerned about hematuria and blood she saw while cleaning his mouth. No other acute concerns. - Objective MAR Reviewed: Yes Vital Signs & Weight: Vital Signs (12 hours) Temp Pulse Resp BP Pulse Ox 08/06/20 01:19 97.3 F L 83 18 109/62 100 08/05/20 21:40 96.0 F L 08/05/20 21:07 94.2 F L 72 18 138/84 100 Weight Admit Weight 68.765 kg Weight 76.975 kg I&O: 08/05/20 08/06/20 08/07/20 06:59 06:59 06:59 Intake Total 4932 2890 Output Total 1350 1900 Balance 3582 990 Result Diagrams: 08/06/20 10:02 08/06/20 10:02 Phys Exam - Physical Examination Constitutional: NAD Tracheostomy in place, no drainage Respiratory: no wheezing, no rales, no rhonchi Cardiovascular: RRR, no significant murmur Gastrointestinal: soft, non-tender, positive bowel sounds PEG tube, no drainage Dx/Plan - Plan Plan: Septic Shock 2/2 PNA Vs. UTI -Meds: * Abx: S/p dose of cefepime and vanc in ED -> Vanc and Zosyn, now on Augmentin and Azithro * Pressors: Weaned off levophed 2/ -LA .08 -CXR shows bibasilar developing pneumonia. 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 -Still producing urine -Nephrology consulted, appreciate recs Uremia BUN 144 > 127 -Pt was more somnolent to mother -Will continue to monitor, will likely improve with hydration Elevated Alk phos, likely due to chronic deconditioning Alk Phos: 500 -Consider work up Anemia Hgb: 7.2, baseline 9, MCV: 106 -Vit B12 & Folate obtained -Will monitor, likely chronic due to renal diseas HIV -CD4 ordered -Continue home meds -Will evaluate medications given worsening renal fx Seizure d/o -Continue home meds -Ativan prn Hx of HepB -Continue home meds Hypercalcemia Ca: 11.2 -Monitor with labs IVF: stop today Diet: Dietary consulted for PEG feeds, Nepro restarted DVT PPx: Heparin GI PPx: None PCP: RAFFAELE Saravia Code Status: DNAR Dispo: Med inpt. PO Abx. Possible d/c today pending nephrology recs. Addendum - Attending - Attending Attestation Date/Time: 08/06/20 8786 I personally evaluated the patient and discussed the management with the team. I agree with the History, Examination, Assessment and Plan documented above with any addition or exceptions noted below. Change antibiotics in light of sensitivies. Discuss goals of care with family. Review with nephrology. ? home if the family just wants to avoid dialysis and intervention vs continued monitoring here.
[2020-08-06] MEDS ORDERED: ENTECAVIR 0.05 MG/ML PER TUBE SCH (09:00)
[2020-08-06] MEDS: Lopinavir/Ritonavir 80 MG/20 MG per ML Oral Solution PER TUBE SCH ×2 (09:47→21:30)
[2020-08-06] MEDS: Famotidine 40 MG/5 ML Oral Suspension PER TUBE SCH (09:47)
[2020-08-06] MEDS: Amoxicillin/Potassium Clav 500 MG TAB PER TUBE SCH (09:49)
[2020-08-06] MEDS: Aspirin 81 mg Enteric Coated Tablet PER TUBE SCH (09:50)
[2020-08-06] MEDS: Chlorhexidine Gluconate 15 ML UDCUP SSP SCH ×2 (09:50→21:30)
[2020-08-06] MEDS: Magnesium Oxide 400 MG TAB PO SCH ×2 (09:51→21:32)
[2020-08-06] MEDS: Multivitamin W/ Minerals 1 TAB PER TUBE SCH (09:52)
[2020-08-06] MEDS: levETIRAcetam 500 mg/5 ml Oral Solution PER TUBE SCH (09:52)
[2020-08-06] MEDS: Lacosamide 50 mg Tablet PO SCH ×2 (10:01→21:31)
[2020-08-06] MEDS: Azithromycin 200 MG/5 ML Oral Suspension PER TUBE SCH ×2 (10:20→12:26)
[2020-08-06 10:22] LABS: Hemoglobin 7.9 g/dL (14.0-18.0); Mean Corpuscular HGB CONC 33.5 g/dL (32.0-36.0); Mean Corpuscular Hemoglobin 34.8 pg (27.0-31.0); Mean Platelet Volume 8.7 fL (7.4-10.4); Platelet Count 79 thou/uL (130-400); RBC Distribution Width 14.7 % (11.5-14.5); Red Blood Cell (RBC) Count 2.26 mill/uL (4.70-6.10); White Blood Cell (WBC) Count 8.6 thou/uL (4.8-10.8)
[2020-08-06 10:35] LABS: Anion Gap 13 mmol/L (10-20); BUN (Urea Nitrogen) 93 mg/dL (8.9-20.6); Calc. Creatinine Clearance 20 mL/min (70-130); Carbon Dioxide 22 mmol/L (22-29); Chloride 106 mmol/L (98-107); Glucose 87 mg/dL (70-105); Potassium 3.5 mmol/L (3.5-5.1); Sodium 137 mmol/L (136-145)
[2020-08-06 10:39] LABS: Anisocytosis SLIGHT = 6-15 cells (100X) (0-5/hpf); Band 3 % (5-11); Lymphocytes 9 % (21-51); MDiff Complete? YES; Macrocytosis SLIGHT = 6-15 cells (100X) (0-5/hpf); Monocytes 3 % (0-10); Neutrophil 66 % (42-75); Platelet Morphology Comment Appears Decreased; Polychromasia MODERATE = 3-4 cells (100X) (0-2/hpf); Reactive Lymphocytes 19 % (0-10); Stomatocytes SLIGHT = 2-5 cells (100X) (0-1/hpf); Target Cells MODERATE= 6-15 cells (100X) (0-1/hpf); Tear Drops SLIGHT = 2-5 cells (100X) (0-1/hpf)
--- NOTE | 2020-08-06 13:14 | PRG ---
DATE OF SERVICE: 08/06/2020 SUBJECTIVE: The patient seen and examined at bedside, awake. Mom was at the bedside and updated. OBJECTIVE: GENERAL: This is a well-built male, in no apparent distress. VITAL SIGNS: Temperature 95, pulse 83, respiratory rate 18, blood pressure 109/65. HEENT: Atraumatic and normocephalic. NECK: Trach present. CV: S1 and S2 heard. RESPIRATORY: Clear. GI: Abdomen is soft. MUSCULOSKELETAL: 1+ edema. DERMATOLOGIC: No skin rash. NEUROLOGIC: Lethargic. LABORATORY DATA: Potassium 3.5, BUN is 93, creatinine is 5.19. ASSESSMENT AND PLAN: 1. Acute kidney injury on chronic kidney disease, stage IV. Renal function with much improvement. 2. Hypokalemia, better. 3. Hypercalcemia. We will give three doses of calcitonin. 4. Hypokalemia. 5. Edema. 6. Anemia of chronic disease. 7. Hypertension. We will check PTH and vitamin D level and we will give a dose of calcitonin and monitor. Job ID: [id number]
[2020-08-06] MEDS: Calcitonin,Salmon,Synthetic 200 UNITS/ML MDV SC SCH ×2 (15:13→21:32)
[2020-08-06] MEDS ORDERED: Ciprofloxacin 500 MG TAB PO SCH ×2 (21:00→23:00)
[2020-08-06] MEDS: Topiramate 100 MG TAB PER TUBE SCH (21:31)
[2020-08-07 06:05] VITALS: TEMP 97.8
--- NOTE | 2020-08-07 07:01 | PDOC.FM ---
- Subjective Subjective: Pt resting comfortably. His mother is at bedside and says that he is back to baseline and she would like to be discharged home. Says his mental status has improved and he is tolerating feeds. - Objective Vital Signs & Weight: Vital Signs (12 hours) Temp Pulse Resp BP Pulse Ox 08/07/20 01:00 97.8 F 76 16 120/80 100 08/06/20 21:28 97.6 F 70 16 119/70 100 Weight Admit Weight 68.765 kg Weight 76.975 kg I&O: 08/06/20 08/07/20 08/08/20 06:59 06:59 06:59 Intake Total 2890 1230 Output Total 1900 750 Balance 990 480 Result Diagrams: 08/07/20 11:45 08/07/20 11:45 Phys Exam - Physical Examination Constitutional: NAD trach collar in place coarse upper airway sounds Cardiovascular: RRR, no significant murmur Gastrointestinal: soft, non-tender Musculoskeletal: no edema non-communicative at baseline Dx/Plan - Plan Plan: Septic Shock 2/2 PNA Vs. UTI -Meds: * Abx: S/p dose of cefepime and vanc in ED -> Vanc and Zosyn, -> Augmentin and Azithro -> now on po Azithro and Cipro * Pressors: Weaned off levophed 2/4 -LA .08 -CXR shows bibasilar developing pneumonia. 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 -Still producing urine -Nephrology consulted, appreciate recs Uremia -BUN 144 > 127 -Pt was more somnolent to mother -Will continue to monitor, will likely improve with hydration Elevated Alk phos, likely due to chronic deconditioning -Alk Phos: 500 -Consider work up Anemia -Hgb: 7.2, baseline 9, MCV: 106 -Vit B12 & Folate obtained -Will monitor, likely chronic due to renal disease HIV -CD4 ordered -Continue home meds -Will evaluate medications given worsening renal fx Seizure d/o -Continue home meds -Ativan prn Hx of HepB -Continue home meds IVF: SL Diet: Dietary consulted for PEG feeds, Nepro restarted DVT PPx: Heparin held, thrombocytopenia GI PPx: None PCP: RAFFAELE Saravia Code Status: DNAR Dispo: Med inpt. Likely to discharge today pending nephro clearance Addendum - Attending - Attending Attestation Date/Time: 08/07/20 1810 I personally evaluated the patient and discussed the management with Dr. Davis. I agree with the History, Examination, Assessment and Plan documented above with any addition or exceptions noted below.
[2020-08-07 07:38] VITALS: BP 116/70
[2020-08-07] MEDS: Famotidine 40 MG/5 ML Oral Suspension PER TUBE SCH (10:04)
[2020-08-07] MEDS: levETIRAcetam 500 mg/5 ml Oral Solution PER TUBE SCH (10:05)
[2020-08-07] MEDS: Azithromycin 200 MG/5 ML Oral Suspension PER TUBE SCH (10:05)
[2020-08-07] MEDS: Lopinavir/Ritonavir 80 MG/20 MG per ML Oral Solution PER TUBE SCH (10:05)
[2020-08-07] MEDS: Chlorhexidine Gluconate 15 ML UDCUP SSP SCH (10:06)
[2020-08-07] MEDS: Multivitamin W/ Minerals 1 TAB PER TUBE SCH (10:06)
[2020-08-07] MEDS: Magnesium Oxide 400 MG TAB PO SCH (10:06)
[2020-08-07] MEDS: Lacosamide 50 mg Tablet PO SCH (10:06)
[2020-08-07] MEDS: Calcitonin,Salmon,Synthetic 200 UNITS/ML MDV SC SCH (10:07)
[2020-08-07 11:47] VITALS: BMI 25.0
--- NOTE | 2020-08-07 12:28 | PRG ---
DATE OF SERVICE: 08/07/2020 SUBJECTIVE: This is a 45-year-old gentleman being seen for end-stage renal disease. OBJECTIVE: GENERAL: The patient is resting. VITAL SIGNS: Afebrile, pulse 75, breathing at 16, blood pressure 116/70. HEENT: Head normocephalic and atraumatic. Eyes intact, no ulcers. Nose intact, no ulcers. Ears intact, no ulcers. NECK: Supple. No JVD. CHEST: Symmetrical and clear. CARDIOVASCULAR: Shows S1 and S2, no rub, no murmur. GASTROINTESTINAL: Abdomen is soft, bowel sounds positive. EXTREMITIES: Show no edema or ulcers. SKIN: Shows no rash or petechiae. MUSCULOSKELETAL: Shows no joint swelling or stiffness. GENITOURINARY: Shows no Funez or CVA tenderness. NEUROLOGIC: Motor intact. Cranial nerves intact. LABORATORY DATA: Reviewed. ASSESSMENT AND PLAN: 1. Chronic kidney disease, stage 5, stable. 2. Hypertension, stable. 3. Hypokalemia, stable. Family does not want to reach dialysis. I will sign off on this patient. Please reconsult as needed. Job ID: [id number]
[2020-08-07 12:48] LABS: #Lymphocytes 1.5 thou/uL (1.20-3.40); #Monocytes 0.6 thou/uL (0.11-0.59); #Neutrophils 5.4 thou/uL (1.40-6.50); %Basophils 0.1 % (0.0-1.0); %Eosinophils 0.3 % (0.0-10.0); %Lymphocytes 19.8 % (21.0-51.0); %Monocytes 8.1 % (0.0-10.0); %Neutrophils 71.7 % (42.0-75.0); Hemoglobin 8.1 g/dL (14.0-18.0); Mean Corpuscular HGB CONC 33.2 g/dL (32.0-36.0); Mean Corpuscular Hemoglobin 35.2 pg (27.0-31.0); Mean Platelet Volume 8.1 fL (7.4-10.4); Platelet Count 84 thou/uL (130-400); RBC Distribution Width 14.9 % (11.5-14.5); Red Blood Cell (RBC) Count 2.29 mill/uL (4.70-6.10); White Blood Cell (WBC) Count 7.5 thou/uL (4.8-10.8)
[2020-08-07 13:04] LABS: Anion Gap 11 mmol/L (10-20); BUN (Urea Nitrogen) 84 mg/dL (8.9-20.6); Calc. Creatinine Clearance 21 mL/min (70-130); Carbon Dioxide 24 mmol/L (22-29); Chloride 105 mmol/L (98-107); Glucose 100 mg/dL (70-105); Magnesium 3.3 mg/dL (1.6-2.6); Potassium 3.2 mmol/L (3.5-5.1); Sodium 137 mmol/L (136-145)
[2020-08-08 09:15] LABS: %CD4 (Helper/Inducer) 11.4 % (30.8-58.5); Absolute CD4 148 /uL (359-1519); Lymphocytes/Gated Cell Count 1.3 x10E3/uL (0.7-3.1); Total Lymphocyte 13 % (Not Estab.); WBC Total Count 10.2 x10E3/uL (3.4-10.8); nRBC 1 % (0 - 0)
--- NOTE | 2020-08-09 04:56 | DIS ---
DATE OF ADMISSION: 08/03/2020 DATE OF DISCHARGE: 08/07/2020 RESIDENT: Destiny Davis MD ADMITTING AND DISCHARGE ATTENDING: Juan Mendez MD CONSULTS: Nephrology, Dr. Salazar; Case Management; Dietary; Wound Care. PROCEDURES: None. PRIMARY DIAGNOSIS: Septic shock secondary to aspiration pneumonia. SECONDARY DIAGNOSES: 1. Acute renal failure. 2. Hypokalemia. 3. Hypercalcemia. 4. Hyponatremia. 5. HIV. 6. Quadriplegia. 7. Seizure disorder. 8. History of hepatitis C. 9. Thrombocytopenia. DISCHARGE MEDICATIONS: 1. Azithromycin 500 mg daily x1. 2. Ciprofloxacin 500 mg per tube daily x4 days. 3. Ciprofloxacin 0.3% ophthalmic solution, one drop in each eye four times a day x5 days. 4. Albuterol nebs p.r.n. 5. 81 mg aspirin daily. 6. Zyrtec 10 mg daily. 7. Chlorhexidine 15 mL b.i.d. 8. Tivicay 50 mg daily. 9. Entecavir 10 mL every three days. 10. Hydrocortisone 10 mg daily. 11. Vimpat 200 mg b.i.d. 12. Lamivudine 15 mL per tube daily. 13. Keppra 500 mg daily. 14. Lopinavir/ritonavir 5 mL per tube b.i.d. 15. Magnesium oxide 400 mg b.i.d. 16. Multivitamin one tablet daily. 17. Nepro one can t.i.d. 18. Topiramate 100 mg per tube at bedtime. DISCONTINUED MEDICATIONS: None. HISTORY OF PRESENT ILLNESS: The patient is a 45-year-old male with history of quadriplegia, status post trach and PEG, who presents to emergency department for chief complaint of altered mental status and difficulty breathing. His mother, who is his drug abuse social worker states that she noticed increase in secretions from his trach from clear to a brown color. She also noted that he seemed to be having aspiration. The patient is noncommunicative at baseline. In the ED, he was noted to be hypotensive, so a right femoral line was placed to start Levophed. Chest x-ray showed mild bibasilar opacities, which could represent developing pneumonia. He was started on cefepime, vancomycin, and Bactrim, and given a saline bolus. HOSPITAL COURSE: The patient was admitted for septic shock, likely secondary to pneumonia, was treated with IV antibiotics with renal dosing. Nephrology was consulted and mother stated that they were not interested in dialysis at this time. Throughout hospital day with adequate fluid resuscitation, the patient's kidney function improved along with improvement in his electrolyte disturbances. He was able to be weaned off Levophed after the first day and was able to be transferred to the floor. His antibiotics were adjusted once his urine culture came back. Urine culture showed growth of Klebsiella as the main organism and also the second organism, Pseudomonas grew as well. He was transitioned from IV to oral antibiotics in preparation for his discharge home. Of note, Palliative Care met with the patient's mother and she stated that they had been on hospice in the past, but currently not on hospice. She was still considering hospice, but her goal is to get him well enough to go back to live with the rest of their family in [facility]. Discussed out of hospital DNR and Mom was unsure if they had one. Mother continued to say that they were not interested in dialysis at this time. LABORATORY DATA: White blood cell 9, hemoglobin 9.1, MCV 104, platelets 192, bands 2%. Sodium 123, potassium 2.5, BUN 144, creatinine 6.2. Lactic acid 0.8. UA; positive for red blood cells, white blood cells, and bacteria. DISPOSITION: Stable. DISCHARGE INSTRUCTIONS: 1. Location: Home. 2. Diet: PEG tube feeds. 3. Activity: As tolerated. 4. Followup: With Nephrology in 7 days and primary care physician within 7 days. Job ID: [id number]
== END 2020-08-07 19:35 | disposition home or self-care (01) | DRG 871 ==
LOC: ERS 20:52 → ERHOLD 08-03 00:05 → T4-A 08-03 19:08
PROVIDERS: ADMIT Student in an Organized Health Care Education/Training Program; ATTEND Family Medicine
PROC: 3E033XZ Introduction of Vasopressor into Peripheral Vein, Percutaneous Approach (ICD-10-PCS; principal; 2020-08-03)
DX: A41.9 Sepsis, unspecified organism (principal); R65.21 Severe sepsis with septic shock; J69.0 Pneumonitis due to inhalation of food and vomit; Z66 Do not resuscitate; G82.50 Quadriplegia, unspecified; N18.6 End stage renal disease; N17.9 Acute kidney failure, unspecified; E87.1 Hypo-osmolality and hyponatremia; N30.00 Acute cystitis without hematuria; I12.0 Hypertensive chronic kidney disease with stage 5 chronic kidney disease or end stage renal disease; Z20.822 Contact with and (suspected) exposure to COVID-19; Z21 Asymptomatic human immunodeficiency virus [HIV] infection status; E87.6 Hypokalemia; D63.1 Anemia in chronic kidney disease; D69.6 Thrombocytopenia, unspecified; G40.909 Epilepsy, unspecified, not intractable, without status epilepticus; B96.1 Klebsiella pneumoniae [K. pneumoniae] as the cause of diseases classified elsewhere; B96.5 Pseudomonas (aeruginosa) (mallei) (pseudomallei) as the cause of diseases classified elsewhere; E83.52 Hypercalcemia; E88.09 Other disorders of plasma-protein metabolism, not elsewhere classified; Z86.19 Personal history of other infectious and parasitic diseases
CPT/HCPCS: 0240U; 36415; 36416; 36430; 36556; 71045; 80048; 80053; 80202; 81003; 81015; 82306; 82607; 82746; 83605; 83735; 83970; 84145; 85025; 85048; 86361; 86850; 86900; 86901; 87040; 87077; 87086; 87186; 93005; 96365; 96366; 96367; 96368; 96375; C9399; J0630; J0692; J1642; J1644; J2060; J2543; J3370; J3480; J3490; J7050; J7070; P9016; Q5105

== ENCOUNTER 2020-10-17 18:02 | Inpatient (IN) | payer OTHER ==
[2020-10-17] MEDS ORDERED: Piperacillin/Tazobactam 4.5 GM VIAL ONE (18:16)
[2020-10-17] MEDS ORDERED: levETIRAcetam in NS 100 ML ONE (18:44)
[2020-10-17] MEDS ORDERED: Norepinephrine 8 MG/0.9% NS 250 ML ONE (18:49)
[2020-10-17] MEDS ORDERED: Cefepime 2 GM VIAL ONE (18:57)
[2020-10-17] MEDS ORDERED: Vancomycin 1 GM/200 ML BAG ONE (18:57)
[2020-10-17] MEDS ORDERED: Ondansetron PF 4 MG/2 ML Vial ONE ×2 (18:57→19:09)
[2020-10-17 19:15] LABS: Hemoglobin 7.5 g/dL (14.0-18.0); Mean Corpuscular Hemoglobin 33.4 pg (27.0-31.0); Mean Platelet Volume 7.7 fL (7.4-10.4); Platelet Count 279 thou/uL (130-400); Red Blood Cell (RBC) Count 2.25 mill/uL (4.70-6.10)
[2020-10-17] MEDS ORDERED: Sodium Bicarb 50 MEQ/50 ML Abboject 8.4% SYRINGE ONE ×2 (19:18→19:19)
[2020-10-17 19:31] LABS: Actual Bicarbonate (HCO3a) 17.2 mEq/L (22-28); Analyzer IN Cardio ER; Base Excess (BEa) -8.1 mEq/L (-2.0 to +3.0); CO2 Tension 33.6 mmHg (35.0-45.0); Calcium, Ionized (arterial) 1.11 mmol/L (1.12-1.30); Carboxyhemoglobin (COHb) 0.3 gm% (0.0-3.0); Potassium - ABG Lab 3.63 mmol/L (3.70-5.30); pH, Arterial 7.33 (7.35-7.45)
[2020-10-17 19:34] LABS: Hemoglobin (Hb) 5.8 g/dL (14.0-18.0); Puncture Site RFA
[2020-10-17 19:34] LABS: ALT (SGPT) 52 U/L (8-55); AST (SGOT) 58 U/L (5-34); Alkaline Phosphatase 173 U/L (40-110); Anion Gap 20 mmol/L (10-20); BUN (Urea Nitrogen) 80 mg/dL (8.9-20.6); Bilirubin, Total 0.5 mg/dL (0.2-1.2); CK (CPK) 14 U/L (30-200); Calc. Creatinine Clearance 0 mL/min (70-130); Calcium 8.3 mg/dL (7.8-10.44); Carbon Dioxide 11 mmol/L (22-29); Chloride 119 mmol/L (98-107); Globulin 3.3 g/dL (2.4-3.5); Glucose 123 mg/dL (70-105); Potassium 4.3 mmol/L (3.5-5.1); Protein, Total 5.3 g/dL (6.0-8.3); Sodium 146 mmol/L (136-145)
[2020-10-17 19:37] LABS: Anisocytosis SLIGHT = 6-15 cells (100X) (0-5/hpf); Band 1 % (5-11); Lymphocytes 28 % (21-51); MDiff Complete? YES; Macrocytosis SLIGHT = 6-15 cells (100X) (0-5/hpf); Monocytes 5 % (0-10); Neutrophil 65 % (42-75); Nucleated RBC 3 % (0); Platelet Morphology Comment Appears Adequate; Polychromasia SLIGHT = 2-3 cells (100X) (0-2/hpf); Reactive Lymphocytes 1 % (0-10); White Blood Cell (WBC) Count 8.1 thou/uL (4.8-10.8)
[2020-10-17] MEDS ORDERED: Pantoprazole 40 MG VIAL ONE (19:40)
[2020-10-17 19:46] LABS: Lipase 1431 U/L (8-78)
[2020-10-17 19:57] LABS: CKMB 0.8 ng/mL (0-6.6)
[2020-10-17 20:02] LABS: Bilirubin Negative (Negative); Blood, Urine Large (Negative); Glucose, Urine (Dipstick) Negative (Negative); Ketone, Urine Trace mg/dL (Negative); Leukocyte Trace (Negative); Nitrite Negative (Negative); Protein, Urine (Dipstick) 100 mg/dL (Neg-Trace); Urobilinogen 0.2 mg/dL (Less than 2)
[2020-10-17 20:08] LABS: Clarity Hazy (Clear)
[2020-10-17 20:10] LABS: RBC/HPF 21-50 HPF (0-3)
[2020-10-17 20:11] LABS: Bacteria/HPF 2+ HPF (None Seen); Squamous Epithelial 0-3 HPF (0-3)
[2020-10-17 20:12] LABS: Other Microscopic Description Less than 2 mL rec'd
[2020-10-17] MEDS ORDERED: Ondansetron PF 4 MG/2 ML Vial IVP PRN (20:20)
[2020-10-17 20:57] LABS: SARS-CoV-2 NAA Rapid Test Not Detected (NotDetected)
[2020-10-17] MEDS ORDERED: Norepinephrine 8 MG/0.9% NS 250 ML IVPB SCH (21:00)
[2020-10-17] MEDS ORDERED: Pantoprazole 40 MG VIAL IVP SCH ×2 (21:00→21:15)
[2020-10-17] MEDS ORDERED: Hydrocortisone Sod Succ/PF 100 mg/2 ml Vial IVP SCH (21:30)
[2020-10-17 22:54] LABS: Lactic Acid 7.9 mmol/L (0.5-2.2)
[2020-10-17] MEDS ORDERED: Pantoprazole 80 MG in Sodium Chloride 0.9% 100 ML IVPB SCH (23:00)
[2020-10-17] MEDS: Sodium Chloride 0.9% 1,000 ML IV SCH (23:42)
[2020-10-18 00:47] VITALS: BMI 22.5
[2020-10-18 05:53] LABS: Band 6 % (5-11); Eosinophils 2 % (0-10); MDiff Complete? YES; Metamyelocyte 3 % (0-0); Monocytes 5 % (0-10); Nucleated RBC 4 % (0); Platelet Morphology Comment Appears Adequate; Reactive Lymphocytes 1 % (0-10)
[2020-10-18 05:53] LABS: Albumin 1.8 g/dL (3.5-5.0); Anion Gap 21 mmol/L (10-20); Carbon Dioxide 12 mmol/L (22-29); Chloride 121 mmol/L (98-107); Glucose 87 mg/dL (70-105); Potassium 3.6 mmol/L (3.5-5.1); Protein, Total 4.8 g/dL (6.0-8.3); Sodium 150 mmol/L (136-145); Triglycerides 78 mg/dL (Less than 150)
[2020-10-18 05:54] LABS: ALT (SGPT) 292 U/L (8-55); AST (SGOT) 344 U/L (5-34); Alkaline Phosphatase 117 U/L (40-110); BUN (Urea Nitrogen) 89 mg/dL (8.9-20.6); Bilirubin, Total 1.2 mg/dL (0.2-1.2); Calc. Creatinine Clearance 16 mL/min (70-130); Cardiac Risk 3.6 (Less than 4.5); Cholesterol 98 mg/dl (< 200 Desired); HDL Cholesterol 27 mg/dL (>60 Neg Risk); LDL Cholesterol, Calculated 55 mg/dL
[2020-10-18 06:01] LABS: Lymphocytes 20 % (21-51); Neutrophil 68 % (42-75)
[2020-10-18 06:28] LABS: Hemoglobin 11.3 g/dL (14.0-18.0); Mean Corpuscular HGB CONC 32.4 g/dL (32.0-36.0); Mean Corpuscular Hemoglobin 31.2 pg (27.0-31.0); Mean Corpuscular Volume 96.3 fL (78.0-98.0); Mean Platelet Volume 8.7 fL (7.4-10.4); Platelet Count 222 thou/uL (130-400); RBC Distribution Width 16.2 % (11.5-14.5); Red Blood Cell (RBC) Count 3.61 mill/uL (4.70-6.10); White Blood Cell (WBC) Count 13.8 thou/uL (4.8-10.8)
[2020-10-18] MEDS: Sodium Chloride 0.9% 1,000 ML IV SCH ×3 (07:49→18:11)
[2020-10-18] MEDS: Hydrocortisone Sod Succ/PF 100 mg/2 ml Vial IVP SCH ×4 (07:49→21:15)
[2020-10-18] MEDS: Pantoprazole 80 MG, Admixture Fee 1 EACH in Sodium Chloride 0.9% 100 ML IVPB SCH ×2 (09:37→18:11)
[2020-10-18] MEDS ORDERED: Albuterol Sulfate 2.5 mg/3 ml Neb NEB PRN (11:00)
[2020-10-18] MEDS ORDERED: levETIRAcetam 500 mg/5 ml Oral Solution PO SCH (11:15)
[2020-10-18] MEDS ORDERED: Topiramate 25 MG TAB PO SCH (11:15)
[2020-10-18] MEDS ORDERED: levETIRAcetam 500 mg/5 ml Oral Solution PER TUBE SCH ×2 (11:30→21:00)
[2020-10-18] MEDS ORDERED: Sodium Bicarb 50 MEQ/50 ML Abboject 8.4% SYRINGE IVP SCH ×3 (11:30→22:45)
[2020-10-18] MEDS ORDERED: Lacosamide 50 mg Tablet PO SCH (11:45)
[2020-10-18 15:52] LABS: Anion Gap 20 mmol/L (10-20); BUN (Urea Nitrogen) 90 mg/dL (8.9-20.6); Calc. Creatinine Clearance 17 mL/min (70-130); Calcium 7.2 mg/dL (7.8-10.44); Carbon Dioxide 12 mmol/L (22-29); Chloride 124 mmol/L (98-107); Glucose 80 mg/dL (70-105); Potassium 3.9 mmol/L (3.5-5.1); Sodium 152 mmol/L (136-145)
[2020-10-18 16:00] LABS: Hemoglobin 8.9 g/dL (14.0-18.0); Mean Corpuscular HGB CONC 34.4 g/dL (32.0-36.0); Mean Corpuscular Hemoglobin 32.5 pg (27.0-31.0); Mean Corpuscular Volume 94.4 fL (78.0-98.0); Mean Platelet Volume 8.5 fL (7.4-10.4); Platelet Count 99 thou/uL (130-400); RBC Distribution Width 16.2 % (11.5-14.5); Red Blood Cell (RBC) Count 2.75 mill/uL (4.70-6.10)
[2020-10-18] MEDS: Sodium Bicarbonate Tab 325 MG TAB PER TUBE SCH ×2 (16:26→21:09)
[2020-10-18] MEDS ORDERED: Sodium Bicarbonate 150 MEQ in Dextrose 5% in Water 1,000 ML IV SCH (18:15)
[2020-10-18] MEDS ORDERED: Cefepime 2 GM in Sodium Chloride 0.9% 100 ML IVPB SCH (20:00)
[2020-10-18] MEDS ORDERED: Vancomycin 1 GM in Premix Bag 1 BAG IVPB SCH (20:00)
[2020-10-18] MEDS: Topiramate 25 MG TAB PER TUBE SCH (21:10)
[2020-10-18] MEDS: levETIRAcetam 500 mg/5 ml Oral Solution PER TUBE SCH (21:12)
[2020-10-18] MEDS: Lacosamide 50 mg Tablet PER TUBE SCH (22:08)
[2020-10-18] MEDS: Lopinavir/Ritonavir 80 MG/20 MG per ML Oral Solution PER TUBE SCH (22:09)
[2020-10-18 22:11] LABS: Vancomycin, Random 22.9 ug/mL (See Comment)
[2020-10-18 22:31] LABS: Anion Gap 22 mmol/L (10-20); BUN (Urea Nitrogen) 94 mg/dL (8.9-20.6); Calc. Creatinine Clearance 16 mL/min (70-130); Calcium 7.2 mg/dL (7.8-10.44); Carbon Dioxide 13 mmol/L (22-29); Chloride 123 mmol/L (98-107); Glucose 74 mg/dL (70-105); Potassium 3.8 mmol/L (3.5-5.1); Sodium 154 mmol/L (136-145)
[2020-10-18] MEDS: Pantoprazole 40 MG VIAL IVP SCH (23:02)
[2020-10-19] MEDS: Sodium Chloride 0.9% 1,000 ML IV SCH (02:24)
[2020-10-19] MEDS: Hydrocortisone Sod Succ/PF 100 mg/2 ml Vial IVP SCH ×4 (04:50→21:04)
[2020-10-19 05:38] LABS: ALT (SGPT) 215 U/L (8-55); AST (SGOT) 230 U/L (5-34); Albumin 1.4 g/dL (3.5-5.0); Alkaline Phosphatase 60 U/L (40-110); Anion Gap 24 mmol/L (10-20); BUN (Urea Nitrogen) 106 mg/dL (8.9-20.6); Bilirubin, Total 0.8 mg/dL (0.2-1.2); Calc. Creatinine Clearance 15 mL/min (70-130); Calcium 6.9 mg/dL (7.8-10.44); Carbon Dioxide 12 mmol/L (22-29); Chloride 125 mmol/L (98-107); Globulin 2.2 g/dL (2.4-3.5); Glucose 90 mg/dL (70-105); Lipase 301 U/L (8-78); Potassium 3.7 mmol/L (3.5-5.1); Protein, Total 3.6 g/dL (6.0-8.3); Sodium 157 mmol/L (136-145)
[2020-10-19 05:55] LABS: Anisocytosis SLIGHT = 6-15 cells (100X) (0-5/hpf); Band 18 % (5-11); Lymphocytes 8 % (21-51); MDiff Complete? YES; Mean Corpuscular HGB CONC 33.8 g/dL (32.0-36.0); Mean Corpuscular Volume 94.6 fL (78.0-98.0); Mean Platelet Volume 8.2 fL (7.4-10.4); Metamyelocyte 2 % (0-0); Monocytes 3 % (0-10); Neutrophil 68 % (42-75); Platelet Count 103 thou/uL (130-400); Platelet Morphology Comment Appears Decreased; Polychromasia SLIGHT = 2-3 cells (100X) (0-2/hpf); RBC Distribution Width 16.7 % (11.5-14.5); Reactive Lymphocytes 1 % (0-10); Red Blood Cell (RBC) Count 1.86 mill/uL (4.70-6.10); White Blood Cell (WBC) Count 14.5 thou/uL (4.8-10.8)
[2020-10-19] MEDS ORDERED: Sodium Chloride 0.9% 1,000 ML IV SCH (06:37)
[2020-10-19 07:55] VITALS: BP 105/78
[2020-10-19] MEDS: Topiramate 25 MG TAB PER TUBE SCH ×2 (09:16→20:54)
[2020-10-19] MEDS: levETIRAcetam 500 mg/5 ml Oral Solution PER TUBE SCH ×2 (09:16→20:54)
[2020-10-19] MEDS: Pantoprazole 40 MG VIAL IVP SCH ×2 (09:20→22:46)
[2020-10-19] MEDS ORDERED: Dextrose 5 % And 0.9 % NaCl 1,000 ML IV SCH (10:00)
[2020-10-19] MEDS: Sodium Bicarbonate Tab 325 MG TAB PER TUBE SCH ×3 (10:13→22:46)
[2020-10-19] MEDS: Lacosamide 50 mg Tablet PER TUBE SCH ×2 (10:13→20:53)
[2020-10-19 11:04] LABS: Vancomycin, Random 18.8 ug/mL (See Comment)
[2020-10-19] MEDS: Lopinavir/Ritonavir 80 MG/20 MG per ML Oral Solution PER TUBE SCH ×2 (11:06→20:54)
[2020-10-19] MEDS: Sodium Bicarbonate 150 MEQ in Dextrose 5% in Water 1,000 ML IV SCH (11:40)
[2020-10-19] MEDS ORDERED: Vancomycin 1 GM in Premix Bag 1 BAG IVPB SCH ×2 (12:00→18:00)
[2020-10-19 14:54] LABS: Anion Gap 22 mmol/L (10-20); BUN (Urea Nitrogen) 111 mg/dL (8.9-20.6); Calc. Creatinine Clearance 15 mL/min (70-130); Calcium 6.9 mg/dL (7.8-10.44); Carbon Dioxide 13 mmol/L (22-29); Chloride 125 mmol/L (98-107); Glucose 149 mg/dL (70-105); Potassium 3.9 mmol/L (3.5-5.1); Sodium 156 mmol/L (136-145)
[2020-10-19 15:12] LABS: %CD4 (Helper/Inducer) 7.5 % (30.8-58.5); Absolute CD4 135 /uL (359-1519); Lymphocytes/Gated Cell Count 1.8 x10E3/uL (0.7-3.1); Total Lymphocyte 11 % (Not Estab.); WBC Total Count 16.3 x10E3/uL (3.4-10.8); nRBC 6 % (0 - 0)
[2020-10-19] MEDS ORDERED: PROPOFOL 200 MG/20 ML VIAL ONE (15:46)
[2020-10-19 17:16] LABS: Hemoglobin 9.6 g/dL (14.0-18.0); Platelet Count 101 thou/uL (130-400)
[2020-10-19] MEDS: Cefepime 1 GM in Sodium Chloride 0.9% 100 ML IVPB SCH (19:59)
[2020-10-19 20:50] LABS: Anion Gap 18 mmol/L (10-20); BUN (Urea Nitrogen) 118 mg/dL (8.9-20.6); Calc. Creatinine Clearance 15 mL/min (70-130); Calcium 6.4 mg/dL (7.8-10.44); Carbon Dioxide 16 mmol/L (22-29); Chloride 125 mmol/L (98-107); Glucose 134 mg/dL (70-105); Potassium 3.6 mmol/L (3.5-5.1); Sodium 155 mmol/L (136-145)
[2020-10-20] MEDS: Sodium Bicarbonate 150 MEQ in Dextrose 5% in Water 1,000 ML IV SCH (00:17)
[2020-10-20] MEDS: Hydrocortisone Sod Succ/PF 100 mg/2 ml Vial IVP SCH ×3 (03:52→16:18)
[2020-10-20 04:25] LABS: ALT (SGPT) 215 U/L (8-55); AST (SGOT) 190 U/L (5-34); Albumin 1.3 g/dL (3.5-5.0); Alkaline Phosphatase 57 U/L (40-110); Anion Gap 17 mmol/L (10-20); Bilirubin, Total 0.7 mg/dL (0.2-1.2); Calc. Creatinine Clearance 14 mL/min (70-130); Calcium 6.4 mg/dL (7.8-10.44); Carbon Dioxide 18 mmol/L (22-29); Chloride 121 mmol/L (98-107); Globulin 1.8 g/dL (2.4-3.5); Glucose 172 mg/dL (70-105); Potassium 3.2 mmol/L (3.5-5.1); Protein, Total 3.1 g/dL (6.0-8.3); Sodium 153 mmol/L (136-145)
[2020-10-20 04:36] LABS: BUN (Urea Nitrogen) 98 mg/dL (8.9-20.6)
[2020-10-20 04:40] LABS: Anion Gap 18 mmol/L (10-20); BUN (Urea Nitrogen) 124 mg/dL (8.9-20.6); Calc. Creatinine Clearance 15 mL/min (70-130); Calcium 6.4 mg/dL (7.8-10.44); Carbon Dioxide 16 mmol/L (22-29); Chloride 121 mmol/L (98-107); Glucose 175 mg/dL (70-105); Potassium 3.2 mmol/L (3.5-5.1); Sodium 152 mmol/L (136-145)
[2020-10-20 04:55] LABS: Band 9 % (5-11); Hemoglobin 6.3 g/dL (14.0-18.0); Lymphocytes 4 % (21-51); MDiff Complete? YES; Mean Corpuscular HGB CONC 34.8 g/dL (32.0-36.0); Mean Corpuscular Hemoglobin 32.7 pg (27.0-31.0); Mean Corpuscular Volume 93.9 fL (78.0-98.0); Mean Platelet Volume 8.6 fL (7.4-10.4); Monocytes 1 % (0-10); Neutrophil 86 % (42-75); Nucleated RBC 2 % (0); Platelet Count 82 thou/uL (130-400); Platelet Morphology Comment Appears Decreased; Polychromasia SLIGHT = 2-3 cells (100X) (0-2/hpf); RBC Distribution Width 14.6 % (11.5-14.5); Red Blood Cell (RBC) Count 1.92 mill/uL (4.70-6.10); White Blood Cell (WBC) Count 9.8 thou/uL (4.8-10.8)
[2020-10-20] MEDS ORDERED: Electrolyte Replacement Protocol 1 EACH FS SCH (06:17)
[2020-10-20] MEDS ORDERED: Dextrose 5% in Water 1,000 ML IV SCH (06:50)
[2020-10-20] MEDS ORDERED: Potassium Chloride 20 MEQ TAB PO SCH (07:30)
[2020-10-20 07:37] LABS: Reticulocyte Count 3.7 % (0.5-1.5)
[2020-10-20 07:58] LABS: Anion Gap 19 mmol/L (10-20); Calc. Creatinine Clearance 15 mL/min (70-130); Calcium 6.3 mg/dL (7.8-10.44); Carbon Dioxide 18 mmol/L (22-29); Chloride 118 mmol/L (98-107); Glucose 164 mg/dL (70-105); Potassium 3.1 mmol/L (3.5-5.1); Sodium 152 mmol/L (136-145)
[2020-10-20 08:10] LABS: BUN (Urea Nitrogen) 117 mg/dL (8.9-20.6)
[2020-10-20] MEDS: Pantoprazole 40 MG VIAL IVP SCH ×2 (08:46→20:49)
[2020-10-20] MEDS: Sodium Bicarbonate Tab 325 MG TAB PER TUBE SCH ×3 (09:00→20:48)
[2020-10-20] MEDS ORDERED: Potassium Chloride 40 MEQ in Premix Bag 1 BAG IVPB SCH (09:00)
[2020-10-20] MEDS ORDERED: Vancomycin HCl 500 MG VIAL IVPB SCH (11:30)
[2020-10-20 13:56] LABS: INR-International Normal Ratio 1.6; PTT 38.8 sec (22.9-36.1); Prothrombin Time 19.2 sec (12.0-14.7)
[2020-10-20 14:09] LABS: Anion Gap 17 mmol/L (10-20); Calc. Creatinine Clearance 15 mL/min (70-130); Calcium 6.1 mg/dL (7.8-10.44); Carbon Dioxide 18 mmol/L (22-29); Chloride 119 mmol/L (98-107); Glucose 178 mg/dL (70-105); Potassium 3.7 mmol/L (3.5-5.1); Sodium 150 mmol/L (136-145)
[2020-10-20 14:21] LABS: BUN (Urea Nitrogen) 115 mg/dL (8.9-20.6)
[2020-10-20] MEDS: Lopinavir/Ritonavir 80 MG/20 MG per ML Oral Solution PER TUBE SCH ×2 (15:40→20:47)
[2020-10-20] MEDS: levETIRAcetam 500 mg/5 ml Oral Solution PER TUBE SCH ×2 (15:41→20:47)
[2020-10-20] MEDS: Topiramate 25 MG TAB PER TUBE SCH ×2 (15:42→20:48)
[2020-10-20] MEDS ORDERED: Magnesium 2 GM/50 ML 2 GM in Premix Bag 1 BAG IVPB SCH (15:45)
[2020-10-20] MEDS: Lacosamide 50 mg Tablet PER TUBE SCH ×2 (15:53→20:47)
[2020-10-20] MEDS: Dextrose 5% in Water 1,000 ML IV SCH ×2 (15:57→19:36)
[2020-10-20] MEDS ORDERED: Vancomycin 1 GM in Premix Bag 1 BAG IVPB SCH (18:00)
[2020-10-20 18:13] LABS: Vancomycin, Trough 29.2 ug/mL
[2020-10-20 19:34] LABS: Anion Gap 19 mmol/L (10-20); Calc. Creatinine Clearance 15 mL/min (70-130); Carbon Dioxide 17 mmol/L (22-29); Chloride 117 mmol/L (98-107); Glucose 163 mg/dL (70-105); Potassium 3.6 mmol/L (3.5-5.1); Sodium 149 mmol/L (136-145)
[2020-10-20 19:45] LABS: BUN (Urea Nitrogen) 122 mg/dL (8.9-20.6)
[2020-10-20] MEDS: Cefepime 1 GM in Sodium Chloride 0.9% 100 ML IVPB SCH (20:11)
[2020-10-21] MEDS: Hydrocortisone Sod Succ/PF 100 mg/2 ml Vial IVP SCH ×5 (00:21→21:54)
[2020-10-21] MEDS: Dextrose 5% in Water 1,000 ML IV SCH (00:51)
[2020-10-21 01:25] LABS: Hemoglobin 7.1 g/dL (14.0-18.0); Platelet Count 56 thou/uL (130-400)
[2020-10-21 01:39] LABS: Anion Gap 15 mmol/L (10-20); Calc. Creatinine Clearance 15 mL/min (70-130); Carbon Dioxide 17 mmol/L (22-29); Chloride 115 mmol/L (98-107); Glucose 174 mg/dL (70-105); Potassium 3.2 mmol/L (3.5-5.1); Sodium 144 mmol/L (136-145)
[2020-10-21 01:51] LABS: BUN (Urea Nitrogen) 125 mg/dL (8.9-20.6)
[2020-10-21 05:16] LABS: ALT (SGPT) 133 U/L (8-55); AST (SGOT) 88 U/L (5-34); Albumin 1.4 g/dL (3.5-5.0); Alkaline Phosphatase 57 U/L (40-110); Anion Gap 16 mmol/L (10-20); Bilirubin, Total 0.9 mg/dL (0.2-1.2); Calc. Creatinine Clearance 15 mL/min (70-130); Calcium 6.1 mg/dL (7.8-10.44); Carbon Dioxide 16 mmol/L (22-29); Chloride 112 mmol/L (98-107); Globulin 1.9 g/dL (2.4-3.5); Glucose 184 mg/dL (70-105); Potassium 3.1 mmol/L (3.5-5.1); Protein, Total 3.3 g/dL (6.0-8.3); Sodium 141 mmol/L (136-145)
[2020-10-21 05:27] LABS: BUN (Urea Nitrogen) 119 mg/dL (8.9-20.6)
[2020-10-21 06:02] LABS: Anisocytosis SLIGHT = 6-15 cells (100X) (0-5/hpf); Band 21 % (5-11); Hemoglobin 6.6 g/dL (14.0-18.0); Lymphocytes 6 % (21-51); MDiff Complete? YES; Mean Corpuscular HGB CONC 35.6 g/dL (32.0-36.0); Mean Corpuscular Hemoglobin 30.7 pg (27.0-31.0); Mean Corpuscular Volume 86.3 fL (78.0-98.0); Mean Platelet Volume 8.7 fL (7.4-10.4); Monocytes 2 % (0-10); Neutrophil 71 % (42-75); Nucleated RBC 1 % (0); Platelet Count 56 thou/uL (130-400); RBC Distribution Width 14.8 % (11.5-14.5); Red Blood Cell (RBC) Count 2.15 mill/uL (4.70-6.10); White Blood Cell (WBC) Count 14.5 thou/uL (4.8-10.8)
[2020-10-21] MEDS: Lactated Ringer's 1,000 ML IV SCH ×2 (08:44→16:43)
[2020-10-21] MEDS: Pantoprazole 40 MG VIAL IVP SCH ×2 (11:22→20:55)
[2020-10-21] MEDS: Potassium Chloride 20 MEQ in Premix Bag 1 BAG IVPB SCH ×2 (11:23→12:37)
[2020-10-21] MEDS: Sodium Bicarbonate Tab 325 MG TAB PER TUBE SCH ×3 (11:24→20:54)
[2020-10-21] MEDS: levETIRAcetam 500 mg/5 ml Oral Solution PER TUBE SCH ×2 (11:24→20:54)
[2020-10-21] MEDS: Topiramate 25 MG TAB PER TUBE SCH ×2 (11:25→20:54)
[2020-10-21] MEDS: Lacosamide 50 mg Tablet PER TUBE SCH ×2 (12:29→20:54)
[2020-10-21] MEDS: Lopinavir/Ritonavir 80 MG/20 MG per ML Oral Solution PER TUBE SCH ×2 (12:29→21:09)
[2020-10-21 18:15] LABS: Hemoglobin 10.6 g/dL (14.0-18.0); Platelet Count 46 thou/uL (130-400)
[2020-10-21 18:36] LABS: Vancomycin, Random 26.2 ug/mL (See Comment)
[2020-10-21 18:37] LABS: Anion Gap 17 mmol/L (10-20); Calc. Creatinine Clearance 15 mL/min (70-130); Carbon Dioxide 16 mmol/L (22-29); Chloride 109 mmol/L (98-107); Glucose 107 mg/dL (70-105); Potassium 3.7 mmol/L (3.5-5.1); Sodium 138 mmol/L (136-145)
[2020-10-21 18:44] LABS: Calcium 5.9 mg/dL (7.8-10.44)
[2020-10-21 18:48] LABS: BUN (Urea Nitrogen) 120 mg/dL (8.9-20.6)
[2020-10-21] MEDS: Cefepime 1 GM in Sodium Chloride 0.9% 100 ML IVPB SCH (20:53)
[2020-10-21] MEDS ORDERED: Lactated Ringer's 500 ML IV SCH (23:30)
[2020-10-21 23:35] LABS: Hemoglobin 9.2 g/dL (14.0-18.0); Platelet Count 39 thou/uL (130-400)
[2020-10-22 04:04] LABS: Band 31 % (5-11); Hemoglobin 8.9 g/dL (14.0-18.0); Lymphocytes 4 % (21-51); MDiff Complete? YES; Mean Corpuscular HGB CONC 34.9 g/dL (32.0-36.0); Mean Corpuscular Hemoglobin 30.6 pg (27.0-31.0); Mean Corpuscular Volume 87.6 fL (78.0-98.0); Mean Platelet Volume 9.6 fL (7.4-10.4); Monocytes 1 % (0-10); Neutrophil 64 % (42-75); Nucleated RBC 1 % (0); Platelet Count 47 thou/uL (130-400); Platelet Morphology Comment Appears Decreased
[2020-10-22 04:11] LABS: ALT (SGPT) 106 U/L (8-55); AST (SGOT) 87 U/L (5-34); Albumin 1.4 g/dL (3.5-5.0); Alkaline Phosphatase 75 U/L (40-110); Anion Gap 17 mmol/L (10-20); Bilirubin, Total 1.5 mg/dL (0.2-1.2); Calc. Creatinine Clearance 15 mL/min (70-130); Carbon Dioxide 17 mmol/L (22-29); Chloride 108 mmol/L (98-107); Glucose 103 mg/dL (70-105); Potassium 3.5 mmol/L (3.5-5.1); Protein, Total 3.4 g/dL (6.0-8.3); Sodium 138 mmol/L (136-145)
[2020-10-22 04:18] LABS: Calcium 5.7 mg/dL (7.8-10.44)
[2020-10-22 04:23] LABS: BUN (Urea Nitrogen) 122 mg/dL (8.9-20.6)
[2020-10-22] MEDS: Hydrocortisone Sod Succ/PF 100 mg/2 ml Vial IVP SCH ×4 (05:28→20:57)
[2020-10-22] MEDS: Pantoprazole 40 MG VIAL IVP SCH ×2 (09:24→20:56)
[2020-10-22] MEDS: levETIRAcetam 500 mg/5 ml Oral Solution PER TUBE SCH ×2 (10:28→20:56)
[2020-10-22] MEDS: Lopinavir/Ritonavir 80 MG/20 MG per ML Oral Solution PER TUBE SCH ×2 (10:29→20:56)
[2020-10-22] MEDS: Sodium Bicarbonate Tab 325 MG TAB PER TUBE SCH ×3 (10:30→20:55)
[2020-10-22] MEDS: Topiramate 25 MG TAB PER TUBE SCH ×2 (10:30→20:57)
[2020-10-22] MEDS: Lacosamide 50 mg Tablet PER TUBE SCH ×2 (10:30→20:55)
[2020-10-22] MEDS: Cefepime 1 GM in Sodium Chloride 0.9% 100 ML IVPB SCH (20:56)
[2020-10-23] MEDS: Hydrocortisone Sod Succ/PF 100 mg/2 ml Vial IVP SCH ×2 (03:48→08:28)
[2020-10-23 04:27] LABS: ALT (SGPT) 89 U/L (8-55); AST (SGOT) 94 U/L (5-34); Albumin 1.3 g/dL (3.5-5.0); Alkaline Phosphatase 85 U/L (40-110); Anion Gap 20 mmol/L (10-20); Bilirubin, Total 1.4 mg/dL (0.2-1.2); Calc. Creatinine Clearance 13 mL/min (70-130); Carbon Dioxide 14 mmol/L (22-29); Chloride 110 mmol/L (98-107); Globulin 1.9 g/dL (2.4-3.5); Glucose 126 mg/dL (70-105); Potassium 3.6 mmol/L (3.5-5.1); Protein, Total 3.2 g/dL (6.0-8.3); Sodium 140 mmol/L (136-145)
[2020-10-23 04:34] LABS: Calcium 5.9 mg/dL (7.8-10.44)
[2020-10-23 04:39] LABS: BUN (Urea Nitrogen) 137 mg/dL (8.9-20.6)
[2020-10-23] MEDS ORDERED: Lactated Ringer's 500 ML IV SCH ×2 (04:45→06:15)
[2020-10-23] MEDS ORDERED: Lactated Ringer's 1,000 ML IV SCH (04:45)
[2020-10-23 06:10] LABS: Hemoglobin 6.2 g/dL (14.0-18.0); Mean Corpuscular HGB CONC 35.3 g/dL (32.0-36.0); Mean Corpuscular Volume 87.9 fL (78.0-98.0); Mean Platelet Volume 9.6 fL (7.4-10.4); Platelet Count 55 thou/uL (130-400); RBC Distribution Width 15.2 % (11.5-14.5); Red Blood Cell (RBC) Count 1.99 mill/uL (4.70-6.10)
[2020-10-23 07:24] VITALS: TEMP 96
[2020-10-23] MEDS: levETIRAcetam 500 mg/5 ml Oral Solution PER TUBE SCH (08:28)
[2020-10-23] MEDS: Topiramate 25 MG TAB PER TUBE SCH (08:28)
[2020-10-23] MEDS: Pantoprazole 40 MG VIAL IVP SCH (08:29)
[2020-10-23] MEDS: Sodium Bicarbonate Tab 325 MG TAB PER TUBE SCH ×2 (08:29→16:43)
[2020-10-23] MEDS: Lacosamide 50 mg Tablet PER TUBE SCH (08:34)
[2020-10-23 08:44] LABS: Band 15 % (5-11); Lymphocytes 10 % (21-51); MDiff Complete? YES; Monocytes 9 % (0-10); Myelocyte 1 % (0-0); Neutrophil 65 % (42-75); Nucleated RBC 7 % (0); Platelet Morphology Comment Appears Decreased; Polychromasia MODERATE = 3-4 cells (100X) (0-2/hpf); White Blood Cell (WBC) Count 12.2 thou/uL (4.8-10.8)
[2020-10-23] MEDS: Lopinavir/Ritonavir 80 MG/20 MG per ML Oral Solution PER TUBE SCH (10:07)
== END 2020-10-23 17:29 | disposition hospice, home (50) | DRG 974 ==
LOC: ERS 18:02 → CCU 19:48 → IMCU/EMU 10-22 16:28
PROVIDERS: ADMIT Family Medicine; ATTEND Family Medicine
PROC: 3E033XZ Introduction of Vasopressor into Peripheral Vein, Percutaneous Approach (ICD-10-PCS; principal; 2020-10-17)
PROC: 30233N1 Transfusion of Nonautologous Red Blood Cells into Peripheral Vein, Percutaneous Approach (ICD-10-PCS; 2020-10-17)
PROC: 06HY33Z Insertion of Infusion Device into Lower Vein, Percutaneous Approach (ICD-10-PCS; 2020-10-17)
PROC: 0D9670Z Drainage of Stomach with Drainage Device, Via Natural or Artificial Opening (ICD-10-PCS; 2020-10-17)
PROC: 0DJ08ZZ Inspection of Upper Intestinal Tract, Via Natural or Artificial Opening Endoscopic (ICD-10-PCS; 2020-10-19)
PROC: 30233K1 Transfusion of Nonautologous Frozen Plasma into Peripheral Vein, Percutaneous Approach (ICD-10-PCS; 2020-10-20)
PROC: 0DH67UZ Insertion of Feeding Device into Stomach, Via Natural or Artificial Opening (ICD-10-PCS; 2020-10-22)
DX: A41.9 Sepsis, unspecified organism (principal); G82.50 Quadriplegia, unspecified; B20 Human immunodeficiency virus [HIV] disease; E43 Unspecified severe protein-calorie malnutrition; R57.1 Hypovolemic shock; J69.0 Pneumonitis due to inhalation of food and vomit; R65.21 Severe sepsis with septic shock; K29.81 Duodenitis with bleeding; K26.4 Chronic or unspecified duodenal ulcer with hemorrhage; D65 Disseminated intravascular coagulation [defibrination syndrome]; E87.2 Acidosis; B18.1 Chronic viral hepatitis B without delta-agent; N17.9 Acute kidney failure, unspecified; N18.5 Chronic kidney disease, stage 5; E87.0 Hyperosmolality and hypernatremia; D62 Acute posthemorrhagic anemia; K94.23 Gastrostomy malfunction; J96.10 Chronic respiratory failure, unspecified whether with hypoxia or hypercapnia; G93.49 Other encephalopathy; Z20.822 Contact with and (suspected) exposure to COVID-19; Z66 Do not resuscitate; Z51.5 Encounter for palliative care; Y83.3 Surgical operation with formation of external stoma as the cause of abnormal reaction of the patient, or of later complication, without mention of misadventure at the time of the procedure; G40.909 Epilepsy, unspecified, not intractable, without status epilepticus; E86.0 Dehydration; B18.2 Chronic viral hepatitis C; K31.7 Polyp of stomach and duodenum; Z53.20 Procedure and treatment not carried out because of patient's decision for unspecified reasons; Y95 Nosocomial condition; E87.6 Hypokalemia; R19.7 Diarrhea, unspecified; E83.51 Hypocalcemia; Z68.22 Body mass index [BMI] 22.0-22.9, adult; Z79.899 Other long term (current) drug therapy; Z79.82 Long term (current) use of aspirin; Z87.891 Personal history of nicotine dependence; Z93.0 Tracheostomy status
CPT/HCPCS: 36415; 36416; 36430; 36556; 36600; 51702; 71045; 76705; 80053; 80061; 80177; 80202; 81003; 81015; 82550; 82553; 82805; 83605; 83690; 83735; 83880; 84145; 84484; 85025; 85046; 85048; 85384; 85610; 85652; 85730; 86361; 86850; 86900; 86901; 87040; 87086; 93005; 94640; 94760; 96365; 96366; 96368; 96375; 99292; C9113; C9399; J0692; J1720; J1953; J1956; J2405; J2543; J2704; J3370; J3475; J3480; J3490; J7070; P9016; P9059; U0002